=== PATIENT | female | born 1950 | race Caucasian/White ===

== ENCOUNTER 2018-11-24 12:12 | Emergency (ER) | payer OTHER, SELFPAY ==
[2018-11-24] VITALS (7 sets, daily range): BP systolic 161–201; BP diastolic 80–104; PULSE 97–128; RESP 16–29; TEMP 36.8–37.4; O2SAT 97–100
--- NOTE | 2018-11-24 12:25 | DI.RAD.S_ITS ---
PROCEDURE: XR CHEST 1V INDICATIONS: chest pain TECHNIQUE: One view of the chest was acquired. COMPARISON: None. FINDINGS: Surgical changes and devices: None. Lungs and pleura: Lungs are clear. No pleural effusions or pneumothorax. Mediastinum: Mediastinal contours appear normal. Heart size is normal. Bones and chest wall: No suspicious bony lesions. Overlying soft tissues appear unremarkable. IMPRESSION: Normal for age, source of current chest pain symptoms is not seen. Dictated by: Kei Trinh M.D. on 11/24/2018 at 12:55 Approved by: Kei Trinh M.D. on 11/24/2018 at 12:55
--- NOTE | 2018-11-24 12:28 | ED_ITS ---
HPI - General Adult General Chief complaint: Hypertension Stated complaint: high blood sugar, nausea, anxiety, diarrhea Time Seen by Provider: 11/24/18 12:28 Source: patient Mode of arrival: ambulatory Limitations: no limitations History of Present Illness HPI narrative: 68-year-old female comes the emergency department for multiple reasons. She states that she has been anxious for the past several days. She does have a history of anxiety. Does not take any anxiety medications. She also is diabetic. Not on insulin. She states she has been taking her blood sugars at home the past couple days and today it was greater than 300 which he states it has never been that high in the past. She also states that her blood pressure was elevated. She has not tried anything for her symptoms prior to arrival. Related Data Home Medications Medication Instructions Recorded Confirmed Vitamin D3 1 cap PO DAILY #0 12/29/11 11/24/18 multivitamin 1 tab PO DAILY #0 03/15/12 11/24/18 Anxiety Balance 1 dose PO DAILY 11/24/18 11/24/18 Calms 1 dose PO DAILY 11/24/18 11/24/18 Vitamin C 1 tab PO DAILY 11/24/18 11/24/18 glyburide 2.5 mg PO DAILY 11/24/18 11/24/18 levothyroxine 150 mcg PO DAILY 11/24/18 11/24/18 lisinopril 10 mg PO DAILY 11/24/18 11/24/18 metformin 1,000 mg PO QPM 11/24/18 11/24/18 metformin [Glucophage] 500 mg PO QAM 11/24/18 11/24/18 vitamin B complex 1 cap PO DAILY 11/24/18 11/24/18 Previous Rx's Medication Instructions Recorded Glucose: Test Strips 0 str INTRADERMAL SEE INSTRUCTIONS 09/28/18 #100 str lorazepam [Ativan] 0.5 mg PO BID-TID PRN #14 tab 11/24/18 Allergies Allergy/AdvReac Type Severity Reaction Status Date / Time No Known Drug Allergies Allergy Unknown Verified 11/24/18 12:25 Review of Systems Constitutional Denies fatigue, Denies fever(s) and Denies headache(s) ENT Ears, Nose, Mouth, and Throat: Denies dizziness and Denies headache(s) Cardiovascular Denies chest pain, Denies syncope, Denies leg edema, Denies palpitations and Denies dyspnea Comments: Elevated blood pressure Respiratory Denies dyspnea and Denies wheezing Gastrointestinal Gastrointestinal: Denies abdominal pain, Denies nausea and Denies vomiting Genitourinary Denies dysuria Musculoskeletal Denies myalgias and Denies arthralgias Integumentary/Breasts Denies rash Neurologic Denies dizziness, Denies syncope and Denies headache(s) Psychiatric Reports anxiety Endocrine Denies fatigue and Denies palpitations Hematologic/Lymphatic Denies easy bleeding and Denies easy bruising Allergic/Immunologic Denies wheezing PFSH Medical History Diabetes (Acute) Surgical History Status post delivery Status post delivery Family History Brother Cancer Brother Age: 72 Diabetes mellitus Child Age: 47 Ovarian cancer Colon cancer Father Cancer Diabetes mellitus Hypertension Grandmother Cancer Mother Cancer Grandmother Diabetes mellitus Social History Smoking Status: Never smoker Family History Brother Cancer Brother Age: 72 Diabetes mellitus Child Age: 47 Ovarian cancer Colon cancer Father Cancer Diabetes mellitus Hypertension Grandmother Cancer Mother Cancer Grandmother Diabetes mellitus Social History Smoking Status: Never smoker Exam Initial Vital Signs Initial Vital Signs: Vital Signs Temperature 98.3 F 11/24/18 12:15 Pulse Rate 128 H 11/24/18 12:15 Respiratory Rate 24 11/24/18 12:15 Blood Pressure 201/104 H 11/24/18 12:15 Pulse Oximetry 100 11/24/18 12:15 Const General: cooperative, well groomed and anxious Orientation: alert, awake and oriented x3 HENMT Head: normal to inspection and normocephalic Chest Chest: normal inspection of the chest Resp Effort & Inspection: normal respiratory effort Auscultation: clear to auscultation bilaterally Cardio Rate: tachycardic Rhythm: regular rhythm Pulses: radial pulses present GI Inspection: non-distended Palpation: No firm and No tender Skin Lesions: no lesions Rashes: no rashes Neuro General: alert, awake and oriented x3 Extrem General: normal to inspection, capillary refill normal and No edema Psych Appearance: grossly normal and well kempt Speech and Movement: not agitated and restless Mood: anxious mood and No angry Affect: sad Course Orders Ordered: ED Orders 11/24/18 12:25 XR chest 1V Stat EKG-12 Lead Stat 11/24/18 12:27 Complete Blood Count AUTO DIFF Stat Comprehensive Metabolic Panel Stat Lipase Stat Partial Thromboplastin Time Stat Prothrombin Time INR Stat Thyroid Stimulating Hormone Stat Troponin & CK Cardiac Panel Stat 11/24/18 13:10 Ictotest Urine Stat Urine Microscopic Stat Discontinued Medications Lorazepam (Ativan) 1 mg IV NOW ONE Stop: 11/24/18 12:42 Last Admin: 11/24/18 12:47 Dose: 1 mg Vital Signs - 8 hr 11/24/18 12:15 11/24/18 12:49 11/24/18 13:30 Temperature 98.3 F Pulse Rate 128 H 114 H 98 H Respiratory Rate 24 29 H 21 Blood Pressure 201/104 H Blood Pressure [Left Arm] 183/94 H 181/89 H Pulse Oximetry 100 99 97 11/24/18 14:02 11/24/18 14:30 11/24/18 15:00 Temperature Pulse Rate 103 H 97 H 102 H Respiratory Rate 16 18 17 Blood Pressure Blood Pressure [Left Arm] 161/80 H 194/96 H 173/86 H Pulse Oximetry 98 98 99 11/24/18 15:27 Temperature 99.4 F Pulse Rate 102 H Respiratory Rate 19 Blood Pressure 173/86 H Blood Pressure [Left Arm] Pulse Oximetry 99 Medical Decision Making Medical Records Medical records reviewed: Yes I reviewed the patient's medical records. Lab Data Lab results reviewed: Yes I reviewed the patient's lab results. Result diagrams: 11/24/18 12:27 11/24/18 12:27 Lab Results 11/24/18 11/24/18 11/24/18 Range/Units 12:27 12:27 12:27 WBC 11.2 H (4.5-11.0) X10^3/uL RBC 4.80 (4.0-5.2) X10^6/uL Hgb 13.8 (12.0-16.0) g/dL Hct 41.2 (36-46) % MCV 85.7 (80-100) fL MCH 28.8 (26-34) PG MCHC 33.6 (30-36) % RDW 13.1 (11.6-14.8) % Plt Count 230 (150-400) X10^3/uL Neut % (Auto) 80.3 H (50-75) % Lymph % (Auto) 14.4 L (25-40) % George % (Auto) 4.3 (3-14) % Eos % (Auto) 0.6 L (2-4) % Baso % (Auto) 0.4 (0-2) % Neut # (Auto) 9000 H (1408-7888) /uL Lymph # (Auto) 1600 (8244-8001) /uL George # (Auto) 500 (0-900) /uL Eos # (Auto) 100 (0-450) /uL Baso # (Auto) 0 (0-100) /uL PT 12.2 (10.1-12.7) SECONDS INR 1.1 (0.9-1.3) APTT 28 (26.4-36.2) SECONDS Sodium 133 L (137-145) mmol/L Potassium 4.5 (3.4-5.1) mmol/L Chloride 96 L (98-107) mmol/L Carbon Dioxide 23 (22-32) mmol/L BUN 20 H (7-17) mg/dL Creatinine 1.00 (0.52-1.04) mg/dL Estimated GFR 55.0 L (>60) mL/min BUN/Creatinine Ratio 20.0 (6-22) Glucose 312 H (80-110) mg/dL Calcium 9.3 (8.4-10.2) mg/dL Total Bilirubin 0.7 (0.2-1.3) mg/dL AST 20 (14-36) IU/L ALT 28 (9-52) IU/L Alkaline Phosphatase 83 (38-126) U/L Total Creatine Kinase 60 (30-135) U/L CK-MB (CK-2) TNP CK-MB (CK-2) Rel Index TNP Troponin I 0.012 (0.01-0.034) ng/mL Total Protein 7.5 (6.3-8.2) g/dL Albumin 4.6 (3.5-5.0) g/dL Globulin 2.9 (1.7-4.1) g/dL Albumin/Globulin Ratio 1.6 (1.0-2.8) Lipase 48 (23-300) U/L TSH (0.47-4.68) uIU/mL Urine Ictotest (Negative) Urine RBC (0-5/HPF) Urine WBC (0-5/HPF) Ur Squamous Epith Cells Urine Bacteria (None) Hyaline Casts (None) Ur Culture Indicated? 11/24/18 11/24/18 Range/Units 12:27 13:10 WBC (4.5-11.0) X10^3/uL RBC (4.0-5.2) X10^6/uL Hgb (12.0-16.0) g/dL Hct (36-46) % MCV (80-100) fL MCH (26-34) PG MCHC (30-36) % RDW (11.6-14.8) % Plt Count (150-400) X10^3/uL Neut % (Auto) (50-75) % Lymph % (Auto) (25-40) % George % (Auto) (3-14) % Eos % (Auto) (2-4) % Baso % (Auto) (0-2) % Neut # (Auto) (2569-9563) /uL Lymph # (Auto) (6986-0092) /uL George # (Auto) (0-900) /uL Eos # (Auto) (0-450) /uL Baso # (Auto) (0-100) /uL PT (10.1-12.7) SECONDS INR (0.9-1.3) APTT (26.4-36.2) SECONDS Sodium (137-145) mmol/L Potassium (3.4-5.1) mmol/L Chloride (98-107) mmol/L Carbon Dioxide (22-32) mmol/L BUN (7-17) mg/dL Creatinine (0.52-1.04) mg/dL Estimated GFR (>60) mL/min BUN/Creatinine Ratio (6-22) Glucose (80-110) mg/dL Calcium (8.4-10.2) mg/dL Total Bilirubin (0.2-1.3) mg/dL AST (14-36) IU/L ALT (9-52) IU/L Alkaline Phosphatase (38-126) U/L Total Creatine Kinase (30-135) U/L CK-MB (CK-2) CK-MB (CK-2) Rel Index Troponin I (0.01-0.034) ng/mL Total Protein (6.3-8.2) g/dL Albumin (3.5-5.0) g/dL Globulin (1.7-4.1) g/dL Albumin/Globulin Ratio (1.0-2.8) Lipase (23-300) U/L TSH 0.07 L (0.47-4.68) uIU/mL Urine Ictotest Negative (Negative) Urine RBC 1-5/hpf (0-5/HPF) Urine WBC 1-5/hpf (0-5/HPF) Ur Squamous Epith Cells 0-1 /hpf Urine Bacteria Few (2-10) H (None) Hyaline Casts 0-1/lpf (None) Ur Culture Indicated? Cult not indicated Urine Dip Bedside Urine Glucose 1000 mg/dl Bedside Urine Bilirubin + 1 Bedside Urine Ketone ++ 40 Urine Specific [place] 1.025 Bedside Urine Occult Blood ++ Bedside Urine pH 5.5 Bedside Urine Protein ++ 100 Bedside Urine Urobilinogen - Negative Bedside Urine Nitrite - Negative Bedside Urine Leukocytes - Negative Esterase Point of care testing: Urine Dip Bedside Urine Glucose 1000 mg/dl Bedside Urine Bilirubin + 1 Bedside Urine Ketone ++ 40 Urine Specific [place] 1.025 Bedside Urine Occult Blood ++ Bedside Urine pH 5.5 Bedside Urine Protein ++ 100 Bedside Urine Urobilinogen - Negative Bedside Urine Nitrite - Negative Bedside Urine Leukocytes - Negative Esterase Imaging Data Chest x-ray: Radiologist's impression: Patient: Mana Stewart R#: [id number] : 9Acct:[id number] Age/Sex: 68 / FDate of Service: 11/24/18 Loc: ED Accession Number: [id number] Procedure: XR chest 1V Ordering Provider: Gaston Kathleen D.O. PROCEDURE: XR CHEST 1V INDICATIONS: chest pain TECHNIQUE: One view of the chest was acquired. COMPARISON: None. FINDINGS: Surgical changes and devices: None. Lungs and pleura: Lungs are clear. No pleural effusions or pneumothorax. Mediastinum: Mediastinal contours appear normal. Heart size is normal. Bones and chest wall: No suspicious bony lesions. Overlying soft tissues appear unremarkable. IMPRESSION: Normal for age, source of current chest pain symptoms is not seen. Dictated by: Kei Trinh M.D. on 11/24/2018 at 12:55 Approved by: Kei Trinh M.D. on 11/24/2018 at 12:55 ECG Data Attestation: I personally reviewed and interpreted this ECG as follows: Prior ECG tracings: not available for review Interpretation: Sinus tachycardia Ventricular rate of 122 Left axis deviation Normal QRS Normal QTC Nonspecific ST T wave changes MDM Narrative Medical decision making narrative: Patient troponin is negative. After she received the Ativan she reported a great improvement in all of her symptoms. I do suspect that the vast majority of her symptoms today were caused by anxiety. She was hyperglycemic but no signs of DKA. Her TSH is low. She has had thyroid cancer in the past. Is on Synthroid. I do not feel that she is in thyroid storm. She has not had a change in her Synthroid in some time. Will send home with a short course of Ativan. She was instructed to contact her primary care doctor for follow-up. She was given return precautions. She expressed und erstanding and agreement with plan. Discharge Plan Departure Patient Disposition: Home Clinical Impression: Anxiety, Hyperglycemia, Heart palpitations Discharge Date/Time: 11/24/18 15:29 Interventions: ED Discharge Assessment Last Done: 11/24/18 15:27 Instructions: DI for Anxiety -- Adult, DI for Palpitations Activity Restrictions/Additional Instructions: Continue all of your medications as directed. I do recommend you contact your primary care doctor for a follow-up. Take the Ativan as needed for your anxiety. Return to the emergency department for any new or worsening symptoms Prescriptions: New lorazepam [Ativan] 0.5 mg tablet 0.5 mg PO BID-TID PRN (Reason: anxiety) Qty: 14 RF: 0 No Action Vitamin D3 1 cap PO DAILY Qty: 0 RF: 0 multivitamin Tablet 1 tab PO DAILY Qty: 0 RF: 0 Glucose: Test Strips Intradermal SEE INSTRUCTIONS Qty: 100 RF: 9 metformin [Glucophage] 500 mg tablet 500 mg PO QAM RF: 0 lisinopril 10 mg tablet 10 mg PO DAILY RF: 0 levothyroxine 150 mcg tablet 150 mcg PO DAILY RF: 0 Anxiety Balance 1 dose PO DAILY RF: 0 metformin 500 mg tablet 1,000 mg PO QPM RF: 0 vitamin B complex Capsule 1 cap PO DAILY RF: 0 Calms 1 dose PO DAILY RF: 0 Vitamin C 1 tab PO DAILY RF: 0 glyburide 2.5 mg tablet 2.5 mg PO DAILY RF: 0 Referrals: Karely Álvarez ARNP [Primary Care Provider] -
[2018-11-24 12:46] LABS: Add Manual Diff / Slide Review NO; Basophils Absolute Auto 0 /uL (0-100); Basophils Percent Auto 0.4 % (0-2); Eosinophils Absolute Auto 100 /uL (0-450); Eosinophils Percent Auto 0.6 % (2-4); Hematocrit 41.2 % (36-46); Hemoglobin 13.8 g/dL (12.0-16.0); Lymphocytes Absolute Auto 1600 /uL (1100-4500); Lymphocytes Percent Auto 14.4 % (25-40); Mean Corpuscular HGB Conc 33.6 % (30-36); Mean Corpuscular Hemoglobin 28.8 PG (26-34); Mean Corpuscular Volume 85.7 fL (80-100); Monocytes Absolute Auto 500 /uL (0-900); Monocytes Percent Auto 4.3 % (3-14); Neutrophils Absolute Auto 9000 /uL (1500-7000); Neutrophils Percent Auto 80.3 % (50-75); Platelet Count 230 X10^3/uL (150-400); Red Cell Distribution Width 13.1 % (11.6-14.8); White Blood Cell Count 11.2 X10^3/uL (4.5-11.0)
[2018-11-24] MEDS: LORazepam 2 MG/ML SYRINGE 1 MG IV (12:47)
[2018-11-24 12:57] LABS: INR 1.1 (0.9-1.3); Prothrombin Time 12.2 SECONDS (10.1-12.7)
[2018-11-24 13:00] LABS: PTT Partial Thromboplastin Tim 28 SECONDS (26.4-36.2)
[2018-11-24 13:02] LABS: Alanine Aminotransferase 28 IU/L (9-52); Albumin 4.6 g/dL (3.5-5.0); Albumin Globulin Ratio 1.6 (1.0-2.8); Alkaline Phosphatase 83 U/L (38-126); Aspartate Aminotransferase 20 IU/L (14-36); Bilirubin Total 0.7 mg/dL (0.2-1.3); Blood Urea Nitrogen 20 mg/dL (7-17); Calcium 9.3 mg/dL (8.4-10.2); Carbon Dioxide 23 mmol/L (22-32); Chloride 96 mmol/L (98-107); Creatine Kinase 60 U/L (30-135); Globulin 2.9 g/dL (1.7-4.1); Glucose 312 mg/dL (80-110); HEMOLYSIS < 15 (0-50); Lipase 48 U/L (23-300); Potassium 4.5 mmol/L (3.4-5.1); Sodium 133 mmol/L (137-145); Total Protein 7.5 g/dL (6.3-8.2)
[2018-11-24 13:14] LABS: Troponin I 0.012 ng/mL (0.01-0.034)
[2018-11-24 13:33] LABS: Thyroid Stimulating Hormone 0.07 uIU/mL (0.47-4.68)
[2018-11-24 13:48] LABS: Bacteria Urine Few (2-10); Culture Indicated Urine Cult Not Indicated; Hyaline Casts Urine 0-1/LPF; Ictotest Urine Negative (Negative); RBC Urine 1-5/HPF (0-5/HPF); Squamous Epithelial Cell Urine 0-1 /HPF; WBC Urine 1-5/HPF (0-5/HPF)
== END 2018-11-24 15:29 | disposition home or self-care (01) ==
PROVIDERS: Emergency Provider Emergency Medicine; Family Provider Internal Medicine; PCP Internal Medicine
DX: F41.9 Anxiety disorder, unspecified (principal); R73.9 Hyperglycemia, unspecified; R00.2 Palpitations
CPT/HCPCS: 36591; 71045; 80053; 81003; 81015; 82550; 83690; 84443; 84484; 85025; 85610; 85730; 93005; 93010; 96374; 99284; 99285; J2060

== ENCOUNTER → 2019-05-13 12:39 | Outpatient (CLI) | payer OTHER, SELFPAY ==
--- NOTE | 2019-05-13 | DI.MRI.S_ITS ---
PROCEDURE: MR HEAD/BRAIN WO/W CON INDICATIONS: BALANCE PROBLEMS TECHNIQUE: Noncontrast axial T1 spin echo, axial T2 fast spin echo, sagittal and axial FLAIR, coronal T2 fast spin echo, axial gradient echo, axial diffusion and ADC through the brain. After the administration of contrast, axial and coronal T1 spin echo with fat saturation through the brain. COMPARISON: None. FINDINGS: Image quality: Excellent. CSF spaces: Basal cisterns are patent. No extra-axial fluid collections. Ventricles are normal in size and shape. Brain: No midline shift. Left parietal encephalomalacia, chronic. In the left parietal extra-axial region, there is ill-defined nodular enhancement measuring 9 x 7 mm on axial image 129 series 14. There is cerebral volume loss for age. There is periventricular white matter chronic small vessel ischemic change. The brainstem appears normal. Diffusion-weighted images demonstrate no acute ischemic insults. No chronic ischemic insults. Normal intravascular flow voids are present. Skull and face: Left parietal calvarial signal changes presumably postoperative. Orbits appear normal. Sinuses: Sinuses and mastoids appear clear. IMPRESSION: Chronic left parietal encephalomalacia. Largely extra-axial appearing, ill-defined nodular enhancement in the region of left parietal calvarial postsurgical change. This could represent reactive dural enhancement, although technically indeterminate in the absence of relevant comparison studies. As such, a followup MRI brain with and without contrast in 3 months could be three-month could be performed if there is clinical suspicion for de danica or recurrent neoplasm. Alternatively, if prior contrast-enhanced studies can be obtained, these would be most helpful for further assessment of malignant potential. No evidence of acute ischemia. Dictated by: Garrett Fraser M.D. on 05/13/2019 at 14:42 Approved by: Garrett Fraser M.D. on 05/13/2019 at 14:58
== END ==
PROVIDERS: PCP Internal Medicine; Visit Provider Internal Medicine
DX: G93.89 Other specified disorders of brain (principal)
CPT/HCPCS: 70553; A9579

== ENCOUNTER 2020-11-13 19:07 | Inpatient (IN) | payer OTHER, SELFPAY ==
[2020-11-13] VITALS (11 sets, daily range): BP systolic 152–196; BP diastolic 73–96; PULSE 97–115; RESP 17–33; TEMP 36.4–36.7; O2SAT 97–100; BMI 23.6
--- NOTE | 2020-11-13 19:27 | ED.ABDPAIN ---
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 She admits to nausea but no vomiting and gradually increasing pain is seems to be worse with motion and improves with rest. She has had no fever chills and denies any new medications or change in her diet. She states she has had no significant change in her bowel habits other than some loose stools which seems to be rather common for her, and has been passing gas like normal. MD complaint: abdominal pain Onset (ago): hour(s) Pain Consistency: constant Location: RUQ Severity: severe Quality: cramping and aching Radiation: back Relieving factors: rest Exacerbating factors: eating and movement Associated symptoms: nausea Related Data Home Medications Medication Instructions Recorded Confirmed Vitamin D3 1 cap PO DAILY #0 12/29/11 11/13/20 multivitamin 1 tab PO DAILY #0 03/15/12 11/13/20 Vitamin C 1 tab PO DAILY 11/24/18 11/13/20 glyburide 2.5 mg PO DAILY 11/24/18 11/13/20 levothyroxine 150 mcg PO DAILY 11/24/18 11/13/20 lisinopril 10 mg PO DAILY 11/24/18 11/13/20 metformin 500 mg PO QPM 11/24/18 11/13/20 metformin [Glucophage] 500 mg PO QAM 11/24/18 11/13/20 vitamin B complex 1 cap PO DAILY 11/24/18 11/13/20 Previous Rx's Medication Instructions Recorded Glucose: Test Strips 0 str INTRADERMAL SEE INSTRUCTIONS 09/28/18 #100 str Allergies Allergy/AdvReac Type Severity Reaction Status Date / Time No Known Drug Allergies Allergy Unknown Verified 11/24/18 12:25 Review of Systems Constitutional Constitutional: Denies chills, Denies fatigue, Denies fever(s), Denies frequent falls, Denies lethargy and Denies weakness Eyes Eyes: Denies change in vision, Denies eye discharge, Denies irritation and Denies loss of vision ENT Ears, Nose, Mouth, and Throat: Denies change in voice, Denies dizziness, Denies neck pain, Denies sore throat and Denies throat swelling Cardiovascular Cardiovascular: Denies chest pain, Denies irregular heart rhythm, Denies lightheadedness, Denies palpitations, Denies dyspnea, Denies dyspnea on exertion and Denies orthopnea Respiratory Respiratory: Denies cough, Denies dyspnea, Denies dyspnea on exertion and Denies wheezing Gastrointestinal Gastrointestinal: Reports abdominal pain, Denies change in bowel habits, Denies diarrhea, Denies nausea and Denies vomiting Musculoskeletal Musculoskeletal: Denies neck pain and Denies numbness Integumentary/Breasts Skin/Breast: Denies pruritus, Denies erythema, Denies rash and Denies wounds Neurologic Neurologic: Denies behavioral changes, Denies confusion, Denies dizziness, Denies frequent falls, Denies loss of vision, Denies numbness and Denies weakness Psychiatric Psychiatric: Denies anxiety, Denies behavioral changes, Denies confusion, Denies depression, Denies homicidal ideation and Denies suicidal ideation Endocrine Endocrine: Denies fatigue, Denies flushing and Denies palpitations Hematologic/Lymphatic Hematologic/Lymphatic: Denies easy bruising Allergic/Immunologic Allergic/Immunologic: Denies urticaria, Denies throat swelling and Denies wheezing Patient History Medical History Diabetes Surgical History Status post delivery Status post delivery Family History Brother Cancer Brother Age: 74 Diabetes mellitus Child Age: 49 Ovarian cancer Colon cancer Father Cancer Diabetes mellitus Hypertension Grandmother Cancer Mother Cancer Grandmother Diabetes mellitus Social History household members: family Smoking Status: Never smoker Smoking Status: Never smoker alcohol intake frequency: 0-2 drinks per day Substance Use Type: does not use Exam Narrative Exam Narrative: GENERAL: [70] year old patient appears stated age. Well-nourished, well-developed patient, in mild distress. HEAD: Atraumatic. Normocephalic. EYES: Pupils equal round and reactive. Extraocular motions intact. No scleral icterus. No injection or drainage. ENT: Nose without bleeding, purulent drainage. Throat without erythema, tonsillar hypertrophy or exudate. Airway patent. NECK: Trachea midline. Non tender CARDIOVASCULAR: Regular rate and rhythm without murmurs, gallops, or rubs. RESPIRATORY: Clear to auscultation. Breath sounds equal bilaterally. No wheezes, rales, or rhonchi. GASTROINTESTINAL: Abdomen soft, tender in the periumbilical region, nondistended. No rebound EXTREMITIES: No edema or joint tenderness. BACK: Nontender without deformity or crepitance. No flank tenderness. NEURO: AOx3. SKIN: No rash or erythema of visible areas Initial Vital Signs Initial Vital Signs: Vital Signs Temperature 97.6 F 11/13/20 19:13 Pulse Rate 115 H 11/13/20 19:13 Respiratory Rate 20 11/13/20 19:13 Blood Pressure 196/96 H 11/13/20 19:13 Pulse Oximetry 99 11/13/20 19:13 Course Orders Ordered: ED Orders 11/13/20 19:28 EKG-12 Lead Stat 11/13/20 19:43 XR acute abdomen series Stat 11/13/20 19:46 Complete Blood Count AUTO DIFF Stat Comprehensive Metabolic Panel Stat Lactate (Lactic Acid) Stat Lipase Stat Partial Thromboplastin Time Stat Prothrombin Time INR Stat 11/13/20 20:18 CT abdomen pelvis w con Stat 11/13/20 21:30 Urine Culture Stat Urine Microscopic Stat 11/13/20 22:00 COVID19 Stat Hydromorphone HCl (Hydromorphone 0.5 Mg Inj) 0.5 mg IV Q2H PRN PRN Reason: Pain, Moderate (4-6) Sodium Chloride (Normal Saline 0.9%) 1,000 mls @ 125 mls/hr IV CONT NEGRITA Last Admin: 11/13/20 22:58 Dose: 125 mls/hr Documented by: BENJA Ondansetron HCl (Ondansetron 4 Mg/2 Ml Inj) 4 mg IV Q4HR PRN PRN Reason: Nausea And Vomiting Discontinued Medications Hydromorphone HCl (Hydromorphone 0.5 Mg Inj) 0.25 mg IV NOW ONE Stop: 11/13/20 19:48 Last Admin: 11/13/20 19:57 Dose: 0.25 mg Documented by: AMY Hydromorphone HCl (Hydromorphone 0.5 Mg Inj) 0.25 mg IV Q2H PRN PRN Reason: Pain, Severe (7-10) Last Admin: 11/13/20 22:56 Dose: 0.25 mg Documented by: BENJA Sodium Chloride (Normal Saline 0.9%) 1,000 mls @ 1,000 mls/hr IV BOLUS ONE Stop: 11/13/20 21:06 Last Infusion: 11/13/20 22:08 Dose: 0 mls/hr Documented by: Admin: 11/13/20 20:10 Dose: 1,000 mls/hr Documented by: KAREN Pantoprazole Sodium (Pantoprazole 40 Mg Vial) 40 mg IV NOW ONE Stop: 11/13/20 20:19 Last Admin: 11/13/20 20:24 Dose: 40 mg Documented by: KAREN Consultations Consultation #1: 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) happy to admit on his service, NO NG for now (unless vomiting) NPO , pain control , IVF @ 125mL/hr Vital Signs Vital signs: Vital Signs - 8 hr 11/13/20 19:13 11/13/20 19:55 11/13/20 20:00 Temperature 97.6 F Pulse Rate 115 H 108 H 101 H Respiratory Rate 20 19 17 Blood Pressure 196/96 H Pulse Oximetry 99 100 100 11/13/20 20:23 11/13/20 20:42 11/13/20 21:00 Temperature Pulse Rate 97 H 108 H 101 H Respiratory Rate 21 28 H Blood Pressure 152/73 H Pulse Oximetry 98 97 97 11/13/20 21:30 Temperature Pulse Rate 108 H Respiratory Rate 22 Blood Pressure Pulse Oximetry 99 MDM - Abdominal Pain Lab Data Result diagrams: 11/13/20 19:46 11/13/20 19:46 Labs: Lab Results 11/13/20 11/13/20 11/13/20 Range/Units 19:46 19:46 19:46 WBC 14.9 H (4.5-11.0) X10^3/uL RBC 4.66 (4.0-5.2) X10^6/uL Hgb 13.3 (12.0-16.0) g/dL Hct 39.7 (36-46) % MCV 85.3 (80-100) fL MCH 28.5 (26-34) PG MCHC 33.4 (30-36) % RDW 13.5 (11.6-14.8) % Plt Count 229 (150-400) X10^3/uL Neut % (Auto) 75.5 H (50-75) % Lymph % (Auto) 14.6 L (25-40) % [place]alier % (Auto) 7.2 (3-14) % Eos % (Auto) 2.0 (2-4) % Baso % (Auto) 0.7 (0-2) % Neut # (Auto) 98830 H (3899-9612) /uL Lymph # (Auto) 2200 (7712-2041) /uL [place]alier # (Auto) 1100 H (0-900) /uL Eos # (Auto) 300 (0-450) /uL Baso # (Auto) 100 (0-100) /uL PT 12.0 (10.1-12.7) SECONDS INR 1.0 (0.9-1.3) APTT 32 (26.4-36.2) SECONDS Sodium 137 (137-145) mmol/L Potassium 3.7 (3.4-5.1) mmol/L Chloride 103 (98-107) mmol/L Carbon Dioxide 24 (22-32) mmol/L BUN 25 H (7-17) mg/dL Creatinine 1.08 H (0.52-1.04) mg/dL Estimated GFR 50.0 L (>60) mL/min BUN/Creatinine Ratio 23.1 H (6-22) Glucose 200 H (80-110) mg/dL Lactate (0.7-2.1) mmol/L Calcium 9.6 (8.4-10.2) mg/dL Total Bilirubin 0.3 (0.2-1.3) mg/dL AST 18 (14-36) IU/L ALT 18 (<35) IU/L Alkaline Phosphatase 73 (38-126) U/L Total Protein 7.3 (6.3-8.2) g/dL Albumin 4.4 (3.5-5.0) g/dL Globulin 2.9 (1.7-4.1) g/dL Albumin/Globulin Ratio 1.5 (1.0-2.8) Lipase 69 (23-300) U/L Urine RBC (0-5/HPF) Urine WBC (0-5/HPF) Ur Transition Epith Cell (0-5/HPF) Ur Renal Epithelial Cell (0-1/HPF) Urine Bacteria (None) Urine Mucus (Negative) Ur Culture Indicated? 11/13/20 11/13/20 11/13/20 Range/Units 19:46 21:30 21:54 WBC (4.5-11.0) X10^3/uL RBC (4.0-5.2) X10^6/uL Hgb (12.0-16.0) g/dL Hct (36-46) % MCV (80-100) fL MCH (26-34) PG MCHC (30-36) % RDW (11.6-14.8) % Plt Count (150-400) X10^3/uL Neut % (Auto) (50-75) % Lymph % (Auto) (25-40) % Cavalier % (Auto) (3-14) % Eos % (Auto) (2-4) % Baso % (Auto) (0-2) % Neut # (Auto) (2909-1286) /uL Lymph # (Auto) (5661-3589) /uL Cavalier # (Auto) (0-900) /uL Eos # (Auto) (0-450) /uL Baso # (Auto) (0-100) /uL PT (10.1-12.7) SECONDS INR (0.9-1.3) APTT (26.4-36.2) SECONDS Sodium (137-145) mmol/L Potassium (3.4-5.1) mmol/L Chloride (98-107) mmol/L Carbon Dioxide (22-32) mmol/L BUN (7-17) mg/dL Creatinine (0.52-1.04) mg/dL Estimated GFR (>60) mL/min BUN/Creatinine Ratio (6-22) Glucose (80-110) mg/dL Lactate 3.0 H 0.9 (0.7-2.1) mmol/L Calcium (8.4-10.2) mg/dL Total Bilirubin (0.2-1.3) mg/dL AST (14-36) IU/L ALT (<35) IU/L Alkaline Phosphatase (38-126) U/L Total Protein (6.3-8.2) g/dL Albumin (3.5-5.0) g/dL Globulin (1.7-4.1) g/dL Albumin/Globulin Ratio (1.0-2.8) Lipase (23-300) U/L Urine RBC 0-1/hpf (0-5/HPF) Urine WBC 30-100/hpf H (0-5/HPF) Ur Transition Epith Cell 1-5/hpf (0-5/HPF) Ur Renal Epithelial Cell 0-1/hpf (0-1/HPF) Urine Bacteria Few (2-10) H (None) Urine Mucus 1+ H (Negative) Ur Culture Indicated? Specimen cultured Point of care testing: Urine Dip Bedside Urine Glucose Negative Bedside Urine Bilirubin - Negative Bedside Urine Ketone - Negative Urine Specific [place] 1.010 Bedside Urine Occult Blood ++ Bedside Urine pH 6.0 Bedside Urine Protein +/- 15 Bedside Urine Urobilinogen - Negative Bedside Urine Nitrite - Negative Bedside Urine Leukocytes ++ [address] scan - abdomen/pelvis: Radiologist's Impression: Mana Stewart Kiana 70 F [address] Scan ReportSigned Patient: Mana Stewart [facility]#: [id number]: 1950cct:[id number]/Sex: 70 / FDate of Service: 11/13/20Loc: EDAccession Number: [id number] Procedure: CT abdomen pelvis w con Ordering Provider: Tay Ayers D.O. PROCEDURE: CT ABDOMEN PELVIS W CON INDICATIONS: severe abdominal pain TECHNIQUE: After the administration of intravenous contrast, 5 mm thick sections acquired from the diaphragm to the symphysis. 5 mm coronal and sagittal reformats were acquired. For radiation dose reduction, the following was used: automated exposure control, adjustment of mA and/or kV according to patient size. COMPARISON: [facility], CT, ABDOMEN/PELVIS WITH CONTRAST, 11/19/2013, 5:23. FINDINGS: Image quality: Excellent. ABDOMEN: Lung bases: Lung bases are clear. Heart size is normal. There is a small hiatal hernia. Solid organs: Liver is normal in size and enhancement. There is a small amount of ascites around the liver. Gallbladder is surgically absent. Biliary system is mildly dilated. Common bile duct measures up to 8 mm. Pancreas is mildly atrophic and enhances normally. Spleen is normal in size and enhancement. No adrenal nodules. Kidneys demonstrate normal size and enhancement, without hydronephrosis. Peritoneum and bowel: Small bowel loops are filled with fluid and mildly distended measuring up to 3 cm. There is short segmental wall thickening and stranding involving the jejunum. Distal to the area, the small bowel loops are normal in caliber. The CT findings are consistent with small bowel obstruction. There are innumerable colonic diverticula. No CT findings suggests mild diverticulitis. There are postsurgical changes in the area of cecum. No free fluid or air. Nodes and vessels: No retroperitoneal or mesenteric adenopathy by size criteria. Aorta and inferior vena cava are normal in size. Miscellaneous: No ventral hernias. PELVIS: Genitourinary: Bladder is not fully distended. Uterus is unremarkable. No adnexal mass. No pathological free-fluid in pelvis. Miscellaneous: No inguinal hernias or adenopathy. Bones: No suspicious bony lesions. No vertebral body compression fractures. Severe degenerative changes in lumbar spine. IMPRESSION: 1. There is small bowel obstruction. There is short segmental thickening and stranding in the distal jejunum, which is the transitional zone for small bowel caliber change. 2. Extensive colonic diverticulosis. No findings to suggest acute diverticulitis. 3. There is a trace amount of free fluid. Dictated by: Chintan Travis M.D. on 11/13/2020 at 21:18 Approved by: Chintan Travis M.D. on 11/13/2020 at 21:27 Discharge Plan Departure Patient Disposition: Admitted As Inpatient Clinical Impression: Partial small bowel obstruction Admit Date/Time: 11/13/20 21:58 Admit Provider: Kermit Sahu
--- NOTE | 2020-11-13 19:43 | DI.RAD.S_ITS ---
PROCEDURE: XR ACUTE ABDOMEN SERIES INDICATIONS: Abdominal pain TECHNIQUE: One view chest and two views of the abdomen were acquired. COMPARISON: [facility], CT, ABDOMEN/PELVIS WITH CONTRAST, 11/19/2013, 5:23. FINDINGS: Surgical changes and devices: There are surgical clips in the right upper abdomen, presumably related to cholecystectomy.. Chest: Lungs are clear. Heart size is normal. No pleural effusions. No pneumoperitoneum. Abdomen: Bowel gas pattern is nonspecific. There is relative paucity of proximal small bowel gas. There is gas in the distal small bowel and distal colon. No suspicious calcifications. Visualized solid organ contours appear normal. Bones: No suspicious bony lesions. IMPRESSION: Nonspecific nonobstructive bowel gas pattern. Dictated by: Chintan Travis M.D. on 11/13/2020 at 20:18 Approved by: Chintan Travis M.D. on 11/13/2020 at 20:22
[2020-11-13 19:51] LABS: Add Manual Diff / Slide Review NO; Basophils Absolute Auto 100 /uL (0-100); Basophils Percent Auto 0.7 % (0-2); Eosinophils Absolute Auto 300 /uL (0-450); Hematocrit 39.7 % (36-46); Hemoglobin 13.3 g/dL (12.0-16.0); Lymphocytes Absolute Auto 2200 /uL (1100-4500); Lymphocytes Percent Auto 14.6 % (25-40); Mean Corpuscular HGB Conc 33.4 % (30-36); Mean Corpuscular Hemoglobin 28.5 PG (26-34); Mean Corpuscular Volume 85.3 fL (80-100); Monocytes Absolute Auto 1100 /uL (0-900); Monocytes Percent Auto 7.2 % (3-14); Neutrophils Absolute Auto 11300 /uL (1500-7000); Neutrophils Percent Auto 75.5 % (50-75); Platelet Count 229 X10^3/uL (150-400); Red Blood Cell Count 4.66 X10^6/uL (4.0-5.2); Red Cell Distribution Width 13.5 % (11.6-14.8); White Blood Cell Count 14.9 X10^3/uL (4.5-11.0)
[2020-11-13] MEDS: HYDROMORPHONE 0.5 MG INJ 0.25 MG IV ×2 (19:57→22:56)
[2020-11-13 20:01] LABS: PTT Partial Thromboplastin Tim 32 SECONDS (26.4-36.2)
[2020-11-13 20:02] LABS: Alanine Aminotransferase 18 IU/L (<35); Albumin 4.4 g/dL (3.5-5.0); Albumin Globulin Ratio 1.5 (1.0-2.8); Alkaline Phosphatase 73 U/L (38-126); Aspartate Aminotransferase 18 IU/L (14-36); BUN Creatinine Ratio 23.1 (6-22); Bilirubin Total 0.3 mg/dL (0.2-1.3); Blood Urea Nitrogen 25 mg/dL (7-17); Calcium 9.6 mg/dL (8.4-10.2); Carbon Dioxide 24 mmol/L (22-32); Chloride 103 mmol/L (98-107); Globulin 2.9 g/dL (1.7-4.1); Glucose 200 mg/dL (80-110); HEMOLYSIS < 15 (0-50); Lipase 69 U/L (23-300); Potassium 3.7 mmol/L (3.4-5.1); Sodium 137 mmol/L (137-145); Total Protein 7.3 g/dL (6.3-8.2)
[2020-11-13] MEDS: SODIUM CHLORIDE 0.9% 1,000 ML 1000 ML IV (20:10)
--- NOTE | 2020-11-13 20:18 | DI.CT.S_ITS ---
PROCEDURE: CT ABDOMEN PELVIS W CON INDICATIONS: severe abdominal pain TECHNIQUE: After the administration of intravenous contrast, 5 mm thick sections acquired from the diaphragm to the symphysis. 5 mm coronal and sagittal reformats were acquired. For radiation dose reduction, the following was used: automated exposure control, adjustment of mA and/or kV according to patient size. COMPARISON: [facility], CT, ABDOMEN/PELVIS WITH CONTRAST, 11/19/2013, 5:23. FINDINGS: Image quality: Excellent. ABDOMEN: Lung bases: Lung bases are clear. Heart size is normal. There is a small hiatal hernia. Solid organs: Liver is normal in size and enhancement. There is a small amount of ascites around the liver. Gallbladder is surgically absent. Biliary system is mildly dilated. Common bile duct measures up to 8 mm. Pancreas is mildly atrophic and enhances normally. Spleen is normal in size and enhancement. No adrenal nodules. Kidneys demonstrate normal size and enhancement, without hydronephrosis. Peritoneum and bowel: Small bowel loops are filled with fluid and mildly distended measuring up to 3 cm. There is short segmental wall thickening and stranding involving the jejunum. Distal to the area, the small bowel loops are normal in caliber. The CT findings are consistent with small bowel obstruction. There are innumerable colonic diverticula. No CT findings suggests mild diverticulitis. There are postsurgical changes in the area of cecum. No free fluid or air. Nodes and vessels: No retroperitoneal or mesenteric adenopathy by size criteria. Aorta and inferior vena cava are normal in size. Miscellaneous: No ventral hernias. PELVIS: Genitourinary: Bladder is not fully distended. Uterus is unremarkable. No adnexal mass. No pathological free-fluid in pelvis. Miscellaneous: No inguinal hernias or adenopathy. Bones: No suspicious bony lesions. No vertebral body compression fractures. Severe degenerative changes in lumbar spine. IMPRESSION: 1. There is small bowel obstruction. There is short segmental thickening and stranding in the distal jejunum, which is the transitional zone for small bowel caliber change. 2. Extensive colonic diverticulosis. No findings to suggest acute diverticulitis. 3. There is a trace amount of free fluid. Dictated by: Chintan Travis M.D. on 11/13/2020 at 21:18 Approved by: Chintan Travis M.D. on 11/13/2020 at 21:27
[2020-11-13] MEDS: PANTOPRAZOLE 40 MG VIAL IV (20:24)
[2020-11-13 21:48] LABS: Reflexed Lactate in 2 Hours Y
[2020-11-13 21:51] LABS: Bacteria Urine Few (2-10); RBC Urine 0-1/HPF (0-5/HPF); Transitional Epi Cells Urine 1-5/HPF (0-5/HPF); WBC Urine 30-100/HPF (0-5/HPF)
[2020-11-13 21:52] LABS: Culture Indicated Urine Specimen Cultured; Mucus Urine 1+ (Negative); Renal Epithelial Cells Urine 0-1/HPF (0-1/HPF)
[2020-11-13] MEDS: HYDROMORPHONE 0.5 MG INJ (22:03)
[2020-11-13 22:14] LABS: Lactate 2HR (Lactic Acid Rflx) 0.9 mmol/L (0.7-2.1)
[2020-11-13 22:18] LABS: COVID19 -Nasal RAPID Negative (Negative)
--- NOTE | 2020-11-13 22:39 | PC.ADMIT ---
[id number] Admission Note: The patient,Mana Stewart,70 y/o, was given written information regarding hospital policies, unit procedures and contact persons. Patient's smoking status: Never smoker. Vital Signs - 8 hr 11/13/20 19:13 11/13/20 19:55 11/13/20 20:00 Temperature 97.6 F Pulse Rate 115 H 108 H 101 H Respiratory Rate 20 19 17 Blood Pressure 196/96 H Pulse Oximetry 99 100 100 11/13/20 20:23 11/13/20 20:42 11/13/20 21:00 Temperature Pulse Rate 97 H 108 H 101 H Respiratory Rate 21 28 H Blood Pressure 152/73 H Pulse Oximetry 98 97 97 11/13/20 21:30 11/13/20 22:00 11/13/20 22:11 Temperature Pulse Rate 108 H 104 H 111 H Respiratory Rate 22 33 H 27 H Blood Pressure 185/94 H Pulse Oximetry 99 99 100 11/13/20 22:15 11/13/20 22:20 Temperature 98.0 F 97.5 F L Pulse Rate 107 H 108 H Respiratory Rate 26 H 24 Blood Pressure 185/94 H 161/83 H Pulse Oximetry 100 99 Patient up from ED via stretcher. 4 person assist with slider board. Patient c/o 9/10 abd pain even shortly after getting IVP dilaudid in ED. Patient A&O, cooperative.
[2020-11-13] MEDS: SODIUM CHLORIDE 0.9% 1,000 ML 125 ML IV (22:58)
[2020-11-14 00:56] VITALS: BP 176/82; PULSE 102; RESP 18; TEMP 36.2; O2SAT 98
[2020-11-14] MEDS: HYDROMORPHONE 0.5 MG INJ IV ×2 (01:20→09:29)
[2020-11-14 04:00] VITALS: BP 155/83; PULSE 101; RESP 18; TEMP 36.3; O2SAT 98
--- NOTE | 2020-11-14 05:36 | DI.RAD.S_ITS ---
PROCEDURE: FL SMALL BOWEL FOLLOW THROUGH INDICATIONS: small bowel obstruction COMPARISON: None. FINDINGS: KUB: Right upper quadrant surgical clips. Bilateral hip joint degeneration and spondylitic changes. Intraluminal contrast noted within the bladder incidentally. Small bowel: There is normal transit time of barium through the small bowel. Contrast reaches the rectal vault at the 1 hour 45 minutes time point. Small bowel loops are of normal caliber throughout. No specific transition point identified IMPRESSION: No specific transition point identified. Contrast reaches the rectal vault at the 1 hour 45 minutes time point. Dictated by: Garrett Fraser M.D. on 11/14/2020 at 12:13 Approved by: Garrett Fraser M.D. on 11/14/2020 at 12:14
[2020-11-14 07:56] LABS: Add Manual Diff / Slide Review NO; Basophils Absolute Auto 100 /uL (0-100); Basophils Percent Auto 0.4 % (0-2); Eosinophils Absolute Auto 0 /uL (0-450); Eosinophils Percent Auto 0.1 % (2-4); Hematocrit 34.8 % (36-46); Hemoglobin 11.7 g/dL (12.0-16.0); Lymphocytes Absolute Auto 1200 /uL (1100-4500); Lymphocytes Percent Auto 10.2 % (25-40); Mean Corpuscular HGB Conc 33.7 % (30-36); Mean Corpuscular Volume 85.9 fL (80-100); Monocytes Absolute Auto 800 /uL (0-900); Monocytes Percent Auto 6.4 % (3-14); Neutrophils Absolute Auto 9900 /uL (1500-7000); Neutrophils Percent Auto 82.9 % (50-75); Platelet Count 203 X10^3/uL (150-400); Red Blood Cell Count 4.05 X10^6/uL (4.0-5.2); Red Cell Distribution Width 13.1 % (11.6-14.8); White Blood Cell Count 11.9 X10^3/uL (4.5-11.0)
[2020-11-14 08:07] LABS: BUN Creatinine Ratio 23.6 (6-22); Blood Urea Nitrogen 21 mg/dL (7-17); Calcium 8.3 mg/dL (8.4-10.2); Carbon Dioxide 25 mmol/L (22-32); Chloride 108 mmol/L (98-107); Estimated Glomerular Filt Rate > 60.0 mL/min (>60); Glucose 217 mg/dL (80-110); HEMOLYSIS < 15 (0-50); Magnesium 1.5 mg/dL (1.6-2.3); Phosphorous 3.3 mg/dL (2.8-4.1); Potassium 4.1 mmol/L (3.4-5.1); Sodium 136 mmol/L (137-145)
[2020-11-14] MEDS: INSULIN ASPART 100 UNIT/ML INSULN PEN SUBCUT (08:38)
[2020-11-14 08:39] VITALS: BP 158/76; PULSE 109; RESP 17; TEMP 36.7; O2SAT 98
[2020-11-14] MEDS: ENOXAPARIN 30 MG/0.3 ML SYRINGE SUBCUT (08:39)
--- NOTE | 2020-11-14 08:47 | P.HP_ITS ---
History of Present Illness History of Present Illness Date Patient Seen: 11/14/20 Time Patient Seen: 08:49 Chief complaint: bad stomach pain Narrative: 70-year-old female history of abdominal surgery admitted for a partial small-bowel obstruction. Yesterday she developed mid abdominal pain associated with nausea and bloating. She is not passing flatus or bowel m ovement for 2 days. She has a very remote history of colectomy followed by chemotherapy for colon cancer as well as 2 prior sections. She has never had a prior small-bowel obstruction. Admission afebrile vital signs within normal limits WBC [address] abdomen pelvis admission demonstrates dilated loops of small bowel with some mild wall thickening a transition point, no free air. This morning she feels better than yesterday had no emesis overnight was mildly nauseous and continues to have some mild mid abdominal pain. Patient History Medical History Diabetes Essential hypertension (02/13/16) History of malignant neoplasm of colon (02/13/16) History of malignant neoplasm of colon (04/06/17) History of malignant neoplasm of thyroid (12/04/14) History of meningioma of the brain (12/04/14) Type 2 diabetes mellitus without complication, without long-term current use of insulin (02/13/16) Surgical History History of colectomy Status post delivery Status post delivery Family & Social History Family History Brother Cancer Brother Age: 74 Diabetes mellitus Child Age: 49 Ovarian cancer Colon cancer Father Cancer Diabetes mellitus Hypertension Grandmother Cancer Mother Cancer Grandmother Diabetes mellitus Social History: household members family Prior Living Arrangements House Safety & Behavioral: Feels Safe in Current Yes Environment Been Physically Hurt or No Threatened By a Person Suicidal Ideation Description None Suicide Plan Description No Plan Tobacco & Substance use: Smoking Status Never smoker alcohol intake frequency 0-2 drinks per day Substance Use Type does not use Meds Home Medications and Allergies Home Medications Medication Instructions Recorded Confirmed Type Vitamin D3 1 cap PO DAILY #0 12/29/11 11/13/20 History multivitamin 1 tab PO DAILY #0 03/15/12 11/13/20 History Glucose: Test Strips 0 str INTRADERMAL SEE INSTRUCTIONS 09/28/18 11/13/20 Rx #100 str Vitamin C 1 tab PO DAILY 11/24/18 11/13/20 History glyburide 2.5 mg PO DAILY 11/24/18 11/13/20 History levothyroxine 150 mcg PO DAILY 11/24/18 11/13/20 History lisinopril 10 mg PO DAILY 11/24/18 11/13/20 History metformin 500 mg PO QPM 11/24/18 11/13/20 History metformin [Glucophage] 500 mg PO QAM 11/24/18 11/13/20 History vitamin B complex 1 cap PO DAILY 11/24/18 11/13/20 History Allergies Allergy/AdvReac Type Severity Reaction Status Date / Time No Known Drug Allergies Allergy Unknown Verified 11/24/18 12:25 Review of Systems Review of Systems ROS: Yes All systems reviewed with the patient and are negative except as otherwise documented Exam Vital Signs (past 8 hours): - 11/14/20 00:56 11/14/20 04:00 11/14/20 08:39 Temperature 97.2 F L 97.4 F L 98.0 F Pulse Rate 102 H 101 H 109 H Respiratory Rate 18 18 17 Blood Pressure 176/82 H 155/83 H 158/76 H Pulse Oximetry 98 98 98 Oxygen Delivery Method Room Air Oxygen Flow Rate 0 Narrative Exam Narrative: General-no acute distress, well nourished elderly female HEENT-moist mucous membranes, no scleral icterus Neck-supple, no lymphadenopathy Chest- non labored respirations, clear to auscultation bilaterally Cardiac-regular rate no peripheral edema Abdomen-soft, mild distension mild tenderness in the mid abdomen no peritonitis Extremities-warm, well perfused Neurological-alert and oriented, no focal deficits Objective Labs Result Diagrams: 11/14/20 07:43 11/14/20 07:43 Labs: Laboratory Results - last 24 hr 11/13/20 11/13/20 11/13/20 19:46 19:46 19:46 WBC 14.9 H RBC 4.66 Hgb 13.3 Hct 39.7 MCV 85.3 MCH 28.5 MCHC 33.4 RDW 13.5 Plt Count 229 Neut % (Auto) 75.5 H Lymph % (Auto) 14.6 L [place] % (Auto) 7.2 Eos % (Auto) 2.0 Baso % (Auto) 0.7 Neut # (Auto) 62634 H Lymph # (Auto) 2200 [place] # (Auto) 1100 H Eos # (Auto) 300 Baso # (Auto) 100 PT 12.0 INR 1.0 APTT 32 Sodium 137 Potassium 3.7 Chloride 103 Carbon Dioxide 24 BUN 25 H Creatinine 1.08 H Estimated GFR 50.0 L BUN/Creatinine Ratio 23.1 H Glucose 200 H Lactate Calcium 9.6 Phosphorus Magnesium Total Bilirubin 0.3 AST 18 ALT 18 Alkaline Phosphatase 73 Total Protein 7.3 Albumin 4.4 Globulin 2.9 Albumin/Globulin Ratio 1.5 Lipase 69 Urine RBC Urine WBC Ur Transition Epith Cell Ur Renal Epithelial Cell Urine Bacteria Urine Mucus Ur Culture Indicated? SARS-CoV-2 (PCR) 11/13/20 11/13/20 11/13/20 19:46 21:30 21:54 WBC RBC Hgb Hct MCV MCH MCHC RDW Plt Count Neut % (Auto) Lymph % (Auto) [place] % (Auto) Eos % (Auto) Baso % (Auto) Neut # (Auto) Lymph # (Auto) [place] # (Auto) Eos # (Auto) Baso # (Auto) PT INR APTT Sodium Potassium Chloride Carbon Dioxide BUN Creatinine Estimated GFR BUN/Creatinine Ratio Glucose Lactate 3.0 H 0.9 Calcium Phosphorus Magnesium Total Bilirubin AST ALT Alkaline Phosphatase Total Protein Albumin Globulin Albumin/Globulin Ratio Lipase Urine RBC 0-1/hpf Urine WBC 30-100/hpf H Ur Transition Epith Cell 1-5/hpf Ur Renal Epithelial Cell 0-1/hpf Urine Bacteria Few (2-10) H Urine Mucus 1+ H Ur Culture Indicated? Specimen cultured SARS-CoV-2 (PCR) 11/13/20 11/14/20 11/14/20 22:00 07:43 07:43 WBC 11.9 H RBC 4.05 Hgb 11.7 L Hct 34.8 L MCV 85.9 MCH 29.0 MCHC 33.7 RDW 13.1 Plt Count 203 Neut % (Auto) 82.9 H Lymph % (Auto) 10.2 L [place] % (Auto) 6.4 Eos % (Auto) 0.1 L Baso % (Auto) 0.4 Neut # (Auto) 9900 H Lymph # (Auto) 1200 [place] # (Auto) 800 Eos # (Auto) 0 Baso # (Auto) 100 PT INR APTT Sodium 136 L Potassium 4.1 Chloride 108 H Carbon Dioxide 25 BUN 21 H Creatinine 0.89 Estimated GFR > 60.0 BUN/Creatinine Ratio 23.6 H Glucose 217 H Lactate Calcium 8.3 L Phosphorus 3.3 Magnesium 1.5 L Total Bilirubin AST ALT Alkaline Phosphatase Total Protein Albumin Globulin Albumin/Globulin Ratio Lipase Urine RBC Urine WBC Ur Transition Epith Cell Ur Renal Epithelial Cell Urine Bacteria Urine Mucus Ur Culture Indicated? SARS-CoV-2 (PCR) Negative Assessment & Plan Assessment and plan (1) Partial small bowel obstruction: Problem details: 70-year-old female history of colectomy and caesarean section admitted for small-bowel obstruction. Mild distension no peritonitis. Laboratory studies and imaging were reviewed. CT abdomen pelvis demonstrates fluid-filled loops of small bowel transition point no free air. I suspect her obstruction is most likely due to adhesive disease. -NPO IV fluids -NG tube if emesis -small-bowel follow-through today -SCDs and Lovenox for VTE prophylaxis Status: Acute
[2020-11-14] MEDS: MAGNESIUM SULFATE 2 GM/50 ML PIGGYBACK IV (09:29)
[2020-11-14] MEDS: SODIUM CHLORIDE 0.9% 1,000 ML 125 ML IV (09:35)
--- NOTE | 2020-11-14 10:40 | CM.DANOTE ---
Patient is a 70 year old female who was admitted on 11/13/20 for Abd Pain. Pt has [facility] [facility] for insurance and her PCP is Karely Álvarez. EMR was reviewed. Per Surgeon, pt with partial SBO and currently NPO with SBFT today to determine if surgical intervention needed or conservative tx. SW met bedside with pt and explained role and pt confirms that she lives at home in [place] with her adult disabled Dtr Kylie who is mostly independent but functions at around age level 10. Pt's spouse was moved into [facility] due to increased dementia behaviors and prior to that they had managed him at home with Parkinson's for 15 years with private pay caregivers. Pt's Dtr/DPOA Toña lives locally and currently staying at pt's home to be with her sister Kylie and can provide assist at d/c. Pt denies any personal hx with HH or SNF but aware of these services through her . Pt quite emotional and tearful and admits to having a very tough year with not being able to visit at [facility] due to COVID precautions and pt has been having some financial stressors due to the cost of care for her . Pt very thankful for her friends and Dtrs support but still quite anxious and emotional. Pt would be appreciative of dietary consult to answer some of her food questions as would feel relieved having HH RN/PT in place at d/c but uncertain at this time if pt would be considered Homebound and qualify for HH. Pt does confirm that she has been established with a therapist that she meets with once a week and feels this has been very helpful and supportive. SW provided encouragement and information to pt which seemed to ease some of her worries and anxiety. Dtr Toña can provide transport home when stable for d/c. Plan: SW to follow closely after SBFT and dietary consult towards determining d/c planning needs and if pt remains safe for plan of d/c home via Dtr POV and r/o HH RN/PT. CAROLANN Anguiano Discharge Planning/Care Management CM Discharge Assessment Start: 11/14/20 10:38 Freq: Status: Active Protocol: Document 11/14/20 10:38 BF (Rec: 11/14/20 10:40 BF [id number]) Discharge Planning Assessment Assigned Foreign Agent Britney, MEDICAL CHEMIST DPOA/Assigned Designee Name Netpali Ding Contact Information [phone] Advance Directives? No Advance Directives on File No History Provided By Patient,Medical Record Has Patient been admitted in last 30 No days? Prior Living Arrangements House Household Members family Type of transporation used prior to Drives own vehicle admit Comment Lives at home with her disabled adult Dtr Kylie, with Parkinson's and dementia moved into [facility] last year, and Dtr Toña lives locally and assists. Independent with ADL's Yes Is patient alert and oriented? Yes Needs Assistance With Home Chores / Shopping Caregiver for Another Yes: Disabled Dtr lives at home with pt DME Already Rented / Owned Cane Patient/Family Preference Home with Home Health Comment Follow for progress to determine if HH needed, pt is agreeable to HH Barriers to Discharge No Discharge Plan Home with Home Health Transportation Arrangement Neptali Ding available to transport home at d/c Additional Comment Waiting to r/o HH prior to referral Whiteboard Updated in Patient Room with Yes name and ext. # of Foreign Agent Review Status In Process Please Provide Date Initial DC 11/14/20 Assessment Was Performed Next Review Type Continued Stay Review
[2020-11-14 11:20] VITALS: BP 166/83; PULSE 99; RESP 16; TEMP 37.1; O2SAT 97
[2020-11-14] MEDS: LORazepam 0.5 MG TABLET PO (11:38)
--- NOTE | 2020-11-14 14:45 | PC.NURSE ---
IV removed, intact, tolerated well. DC instructions given by Manisha MURCIA. Pt's [id number] left to get pt clothing, will return with clothing and will take pt home.
== END 2020-11-14 15:20 | disposition home or self-care (01) | DRG 390 ==
LOC: ED 21:55 → AC 22:01
PROVIDERS: Admitting Provider Surgery; Emergency Provider Emergency Medicine; PCP Internal Medicine; Referring Provider Emergency Medicine; Visit Provider Surgery
DX: K56.51 Intestinal adhesions [bands], with partial obstruction (principal); I10 Essential (primary) hypertension; E11.9 Type 2 diabetes mellitus without complications; Z79.84 Long term (current) use of oral hypoglycemic drugs; Z20.822 Contact with and (suspected) exposure to COVID-19; Z85.038 Personal history of other malignant neoplasm of large intestine
CPT/HCPCS: 36415; 74022; 74177; 74250; 80048; 80053; 81003; 81015; 82962; 83605; 83690; 83735; 84100; 85025; 85610; 85730; 87077; 87086; 87186; 87635; 93005; 96361; 96374; 96375; 96376; 99222; 99284; C9803; C9113; J1170; J1650; J3475; Q9967

== ENCOUNTER → 2022-12-04 13:23 | Outpatient (CLI) | payer OTHER, SELFPAY ==
[2020-11-13 22:59] VITALS: BMI 23.6
--- NOTE | 2022-12-04 13:24 | DI.US.S_ITS ---
PROCEDURE: US SOFT TISSUE HEAD AND NECK INDICATIONS: SWELLING IN FRONT OF LEFT EAR TECHNIQUE: Real-time scanning was performed of the neck region of interest, with image documentation. COMPARISON: None. FINDINGS: No drainable fluid collection or distinct mass in the region in front of the left ear. IMPRESSION: No acute sonographic abnormality identified. Continued clinical follow-up is recommended and reimaging could be obtained if there is persistent concern with ultrasound or cross-sectional CT or MRI. Dictated by: Aldo Tsang M.D. on 12/04/2022 at 14:19 Approved by: Aldo Tsang M.D. on 12/04/2022 at 14:20
== END ==
PROVIDERS: PCP Internal Medicine; Referring Provider Physician Assistant; Visit Provider Physician Assistant
DX: R22.0 Localized swelling, mass and lump, head (principal)
CPT/HCPCS: 76536

== ENCOUNTER → 2022-12-11 15:07 | Outpatient (CLI) | payer OTHER, SELFPAY ==
[2020-11-13 22:59] VITALS: BMI 23.6
--- NOTE | 2022-12-11 | DI.RAD.S_ITS ---
PROCEDURE: XR TMJ LT INDICATIONS: LT TMJ PAIN TECHNIQUE: 5 view(s) of the temporomandibular joints acquired. COMPARISON: None. FINDINGS: Bones: Suboptimal evaluation of the temporomandibular joints bilaterally. No fractures or dislocations. No suspicious bony lesions. Soft tissues: No suspicious soft tissue calcifications. IMPRESSION: Limited evaluation of the temporomandibular joints. MRI is recommended for further assessment. Dictated by: Eyal Dickerson M.D. on 12/11/2022 at 16:13 Transcribed by: NOHEMI on 12/11/2022 at 16:14 Approved by: Eyal Dickerson M.D. on 12/11/2022 at 16:20
== END ==
PROVIDERS: PCP Internal Medicine; Referring Provider Internal Medicine; Visit Provider Internal Medicine
DX: M26.622 Arthralgia of left temporomandibular joint (principal)
CPT/HCPCS: 70330

== ENCOUNTER → 2023-01-05 13:48 | Outpatient (ROUT) | payer OTHER, SELFPAY ==
[2020-11-13 22:59] VITALS: BMI 23.6
[2023-01-05 16:31] LABS: Alanine Aminotransferase 24 IU/L (<35); Albumin 3.7 g/dL (3.5-5.0); Albumin Globulin Ratio 1.4 (1.0-2.8); Alkaline Phosphatase 68 U/L (38-126); Aspartate Aminotransferase 21 IU/L (14-36); BUN Creatinine Ratio 19.8 (6-22); Bilirubin Total 0.6 mg/dL (0.2-1.3); Blood Urea Nitrogen 20 mg/dL (7-17); Calcium 8.5 mg/dL (8.4-10.2); Carbon Dioxide 29 mmol/L (22-32); Chloride 98 mmol/L (98-107); Estimated Glomerular Filt Rate 59 mL/min (>60); Globulin 2.6 g/dL (1.7-4.1); Glucose 193 mg/dL (80-110); HEMOLYSIS < 15 (0-50); Potassium 4.3 mmol/L (3.4-5.1); Sodium 135 mmol/L (137-145); Total Protein 6.3 g/dL (6.3-8.2)
== END ==
PROVIDERS: PCP Internal Medicine; Visit Provider Registered Nurse
DX: N18.31 Chronic kidney disease, stage 3a (principal)
CPT/HCPCS: 80053

== ENCOUNTER 2023-03-02 14:20 | Observation (INO) | payer OTHER, SELFPAY ==
[2020-11-13 22:59] VITALS: BMI 23.6
[2023-03-02] VITALS (8 sets, daily range): BP systolic 166–194; BP diastolic 70–142; PULSE 98–117; RESP 12–18; TEMP 36.3–36.9; O2SAT 97–98; BMI 22.0
--- NOTE | 2023-03-02 14:32 | DI.CT.S_ITS ---
PROCEDURE: CT ANGIO HEAD AND NECK INDICATIONS: right leg and arm numbess TECHNIQUE: After the administration of intravenous contrast, 1 mm thick sections acquired from the aortic arch through the [place] of Lau. Post-contrast 4.5 mm thick sections then re-acquired from the foramen magnum to the vertex. MIP reformats of the arterial vasculature were utilized. For radiation dose reduction, the following was used: automated exposure control, adjustment of mA and/or kV according to patient size. COMPARISON: None. FINDINGS: Image quality: Excellent. HEAD CT ANGIOGRAPHY: Anterior circulation: Intracranial internal carotid arteries are normal in size and flow. The flow within the paired anterior cerebral arteries is normal and symmetric. The flow within the middle cerebral arteries is normal and symmetric. The anterior communicating artery is seen. No aneurysms are seen. Posterior circulation: Visualized portions of the vertebral arteries demonstrate normal caliber, and join to form a normal appearing basilar artery. Flow within the posterior cerebral arteries is normal and symmetric. No aneurysms are seen. Other: Small left parietal meningioma measures 1.1 cm associated with craniotomy and underlying old left parietal gliosis with encephalomalacia. NECK CT ANGIOGRAPHY: Carotid system: The great vessels demonstrate a conventional anatomy as they arise from the aortic arch. The origins of the common carotid arteries appear patent. The common carotid arteries demonstrate normal caliber and courses. The bifurcation regions are both widely patent. The internal carotid arteries demonstrate normal calibers and courses. Posterior circulation: The origins of the vertebral arteries both appear widely patent. The more superior extracranial portions of both vertebral arteries also demonstrate normal courses and calibers. They join to form a normal appearing basilar artery. Soft tissues: Visualized neck soft tissues demonstrate no suspicious abnormalities. Bones: Degenerative disc disease and arthropathy in the cervical spine results in reversal normal cervical lordosis as well as at least moderate central stenosis C4-5, C5-6 and C6-7 IMPRESSION: Unremarkable CT angio of the brain without large vessel occlusion, aneurysm or vascular malformation. Small left parietal meningioma 1.1 cm associated with craniotomy and underlying encephalomalacia/gliosis. Unremarkable CT angiogram neck without vascular stenosis. 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 Approved by: Ramon Brown M.D. on 03/02/2023 at 15:02
[2023-03-02 14:39] LABS: Add Manual Diff / Slide Review NO; Basophils Absolute Auto 0 /uL (0-100); Basophils Percent Auto 0.4 % (0-2); Eosinophils Absolute Auto 200 /uL (0-450); Eosinophils Percent Auto 1.6 % (2-4); Hematocrit 39.7 % (36-46); Hemoglobin 13.4 g/dL (12.0-16.0); Lymphocytes Absolute Auto 2100 /uL (1100-4500); Lymphocytes Percent Auto 20.2 % (25-40); Mean Corpuscular HGB Conc 33.9 % (30-36); Mean Corpuscular Hemoglobin 29.2 PG (26-34); Mean Corpuscular Volume 86.2 fL (80-100); Monocytes Absolute Auto 700 /uL (0-900); Monocytes Percent Auto 7.1 % (3-14); Neutrophils Absolute Auto 7300 /uL (1500-7000); Neutrophils Percent Auto 70.7 % (50-75); Platelet Count 223 X10^3/uL (150-400); Red Blood Cell Count 4.61 X10^6/uL (4.0-5.2); Red Cell Distribution Width 13.6 % (11.6-14.8); White Blood Cell Count 10.4 X10^3/uL (4.5-11.0)
[2023-03-02 14:41] LABS: Prothrombin Time 11.7 SECONDS (10.1-12.7)
--- NOTE | 2023-03-02 14:41 | DI.CT.S_ITS ---
PROCEDURE: CT STROKE INDICATIONS: word trouble finding TECHNIQUE: Noncontrast 4.5 mm thick angled axial sections acquired from the foramen magnum to the vertex, with coronal reformats. For radiation dose reduction, the following was used: automated exposure control, adjustment of mA and/or kV according to patient size. COMPARISON: [facility], MR, MR HEAD/BRAIN WO/W CON, 05/13/2019, 13:03. FINDINGS: Image quality: Excellent. CSF spaces: Basal cisterns are patent. No extra-axial fluid collections. Ventricles are normal in size and shape. Brain: No midline shift. No intracranial masses or hemorrhage. Encephalomalacia in the left parietal lobe. Periventricular hypodensity consistent with chronic microvascular ischemic change. Age-related parenchymal loss. Skull and face: Left lateral and vertex nithya holes. Calvarium and visualized facial bones are intact, without suspicious lesions. Sinuses: Visualized sinuses and mastoids are clear. IMPRESSION: No acute intracranial abnormality. Similar encephalomalacia in the left parietal lobe. Comment: Findings were discussed with Cindy Isidro at time of dictation. This study fulfills neurological imaging criteria for inclusion or exclusion of acute stroke therapies based on available published neurological imaging guidelines. Dictated by: Tejinder Delgado M.D. on 03/02/2023 at 15:02 Approved by: Tejinder Delgado M.D. on 03/02/2023 at 15:08
--- NOTE | 2023-03-02 14:42 | ED_ITS ---
HPI - Neuro Symptoms/Deficit General Chief Complaint: Neuro Symptoms/Deficit Stated Complaint: intermittent R arm numbness Time Seen by Provider: 03/02/23 14:28 Source: patient and EMS Mode of arrival: EMS History of Present Illness HPI Narrative: Patient is 72-year-old female history of diabetes essential hypertension, colon cancer presenting today with intermittent right arm and leg numbness which started around noon. She does have a history of stuttering she is stuttering now which is normal for her however she is having some word-finding difficulty which is new according to granddaughter at bedside. No chest pain or shortness of breath. It sounds like the arm numbness and tingling is off and on difficult to tell how long it is going for seconds to minutes or hours. On Anticoagulants: No Related Data Home Medications Medication Instructions Recorded Confirmed multivitamin 1 tab PO DAILY ##0 03/15/12 03/02/23 glyburide 2.5 mg tablet 2.5 mg PO DAILY 11/24/18 03/02/23 metformin 500 mg tablet 1,000 mg PO BID 11/24/18 03/02/23 ketoconazole 2 % topical cream 1 applic topical BID PRN Rash 03/02/23 03/02/23 levothyroxine 125 mcg tablet 125 mcg PO DAILY 03/02/23 03/02/23 lisinopril 20 mg tablet 20 mg PO DAILY 03/02/23 03/02/23 Allergies Allergy/AdvReac Type Severity Reaction Status Date / Time No Known Drug Allergies Allergy Unknown Verified 03/02/23 14:31 Review of Systems Review of Systems ROS Unobtainable: All systems reviewed & are unremarkable except as noted in HPI and below Hematologic/Lymphatic On Anticoagulants: No Patient History Medical History Diabetes Essential hypertension (02/13/16) History of malignant neoplasm of colon (02/13/16) History of malignant neoplasm of colon (04/06/17) History of malignant neoplasm of thyroid (12/04/14) History of meningioma of the brain (12/04/14) Type 2 diabetes mellitus without complication, without long-term current use of insulin (02/13/16) Surgical History History of colectomy Status post delivery Status post delivery Family History Brother Cancer Brother Age: 77 Diabetes mellitus Child Age: 52 Ovarian cancer Colon cancer Father Cancer Diabetes mellitus Hypertension Grandmother Cancer Mother Cancer Grandmother Diabetes mellitus Social History household members: family Smoking Status: Never smoker alcohol intake: never Smoking Status: Never smoker alcohol intake frequency: 0-2 drinks per day Substance Use Type: does not use Exam Initial Vital Signs Initial Vital Signs: Vital Signs Pulse Rate 117 H 03/02/23 14:31 Respiratory Rate 18 03/02/23 14:31 Blood Pressure 186/109 H 03/02/23 14:31 Pulse Oximetry 98 03/02/23 14:31 Oxygen Delivery Method Room Air 03/02/23 14:31 GENERAL: Alert 72-year-old female stuttering speech and in no acute distress. HEENT: Head atraumatic,EOMI, pupils reactive, face symmetric, moist mucous membranes CARDIOVASCULAR: Regular rate and rhythm without murmurs, rubs or gallops. RESPIRATORY: Breath sounds equal bilaterally, no wheezes rales or rhonchi. ABDOMEN: Soft, nontender. Normoactive bowel sounds all 4 quadrants. No guarding or rebound. EXTREMITIES: Normal range of motion, no clubbing or edema. Neurovascularly intact NEUROLOGICAL: Alert and oriented x1.Normal gait and speech. Cranial nerves II through XII grossly intact. [id number] is difficult, strength equal bilaterally, no dysarthria or aphasia, sensation in tact to soft touch bilaterally, no visual changes, no facial droop SKIN: Warm, dry, no laceration, no petechiae, no rashes or lesions. Scores NIH Stroke Scale Level of Conciousness: Alert, keenly responsive Ask month/age: Answers neither question correctly, aphasic, stuporous, coma Open/close eyes, close hand: Performs both tasks correctly Best gaze horizontal: Normal Visual khan: No visual loss Facial palsy: Normal symetrical movement Left arm drift: No drift for full 10 sec Right arm drift: No drift for full 10 sec Left leg drift: No drift for full 5 sec Right leg drift: No drift for full 5 sec Limb ataxia: Present in one limb Sensory on face/arms/legs: Normal, no sensory loss Best language: Mild to moderate, slurs some words Dysarthria: Mild to mod,some slurring Extinction or inattention: No abnormality Total NIH Stroke scale score: 5 Course Orders Ordered: ED Orders 03/02/23 14:22 Complete Blood Count AUTO DIFF Stat Comprehensive Metabolic Panel Stat Ethanol (ETOH) Stat PTT Partial Thromboplastin Kermit Stat Prothrombin Time INR Stat TSH [Thyroid Stimulating Hormone] Stat Troponin & CK Cardiac Panel Stat 03/02/23 14:29 EKG-12 Lead Stat 03/02/23 14:32 CT angio head and neck Stat 03/02/23 14:41 CT Stroke Stat 03/02/23 15:29 Urine Culture Stat Urine Drug Screen, Rapid Stat Urine Microscopic Stat Acetaminophen (Acetaminophen 325 Mg Tablet) 650 mg PO Q6H PRN PRN Reason: Fever/Mild Pain (1-3) Hydrocodone Bitart/Acetaminophen (Hydrocodone/Acet 5/325 Tablet) 1 tab PO Q4H PRN PRN Reason: Pain, Moderate (4-6) Calcium Carbonate (Calcium Carbonate 500 Mg Tab) 1,000 mg PO Q4HR PRN PRN Reason: Dyspepsia Hydromorphone HCl (Hydromorphone 0.5 Mg Inj) 0.5 mg IV Q2H PRN PRN Reason: Pain, Severe (7-10) Ketoconazole (Ketoconazole 2% Cream 15 Gm) 1 applic TOP BID PRN PRN Reason: Rash Levothyroxine Sodium (Levothyroxine 125 Mcg Tablet) 125 mcg PO DAILY@0600 [facility] Lisinopril (Lisinopril 20 Mg Tablet) 20 mg PO DAILY [facility] Lorazepam (Lorazepam 2 Mg/Ml Inj) 0.5 mg IV Q4HR PRN PRN Reason: Anxiety Lorazepam (Lorazepam 0.5 Mg Tablet) 0.5 mg PO Q4HR PRN PRN Reason: Anxiety Magnesium Hydroxide (Magnesium Hydroxide 30 Ml Udc) 30 ml PO DAILY PRN PRN Reason: Constipation Metformin HCl (Metformin Hcl 500 Mg Tablet) 1,000 mg PO BID [facility] Multivitamins (Multivitamin 1 Tablet) 1 tab PO DAILY [facility] Naloxone HCl (Naloxone 0.4 Mg/Ml Vial) 0.2 mg IV Q2MIN PRN PRN Reason: Opiate Reversal Ondansetron HCl (Ondansetron 4 Mg/2 Ml Inj) 4 mg IV Q6HR PRN PRN Reason: Nausea And Vomiting Pantoprazole Sodium (Pantoprazole Dr 20 Mg Tablet) 20 mg PO 0600 [facility] Discontinued Medications Acetaminophen (Acetaminophen 325 Mg Tablet) 975 mg PO NOW ONE Stop: 03/02/23 16:05 Last Admin: 03/02/23 17:06 Dose: 325 mg Documented By: JAVON Aspirin (Aspirin 81 Mg Chew Tab) 324 mg PO NOW ONE Stop: 03/02/23 16:30 Last Admin: 03/02/23 18:00 Dose: 324 mg Documented By: RITO Lisinopril (Lisinopril 20 Mg Tablet) 20 mg PO NOW ONE Stop: 03/02/23 16:31 Last Admin: 03/02/23 17:37 Dose: 20 mg Documented By: RITO Metoprolol Succinate (Metoprolol Er 25 Mg Tablet) 25 mg PO NOW ONE Stop: 03/02/23 19:18 Vital Signs Vital signs: Vital Signs - 8 hr 03/02/23 14:31 03/02/23 15:48 Pulse Rate 117 H 109 H Respiratory Rate 18 12 Blood Pressure 186/109 H 192/86 H Pulse Oximetry 98 98 Oxygen Delivery Method Room Air Room Air MDM - Neuro Symptoms/Deficit Lab Data 03/02/23 14:22 03/02/23 14:22 Labs: Lab Results 03/02/23 03/02/23 03/02/23 Range/Units 14:22 14:22 14:22 WBC 10.4 (4.5-11.0) X10^3/uL RBC 4.61 (4.0-5.2) X10^6/uL Hgb 13.4 (12.0-16.0) g/dL Hct 39.7 (36-46) % MCV 86.2 (80-100) fL MCH 29.2 (26-34) PG MCHC 33.9 (30-36) % RDW 13.6 (11.6-14.8) % Plt Count 223 (150-400) X10^3/uL Neut % (Auto) 70.7 (50-75) % Lymph % (Auto) 20.2 L (25-40) % Hayes % (Auto) 7.1 (3-14) % Eos % (Auto) 1.6 L (2-4) % Baso % (Auto) 0.4 (0-2) % Neut # (Auto) 7300 H (8203-9782) /uL Lymph # (Auto) 2100 (4566-6421) /uL Hayes # (Auto) 700 (0-900) /uL Eos # (Auto) 200 (0-450) /uL Baso # (Auto) 0 (0-100) /uL PT 11.7 (10.1-12.7) SECONDS INR 1.0 (0.9-1.3) APTT 32 (26-36) SECONDS Sodium 137 (137-145) mmol/L Potassium 5.1 (3.4-5.1) mmol/L Chloride 103 (98-107) mmol/L Carbon Dioxide 23 (22-32) mmol/L BUN 27 H (7-17) mg/dL Creatinine 1.13 H (0.52-1.04) mg/dL Estimated GFR 51 L (>60) mL/min BUN/Creatinine Ratio 23.9 H (6-22) Glucose 224 H (80-110) mg/dL Calcium 9.2 (8.4-10.2) mg/dL Total Bilirubin 0.4 (0.2-1.3) mg/dL AST 25 (14-36) IU/L ALT 30 (<35) IU/L Alkaline Phosphatase 63 (38-126) U/L Total Creatine Kinase 47 (30-135) U/L CK-MB (CK-2) TNP CK-MB (CK-2) Rel Index TNP Troponin I < 0.012 (0.01-0.034) ng/mL Total Protein 7.6 (6.3-8.2) g/dL Albumin 4.6 (3.5-5.0) g/dL Globulin 3.0 (1.7-4.1) g/dL Albumin/Globulin Ratio 1.5 (1.0-2.8) TSH (0.47-4.68) uIU/mL Urine RBC (0-5/HPF) Urine WBC (0-5/HPF) Ur Squamous Epith Cells (0-5/HPF) Urine Bacteria (None) Ur Culture Indicated? U Opiates 300ng/mL cut (Negative) Ur Oxycodone Screen (Negative) Urine Methadone Screen (Negative) Ur Barbiturates Screen (Negative) U Tricyclic Antidepress (Negative) Ur Phencyclidine Scrn (Negative) Ur Amphetamines Screen (Negative) U Methamphetamines Scrn (Negative) Ur MDMA Scrn (Ecstasy) (Negative) U Benzodiazepines Scrn (Negative) Urine Cocaine Screen (Negative) U Marijuana (THC) Screen (Negative) Ethyl Alcohol < 10 ( - 10) mg/dL 03/02/23 03/02/23 03/02/23 Range/Units 14:22 15:29 15:29 WBC (4.5-11.0) X10^3/uL RBC (4.0-5.2) X10^6/uL Hgb (12.0-16.0) g/dL Hct (36-46) % MCV (80-100) fL MCH (26-34) PG MCHC (30-36) % RDW (11.6-14.8) % Plt Count (150-400) X10^3/uL Neut % (Auto) (50-75) % Lymph % (Auto) (25-40) % Hayes % (Auto) (3-14) % Eos % (Auto) (2-4) % Baso % (Auto) (0-2) % Neut # (Auto) (1940-7285) /uL Lymph # (Auto) (0402-9089) /uL Hayes # (Auto) (0-900) /uL Eos # (Auto) (0-450) /uL Baso # (Auto) (0-100) /uL PT (10.1-12.7) SECONDS INR (0.9-1.3) APTT (26-36) SECONDS Sodium (137-145) mmol/L Potassium (3.4-5.1) mmol/L Chloride (98-107) mmol/L Carbon Dioxide (22-32) mmol/L BUN (7-17) mg/dL Creatinine (0.52-1.04) mg/dL Estimated GFR (>60) mL/min BUN/Creatinine Ratio (6-22) Glucose (80-110) mg/dL Calcium (8.4-10.2) mg/dL Total Bilirubin (0.2-1.3) mg/dL AST (14-36) IU/L ALT (<35) IU/L Alkaline Phosphatase (38-126) U/L Total Creatine Kinase (30-135) U/L CK-MB (CK-2) CK-MB (CK-2) Rel Index Troponin I (0.01-0.034) ng/mL Total Protein (6.3-8.2) g/dL Albumin (3.5-5.0) g/dL Globulin (1.7-4.1) g/dL Albumin/Globulin Ratio (1.0-2.8) TSH 0.052 L (0.47-4.68) uIU/mL Urine RBC None seen (0-5/HPF) Urine WBC 5-10/hpf H (0-5/HPF) Ur Squamous Epith Cells None seen (0-5/HPF) Urine Bacteria Occasional (0-1) (None) Ur Culture Indicated? Specimen cultured U Opiates 300ng/mL cut Negative (Negative) Ur Oxycodone Screen Negative (Negative) Urine Methadone Screen Negative (Negative) Ur Barbiturates Screen Negative (Negative) U Tricyclic Antidepress Negative (Negative) Ur Phencyclidine Scrn Negative (Negative) Ur Amphetamines Screen Negative (Negative) U Methamphetamines Scrn Negative (Negative) Ur MDMA Scrn (Ecstasy) Negative (Negative) U Benzodiazepines Scrn Negative (Negative) Urine Cocaine Screen Negative (Negative) U Marijuana (THC) Screen Negative (Negative) Ethyl Alcohol ( - 10) mg/dL Point of Care Testing Glucose POC 204 Urine Dip Bedside Urine Glucose Negative Bedside Urine Bilirubin - Negative Bedside Urine Ketone - Negative Urine Specific Juliaetta 1.010 Bedside Urine Occult Blood + Bedside Urine pH 6.0 Bedside Urine Protein - Negative Bedside Urine Urobilinogen - Negative Bedside Urine Nitrite - Negative Bedside Urine Leukocytes - Negative Esterase Imaging Data CT scan - head: Radiologist's Impression: PROCEDURE:? CT STROKE ? INDICATIONS:? word trouble finding ? TECHNIQUE:? Noncontrast 4.5 mm thick angled axial sections acquired from the foramen magnum to the vertex, with coronal reformats.? For radiation dose reduction, the following was used:? automated exposure control, adjustment of mA and/or kV according to patient size.? ? COMPARISON:? [facility], MR, MR HEAD/BRAIN WO/W CON, 05/13/2019, 13:03. ? FINDINGS:? Image quality:? Excellent.? ? CSF spaces:? Basal cisterns are patent.? No extra-axial fluid collections.? Ventricles are normal in size and shape.? ? Brain:? No midline shift.? No intracranial masses or hemorrhage.? Encephalomalacia in the left parietal lobe.? Periventricular hypodensity consistent with chronic m icrovascular ischemic change. Age-related parenchymal loss. ? Skull and face:? Left lateral and vertex nithya holes.? Calvarium and visualized facial bones are intact, without suspicious lesions.? ? Sinuses:? Visualized sinuses and mastoids are clear.? ? IMPRESSION:? No acute intracranial abnormality. ? Similar encephalomalacia in the left parietal lobe. ? Comment: Findings were discussed with Cindy Isidro at time of dictation. ? This study fulfills neurological imaging criteria for inclusion or exclusion of acute stroke therapies based on available published neurological imaging guidelines.? ? ? Dictated by: Tejinder Delgado M.D. on 03/02/2023 at 15:02 ? ? ECG Data Interpretation: EKG 1. Sinus rhythm rate 107 ME interval [address] changes no T-wave inversions similar to previous EKGs MDM Narrative Medical decision making narrative: Patient 72-year-old female presents today with history of stroke and intermittent right arm and leg numbness and stuttering. The stuttering is not old however she starts to have aphasia difficulty naming objects in the ED. difficult to really get a true NIH stroke scale secondary to inability to understand ataxia and directions. She is within the window of tPA but difficult to really tell what is old and new. Not a clear tPA candidate but within the window. Dr. Hughes stroke doctor at [facility] updated patient's symptoms test results video in undecided not a tPA candidate. But does recommend observation CV rule out with overnight observation and MRI. Patient actually improved her symptoms completely without stuttering able to follow commands for the exam however quickly reverted back to some aphasia and staggering. On CT patient has old area in the left side, difficult to tell if right-sided deficits are old new or exacerbated from this lesion. Head CT CT angio are negative. Blood work shows mild elevation in creatinine of 1.13- troponin no leukocytosis. Dr. Darden updated on patient's symptoms test results neuro recommendation Discharge Plan Departure Patient Disposition: Admitted as Observation Clinical Impression: Brain TIA Admit Date/Time: 03/02/23 16:57 Admit Provider: Shanita Darden
[2023-03-02 14:44] LABS: PTT Partial Thromboplastin Tim 32 SECONDS (26-36)
[2023-03-02 14:48] LABS: Alanine Aminotransferase 30 IU/L (<35); Albumin 4.6 g/dL (3.5-5.0); Albumin Globulin Ratio 1.5 (1.0-2.8); Alkaline Phosphatase 63 U/L (38-126); Aspartate Aminotransferase 25 IU/L (14-36); BUN Creatinine Ratio 23.9 (6-22); Bilirubin Total 0.4 mg/dL (0.2-1.3); Blood Urea Nitrogen 27 mg/dL (7-17); Calcium 9.2 mg/dL (8.4-10.2); Carbon Dioxide 23 mmol/L (22-32); Chloride 103 mmol/L (98-107); Creatine Kinase 47 U/L (30-135); Estimated Glomerular Filt Rate 51 mL/min (>60); Ethanol (ETOH) < 10 mg/dL; Glucose 224 mg/dL (80-110); HEMOLYSIS 24 (0-50); Potassium 5.1 mmol/L (3.4-5.1); Sodium 137 mmol/L (137-145); Total Protein 7.6 g/dL (6.3-8.2)
[2023-03-02 15:01] LABS: Troponin I < 0.012 ng/mL (0.01-0.034)
[2023-03-02 15:59] LABS: UR Morphine/Opiate cutoff 300 Negative (Negative); Ur Creatinine Normal (Normal); Ur Specific Gravity Normal (Normal); Urine Amphetamines Negative (Negative); Urine Barbiturates Negative (Negative); Urine Benzodiazepines Negative (Negative); Urine Cocaine Negative (Negative); Urine MDMA Negative (Negative); Urine Methadone Negative (Negative); Urine Methamphetamines Negative (Negative); Urine Oxycodone Negative (Negative); Urine Phencyclidine Negative (Negative); Urine Tetrahydrocannabinol Negative (Negative); Urine Tricyclic Antidepressant Negative (Negative); Urine pH Normal (Normal)
--- NOTE | 2023-03-02 16:12 | PC.NURSE ---
patient's interview with telestroke showed improvement of symptoms. weakness in arms and legs greatly improved. sensation improved from nurses NIH. After telestroke was over the patient complains of numbness in arm worsening and getting cold.
[2023-03-02 16:22] LABS: Bacteria Urine Occasional (0-1); Culture Indicated Urine Specimen Cultured; RBC Urine None Seen (0-5/HPF); Squamous Epithelial Cell Urine None Seen (0-5/HPF); WBC Urine 5-10/HPF (0-5/HPF)
[2023-03-02] MEDS: ACETAMINOPHEN 325 MG TABLET 975 MG PO (17:06)
--- NOTE | 2023-03-02 17:06 | PC.NURSE ---
patient was nauseated and could not take po meds
[2023-03-02 17:24] LABS: Thyroid Stimulating Hormone 0.052 uIU/mL (0.47-4.68)
[2023-03-02] MEDS: lisinopriL 20 MG TABLET PO (17:37)
[2023-03-02] MEDS: ASPIRIN 81 MG CHEW TAB 324 MG PO (18:00)
--- NOTE | 2023-03-02 18:49 | PC.NURSE ---
Pt arrived from ED at approximately 1700, A&Ox 2, difficult to assess as she has some word finding difficulty and expressive aphasia. SBP 180's, she c/o headache and n/v. MD notified. PERRLA, she denies facial numbness or R arm tingling. Noted speech is clear. Patient reports baseline R sided weaker than L. She is able to pass bedside swallow eval and have sips of water with meds. BG is 155. MD arrived to bedside this evening at 1820 and evaluates patient. Tele monitoring, Sinus tachycardia. Daughter at bedside supportive. Bed alarm, call light in reach and frequent rounding.
--- NOTE | 2023-03-02 19:01 | PM.HP.1 ---
History of Present Illness History of Present Illness Date Patient Seen: 03/02/23 Time Patient Seen: 19:01 Date of Onset of Symptoms: 03/02/23 Chief complaint: intermittent R arm numbness Narrative: This is a very pleasant 72-year-old female who under the care of JONATHAN Casillas. She is followed for type 2 diabetes, non insulin-dependent; hypertension, hypothyroidism, anxiety for which she is not treated, chronic kidney disease stage IIIA, diabetic neuropathy, history of colon cancer and ovarian cancer, and benign brain tumor, meningioma approximately 30 years ago had surgery for this. The patient presented to the ER today with her granddaughter who lives with her for complaints of sudden onset at approximately 12:30 p.m. of difficulty finding words and some numbness in her right arm. This seemed to improve by the time she had a tele conference with Neurology and they did not feel that she met criteria for thrombolytics. A CT angio was unremarkable other than evidence of very small meningioma where patient previously had had surgery for meningioma. She was admitted to the hospital upon the recommendation of [facility] neurology stroke team and admitted for further treatment and monitoring. The patient since she is been in the hospital has complained of a headache and nausea. She was recently given Zofran. The remainder of her workup was negative in the ER. Past medical history: 1. Hypothyroidism 2. Hypertension 3. Type 2 diabetes with mild peripheral neuropathy 4. History of ovarian cancer unclear type 5. History of colon cancer 6. Stage 3 chronic kidney disease 7. Anxiety, refuses treatment 8. Insomnia See med list Allergies no known drug allergies Past surgical history: Intracranial surgery for removal of a benign meningioma approximately 30 years ago. 2. Tonsillectomy 3. Cholecystectomy age 31 4. Colon resection in her 40s 5. Thyroid removal mid 80s 6. Brain tumor removal age 41 Family history: Her dad at age 84 from bone cancer and lung cancer and diabetes Mother at 39 from uterine cancer Brother at age 23 from brain cancer Another brother at 68 from complications diabetes Social history patient lives in and [place] with her disabled daughter and her 2 grandchildren Health related behavior: Patient has never been a smoker and does not use alcohol 12 point review of systems is remarkable for having COVID-19 illness about 2 months ago with mild symptoms and no residual No weight loss or weight gain Recently no bright red blood per rectum or black tarry stools. No neurologic symptoms. No headaches or fevers or nausea or vomiting no recent weight loss or weight gain. Patient was last seen in the office in September of this year [facility] Medical History Diabetes Essential hypertension (02/13/16) History of malignant neoplasm of colon (02/13/16) History of malignant neoplasm of colon (04/06/17) History of malignant neoplasm of thyroid (12/04/14) History of meningioma of the brain (12/04/14) Type 2 diabetes mellitus without complication, without long-term current use of insulin (02/13/16) Surgical History History of colectomy Status post delivery Status post delivery Family History Brother Cancer Brother Age: 77 Diabetes mellitus Child Age: 52 Ovarian cancer Colon cancer Father Cancer Diabetes mellitus Hypertension Grandmother Cancer Mother Cancer Grandmother Diabetes mellitus Social History household members: family Smoking Status: Never smoker alcohol intake: never Meds Home Medications and Allergies Home Medications Medication Instructions Recorded Confirmed Type multivitamin 1 tab PO DAILY ##0 03/15/12 03/02/23 History glyburide 2.5 mg tablet 2.5 mg PO DAILY 11/24/18 03/02/23 History metformin 500 mg tablet 1,000 mg PO BID 11/24/18 03/02/23 History ketoconazole 2 % topical cream 1 applic topical BID PRN Rash 03/02/23 03/02/23 History levothyroxine 125 mcg tablet 125 mcg PO DAILY 03/02/23 03/02/23 History lisinopril 20 mg tablet 20 mg PO DAILY 03/02/23 03/02/23 History Allergies Allergy/AdvReac Type Severity Reaction Status Date / Time No Known Drug Allergies Allergy Unknown Verified 03/02/23 14:31 Review of Systems Review of Systems Narrative: Twelve point review of systems is negative other than above Exam Vital Signs (past 8 hours): - 03/02/23 14:31 03/02/23 15:48 03/02/23 17:37 Temperature Pulse Rate 117 H 109 H 108 H Respiratory Rate 18 12 Blood Pressure 186/109 H 192/86 H 181/142 H Pulse Oximetry 98 98 Oxygen Delivery Method Room Air Room Air 03/02/23 17:00 Temperature 97.3 F L Pulse Rate 113 H Respiratory Rate 18 Blood Pressure 184/137 H Pulse Oximetry 97 Oxygen Delivery Method Oxygen Delivery Method Room Air Narrative Exam Narrative: Afebrile vital signs are stable Patient appears older than her stated age. Patient alert and oriented x3. Patient is a good historian. Patient did not have any difficulty finding words while I am talking to her Head is normocephalic atraumatic Eyes pupils equal round reactive to light. Extraocular movements intact Nares patent Oropharynx without erythema or exudate, halitosis, mucous membranes moist and pink and poor dentition Neck: Supple without adenopathy or thyromegaly Chest: Clear to auscultation without wheezes rhonchi or crackles Cor regular rate and rhythm without a murmur Abdomen: Positive bowel sounds, soft, nontender, nondistended, no hepatosplenomegaly Extremities no edema, dry skin diffusely with excoriation scabs and thickened nails that are dystrophic Neurologic exam is nonfocal. Cranial nerves 2-12 are grossly intact. Romberg is negative. Strength is 5/5 in all large muscle groups of upper and lower extremities. Patient is easily able to follow commands. Objective Labs 03/02/23 14:22 03/02/23 14:22 Labs: Laboratory Results - last 24 hr 03/02/23 03/02/23 03/02/23 14:22 14:22 14:22 WBC 10.4 RBC 4.61 Hgb 13.4 Hct 39.7 MCV 86.2 MCH 29.2 MCHC 33.9 RDW 13.6 Plt Count 223 Neut % (Auto) 70.7 Lymph % (Auto) 20.2 L Hardin % (Auto) 7.1 Eos % (Auto) 1.6 L Baso % (Auto) 0.4 Neut # (Auto) 7300 H Lymph # (Auto) 2100 Hardin # (Auto) 700 Eos # (Auto) 200 Baso # (Auto) 0 PT 11.7 INR 1.0 APTT 32 Sodium 137 Potassium 5.1 Chloride 103 Carbon Dioxide 23 BUN 27 H Creatinine 1.13 H Estimated GFR 51 L BUN/Creatinine Ratio 23.9 H Glucose 224 H Calcium 9.2 Total Bilirubin 0.4 AST 25 ALT 30 Alkaline Phosphatase 63 Total Creatine Kinase 47 CK-MB (CK-2) TNP CK-MB (CK-2) Rel Index TNP Troponin I < 0.012 Total Protein 7.6 Albumin 4.6 Globulin 3.0 Albumin/Globulin Ratio 1.5 TSH Urine RBC Urine WBC Ur Squamous Epith Cells Urine Bacteria Ur Culture Indicated? U Opiates 300ng/mL cut Ur Oxycodone Screen Urine Methadone Screen Ur Barbiturates Screen U Tricyclic Antidepress Ur Phencyclidine Scrn Ur Amphetamines Screen U Methamphetamines Scrn Ur MDMA Scrn (Ecstasy) U Benzodiazepines Scrn Urine Cocaine Screen U Marijuana (THC) Screen Ethyl Alcohol < 10 03/02/23 03/02/23 03/02/23 14:22 15:29 15:29 WBC RBC Hgb Hct MCV MCH MCHC RDW Plt Count Neut % (Auto) Lymph % (Auto) Hardin % (Auto) Eos % (Auto) Baso % (Auto) Neut # (Auto) Lymph # (Auto) Hardin # (Auto) Eos # (Auto) Baso # (Auto) PT INR APTT Sodium Potassium Chloride Carbon Dioxide BUN Creatinine Estimated GFR BUN/Creatinine Ratio Glucose Calcium Total Bilirubin AST ALT Alkaline Phosphatase Total Creatine Kinase CK-MB (CK-2) CK-MB (CK-2) Rel Index Troponin I Total Protein Albumin Globulin Albumin/Globulin Ratio TSH 0.052 L Urine RBC None seen Urine WBC 5-10/hpf H Ur Squamous Epith Cells None seen Urine Bacteria Occasional (0-1) Ur Culture Indicated? Specimen cultured U Opiates 300ng/mL cut Negative Ur Oxycodone Screen Negative Urine Methadone Screen Negative Ur Barbiturates Screen Negative U Tricyclic Antidepress Negative Ur Phencyclidine Scrn Negative Ur Amphetamines Screen Negative U Methamphetamines Scrn Negative Ur MDMA Scrn (Ecstasy) Negative U Benzodiazepines Scrn Negative Urine Cocaine Screen Negative U Marijuana (THC) Screen Negative Ethyl Alcohol Assessment & Plan Assessment & Plan narrative: 72-year-old female with history of hypertension, hypothyroidism and type 2 diabetes presents with neurologic symptoms concerning for possible TIA or CVA. CT of the head and CT a of head and neck are unrevealing other than previous meningioma that is small and residual from previous resection. Plan: Will admit to the hospital for further monitoring and treatment. Concern for possible cerebellar incident. We will keep her blood pressure at permissive high level. Will do echo in the morning. Will continue telemetry. Will do a MRI of her head in the morning. Will consult speech therapy, physical therapy, occupational therapy. Will treat with aspirin therapy. Assessment 2. Hypertension not well-controlled but patient with severe anxiety and white coat hypertension Plan: Will treat with lisinopril 20 mg daily. This are outpatient regimen. Will give a 1 time dose of metoprolol and consider adjusting this pending what her echo shows an how her blood pressures to while she is in the hospital. Assessment 3. Type 2 diabetes on oral medications. Will hold the sulfonylurea and continue the metformin and will do CBGS q.a.c. and q.h.s. and will give sliding scale insulin Assessment 4. Hypothyroidism Plan continue outpatient regimen Assessment 5. Nausea unclear etiology will continue treat with Zofran. Will do MRI of her head in the morning. Assessment 6. Currently with headache unclear etiology wonder if this is musculoskeletal are intracranial related to ongoing neurologic symptoms. We will do MRI in a.m.. CT was reassuring. Will treat with Tylenol and hydrocodone if needed. Will also treat with lorazepam. Assessment 7. 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 Plan: Will provide lorazepam. Patient has no history of problems with this Code status is full code for now. Time spent with patient was 75 minutes. This was in discussing with ER physician, nursing, reviewing her clinic chart and hospital chart and meeting with patient, formulating a plan and documentation Quality VTE Deep Vein Thrombosis/Pulmonary Embolism Present on Admission: No
[2023-03-02] MEDS: LORazepam 2 MG/ML INJ 0.5 MG IV (20:15)
[2023-03-02] MEDS: HYDROMORPHONE 0.5 MG INJ IV (20:15)
[2023-03-02] MEDS: METFORMIN HCL 500 MG TABLET 1000 MG PO (20:19)
[2023-03-02] MEDS: METOPROLOL ER 25 MG TABLET PO (20:19)
[2023-03-03] VITALS (8 sets, daily range): BP systolic 98–174; BP diastolic 45–89; PULSE 75–108; RESP 16–18; TEMP 36.2–37; O2SAT 96–99
[2023-03-03] MEDS: HYDROMORPHONE 0.5 MG INJ IV (02:17)
[2023-03-03] MEDS: LORazepam 2 MG/ML INJ 0.5 MG IV ×2 (02:18→09:04)
[2023-03-03] MEDS: LEVOTHYROXINE 125 MCG TABLET PO (06:11)
[2023-03-03] MEDS: PANTOPRAZOLE DR 20 MG TABLET PO (06:11)
--- NOTE | 2023-03-03 06:24 | DI.ECHO.S_ITS ---
[facility]---------+ [facility] +---------+ : : [address] : : : : [id number] : : : : Phone: [phone]+ Echocardiogram Report + + :Name: GILMA TRISTAN V Study Date: 03/03/2023 Height: 68 in : :[facility] ReadingLocation: Weight: 145 lb : : Gender: Female BSA: 1.8 m2 : :: 1950 Age: 72 yrs BP: 106/49 mmHg: :Reason For Study: TIA : :Ordering Physician: ILEANA, : :MORENO Performed By: Melinda Jacques : :Referring: MORENO TEJEDA : + + Interpretation Summary The ejection fraction is estimated to be 60-65%. Diastolic parameters suggest probable normal left ventricular diastolic function and normal filling pressures. The right ventricular systolic function is normal. The right ventricular systolic pressure is estimated to be at least 28 mmHg based on an estimated right atrial pressure of 3 mm Hg. There is no Doppler evidence for an interatrial shunt. The aortic valve is mildly calcified. There is no aortic valve stenosis. No significant valvular abnormality. Procedure: A two-dimensional transthoracic echocardiogram with color flow and Doppler was performed. The study quality was technically adequate. There is no prior echocardiogram noted for this patient. The patient was in sinus rhythm with heart rates between 72-85 bpm during the exam. Left Ventricle: The left ventricle is normal in size and wall thickness. The ejection fraction is estimated to be 60-65%. Diastolic parameters suggest probable normal left ventricular diastolic function and normal filling pressures. Right Ventricle: The right ventricle is not well visualized. The right ventricle is grossly normal size. The right ventricular systolic function is normal. Atria: The left atrial size is normal. Right atrial size is normal. There is no Doppler evidence for an interatrial shunt. Mitral Valve: There is mild mitral annular calcification. The mitral valve leaflets appear mildly thickened, but open well. There is trace mitral regurgitation. Aortic Valve: The aortic valve is not well visualized. The aortic valve is mildly calcified. There is no aortic valve stenosis. No aortic regurgitation is present. Tricuspid Valve: The tricuspid valve is normal in structure and function. There is mild tricuspid regurgitation. The right ventricular systolic pressure is estimated to be at least 28 mmHg based on an estimated right atrial pressure of 3 mm Hg. Pulmonic Valve: The pulmonic valve is not well visualized. Great Vessels: The aortic root is normal size. The dimensions of the ascending aorta are normal. The IVC is of normal diameter and collapses greater than 50% with a sniff. This suggests a low right atrial pressure of 3 mm Hg. Pericardium/ Pleura There is no pericardial effusion. There is no pleural effusion. MMode/2D Measurements & Calculations LVIDd: 3.5 cm LVOT diam: 2.1 cm LVIDs: 2.2 cm Ao root diam: 3.1 cm FS: 37.0 % asc Aorta Diam: 3.2 cm EPSS: 0.63 cm Ao Arch Diam (Prox Trans): 1.9 cm IVSd: 1.00 cm LVPWd: 0.85 cm LV hall. diameter/BSA (cm/m^2): 1.9 LV sys. diameter/BSA (cm/m^2): 1.2 LA A2 area: 21.5 cm2 RA long axis: 4.8 cm LA A4 area: 15.5 cm2 RA area: 15.0 cm2 LA length (vol): 4.9 cm RA vol: 40.1 ml LA vol: 57.2 ml RA : 22.5 ml/m2 LA vol index: 32.1 ml/m2 IVC diam: 1.7 cm Doppler Measurements & Calculations Ao V2 max: 115.4 cm/sec LVOT Max Jacky: 72.7 cm/sec Ao V2 mean: 85.7 cm/sec LV V1 max P.1 mmHg Ao max P.3 mmHg LV V1 VTI: 18.3 cm Ao mean P.3 mmHg MELODIE(I,D): 2.5 cm2 Ao V2 VTI: 27.1 cm MELODIE(V,D): 2.3 cm2 sev ratio: 0.68 MELODIE indexed to BSA (cm^2/m^2): 1.4 MV E max jacky: 82.4 cm/sec TR max jacky: 250.5 cm/sec MV A max jacky: 65.2 cm/sec TR max P.1 mmHg MV E/A: 1.3 PA V2 max: 59.1 cm/sec Med Peak E' Jacky: 5.7 cm/sec PA V2 mean: 40.3 cm/sec E/E' med: 14.6 PA mean P.75 mmHg Lat Peak E' Jacky: 7.9 cm/sec PA pr(Accel): 24.2 mmHg E/E' lat: 10.4 E/e' average: 12.5 MV dec time: 0.17 sec SV(LVOT): 66.5 ml Reading Physician:ZAIRE
[2023-03-03 06:39] LABS: Add Manual Diff / Slide Review NO; Basophils Absolute Auto 100 /uL (0-100); Basophils Percent Auto 0.8 % (0-2); Eosinophils Absolute Auto 0 /uL (0-450); Eosinophils Percent Auto 0.1 % (2-4); Hematocrit 36.8 % (36-46); Hemoglobin 12.7 g/dL (12.0-16.0); Lymphocytes Absolute Auto 1400 /uL (1100-4500); Lymphocytes Percent Auto 9.8 % (25-40); Mean Corpuscular HGB Conc 34.6 % (30-36); Mean Corpuscular Hemoglobin 29.3 PG (26-34); Mean Corpuscular Volume 84.7 fL (80-100); Monocytes Absolute Auto 900 /uL (0-900); Monocytes Percent Auto 6.4 % (3-14); Neutrophils Absolute Auto 12200 /uL (1500-7000); Neutrophils Percent Auto 82.9 % (50-75); Platelet Count 238 X10^3/uL (150-400); Red Blood Cell Count 4.35 X10^6/uL (4.0-5.2); Red Cell Distribution Width 13.5 % (11.6-14.8); White Blood Cell Count 14.7 X10^3/uL (4.5-11.0)
[2023-03-03 07:00] LABS: Alanine Aminotransferase 34 IU/L (<35); Albumin Globulin Ratio 1.5 (1.0-2.8); Alkaline Phosphatase 57 U/L (38-126); Aspartate Aminotransferase 25 IU/L (14-36); BUN Creatinine Ratio 23.7 (6-22); Bilirubin Total 0.6 mg/dL (0.2-1.3); Blood Urea Nitrogen 28 mg/dL (7-17); Calcium 8.6 mg/dL (8.4-10.2); Carbon Dioxide 25 mmol/L (22-32); Chloride 100 mmol/L (98-107); Estimated Glomerular Filt Rate 49 mL/min (>60); Globulin 2.7 g/dL (1.7-4.1); Glucose 217 mg/dL (80-110); HEMOLYSIS < 15 (0-50); Potassium 4.5 mmol/L (3.4-5.1); Sodium 133 mmol/L (137-145); Total Protein 6.7 g/dL (6.3-8.2)
[2023-03-03] MEDS: MULTIVITAMIN 1 TABLET 1 TAB PO (09:04)
[2023-03-03] MEDS: METFORMIN HCL 500 MG TABLET 1000 MG PO ×2 (09:04→20:53)
--- NOTE | 2023-03-03 09:55 | DI.MRI.S_ITS ---
PROCEDURE: MR HEAD/BRAIN WO/W CON INDICATIONS: weakness TECHNIQUE: Noncontrast axial T1 spin echo, axial T2 fast spin echo, sagittal and axial FLAIR, coronal T2 fast spin echo, axial gradient echo, axial diffusion and ADC through the brain. After the administration of contrast, axial and coronal and sagittal 3D VIBE or T1 spin echo with fat saturation through the brain. COMPARISON: [facility], , MR HEAD/BRAIN WO/W CON, 05/13/2019, 13:03. FINDINGS: Image quality: Excellent. CSF Spaces: Basal cisterns are patent. No extra-axial fluid collections. Ventricles are normal in size and shape. Brain: Encephalomalacia and gliosis noted in the left superior parietal lobule near the midline, unchanged from the prior. Associated focal dural thickening and nodular enhancement all remains entirely unchanged from prior exam 2019. Otherwise, diffusion sequence is unremarkable. There is a generalized atrophy and confluent white matter chronic ischemic change. No midline shift. Skull and face: Prior left parietal craniotomy Sinuses: Sinuses and mastoids appear clear. IMPRESSION: No change from the prior exam 2019. No evidence of recurrent or residual disease. Left parietal encephalomalacia and gliosis associated overlying nodular dural thickening and enhancement may reflect stable reactive dural thickening or small reactive meningioma, without change. Atrophy and confluent white matter chronic ischemic change without acute infarct or hemorrhage. Approved by: Ramon Brown M.D. on 03/03/2023 at 10:55
--- NOTE | 2023-03-03 10:42 | PT.IIE ---
Surgical History (Last Reviewed 03/02/23 @ 14:54 by Cindy Isidro DO) History of colectomy Status post delivery Status post delivery Medical History (Last Reviewed 03/02/23 @ 14:54 by Cindy Isidro DO) Diabetes Essential hypertension (02/13/16) History of malignant neoplasm of colon (02/13/16) History of malignant neoplasm of colon (04/06/17) History of malignant neoplasm of thyroid (12/04/14) History of meningioma of the brain (12/04/14) Type 2 diabetes mellitus without complication, without long-term current use of insulin (02/13/16) Physical Therapy Inpatient Evaluation/Re-Eval M1 PT/OT-IP Prior Functional Status Start: 03/03/23 12:42 Freq: NEEDED Status: Active Protocol: Document 03/03/23 10:42 AB (Rec: 03/03/23 13:01 AB [email or web address]) Medical Review Prior Functional Status Medical History Reviewed Yes Communication able to make needs known Mobility and Gait pt stated that she is modified independent with all mobilities and ambulation using SPC Social History Household Members family Living Arrangements House Number of Floors (Floors) Two Floors Number of Stairs To Enter/Railing? 6 steps B rails to enter the house has a stair/chair lift to get to 2nd level bedroom Home Environment Standard Height Toilet,High Toilet,Tub/Shower Home Equipment Straight Cane,Tub Transfer Bench,Grab Bars In Shower Additional Social History Comment pt has a toilet safety frame pt lives with her daughter, grand daughter and grandson who are all disabled per pt. pt stated that she assists her daughter with shower needs. pt stated that she is the one that provides her family's needs M2 PT-IP Current Condition Start: 03/03/23 12:42 Freq: NEEDED Status: Active Protocol: Document 03/03/23 10:42 AB (Rec: 03/03/23 13:01 AB [email or web address]) Physical Therapy Current Condition Current Condition Evaluation Date 03/03/23 Treatment Diagnosis r/o CVA; difficulty in walking Onset Date 03/02/23 M3 PT-IP Subjective Start: 03/03/23 12:42 Freq: NEEDED Status: Active Protocol: Document 03/03/23 10:42 AB (Rec: 03/03/23 13:01 AB [email or web address]) Subjective Physical Therapy Visit Type Type Initial Evaluation Visit Start Time 10:42 Visit Stop Time 11:16 Total Visit Minutes 34 Number of ENGINEERING WRITER Visits 0 Physical Therapy Visit Comments Patient Comments agreeable to do PT M4 PT-IP Mobility and Gait Start: 03/03/23 12:42 Freq: NEEDED Status: Active Protocol: Document 03/03/23 10:42 AB (Rec: 03/03/23 13:01 [email or web address]) PT-Bed Mobility Assessment Supine to Sit Supine to Sit Standby Assistance PT-Transfer Assessment Sit to and From Stand Sit to and from Stand Moderate Assistance,1 Person Assistance,Use of Upper Extremities Equipment Transfer Assistive Device Gait Belt,Front Wheeled Walker Orthotic/Prosthetic Devices or Brace: No Transfers Transfer Destination Chair Transfer Technique Stand Step Pivot Transfer Ability Level of Assist Moderate Assistance,Maximum Assistance,1 Person Assistance ,Use of Upper Extremities Comments Mobility Comments BP in supine: 132/54. completed supine to sit SBA. able to sit on EOB SBA. no c/ o dizziness. BP: 128/63 completed sit to stand mod A but requires max A for standing balance using FWW. pt presents with increase posterior lean. educated on COG and to correct position but pt continues to have retro lean requiring max A for stability. attempted to ambulate but pt only able to take 2 steps using FWW max A. pt demonstrates dragging of RLE but when asked to lift LE, able to march in place. pt requested to sit down. chair positioned behind pt. pt stated that it is difficulty to move RLE. call light and table placed within reach. BP after trransfers: 140/61 informed pt regarding acute rehab vs SNF recommendation at this time. Gait Assessment Comments Gait Comments attempted but pt only able to take 2 steps max A using FWW PT-Balance Assessment Sitting Balance and Reactions Static Sitting Balance Ability Good Dynamic Sitting Balance Ability Good Standing Balance and Reactions Static Standing Balance Ability Poor Dynamic Standing Balance Ability Poor Device Used FWW M5 PT-IP Objective Assessments Start: 03/03/23 12:42 Freq: NEEDED Status: Active Protocol: Document 03/03/23 10:42 AB (Rec: 03/03/23 13:01 AB [id number]) Orientation Orientation/Cognition Level of Alertness Alert Orientation Name,Place,Situation Language Function Ability No Deficits Noted Safety Awareness Decreased Safety Awareness Memory Description No Deficits Noted Gross Range of Motion Lower Extremity ROM Assessment Within Functional Limits Strength Comments Strength Comments LLE: 4/5 RLE: 4-/5 Muscle Tone Muscle Tone WNL Yes M6 PT-IP Treatment Start: 03/03/23 12:42 Freq: NEEDED Status: Active Protocol: Document 03/03/23 10:42 AB (Rec: 03/03/23 13:01 AB [email or web address]) Physical Therapy Treatment Education Education Provided Safety M7 PT-IP Assessment and Plan Start: 03/03/23 12:42 Freq: NEEDED Status: Active Protocol: Document 03/03/23 10:42 AB (Rec: 03/03/23 13:01 AB [email or web address]) PT Summary Assessment and Plan Potential Rehabilitation Potential Fair Status of Condition at Evaluation Evolving Summary Impairments Pain,ROM,Strength,Balance, Coordination,Sensation,Tone, Cognition,Bed Mobility, Transfers,Gait,Activity Tolerance Assessment Summary pt admitted to r/o CVA. pt currently requiring max A for transfers using FWW and unable to ambulate and was only able to take 2 steps using FWW max A. pt with difficulty moving RLE and has increase posterior LOB during standing. pt will require acute rehab vs SNF. will continue to assess progress. Goals Bed Mobility Goal Independent Transfer Goal Minimal Assistance,Front Wheeled Walker Gait Goal Minimal Assistance,Front Wheel Walker Gait Distance 50 Other Goals improve transfers and ambulation using FWW 200 ft SBA up/down 6 steps B rails SBA Days to Meet Goals 10 Frequency of Treatment Frequency Of Treatment Once a Day Treatment Plan Physical Therapy Treatment Plan Bed Mobility Training,Transfer Training,Gait Training, Therapeutic Exercise,Balance Retraining,Discharge Planning, Hot or Cold Pack,Neuromuscular Re-ed,Coordination Retraining ,Manual Therapy Precautions Other Precautions falls Recommendations To Nursing Amount of Assist Needed 1 Person Assist Discharge Recommendations PT Discharge Recommendations SNF vs Acute Rehab Transportation Needs at Discharge Wheelchair/Cabulance
[2023-03-03] MEDS: cefTRIAXone 1,000 MG in SODIUM CHLORIDE 0.9% 100 ML 200 MG IV (10:53)
--- NOTE | 2023-03-03 11:13 | SLP.IPNOTE ---
Addendum entered and electronically signed by Beck Glasgow 03/03/23 17:35: Spoke with Dr Santos re: clarification of order. Will f/u with pt in the morning to see if she is willing to try eating. MD in agreement. Original Note: Attempted to see pt. She was in bed napping, but agreed to see me. Pt speech was observed to be intelligible. Cognition was oriented to person pace and situation. When asked, pt reported that she has had no difficulty with swallowing iquids. She further stated that she has had no appetite nor desire to eat solids over he past 2 days. Pt declined full swallow evaluation. P/c to MD to discuss status. Awaiting return call.
--- NOTE | 2023-03-03 14:34 | CM.DANOTE ---
DCP: Patient is a 72yo F here following intermittent right arm numbness. PCP: Karely Álvarez Payer: [employer] Medicare Advantage and self pay BEAUTY CULTURIST reviewed EMR. BEAUTY CULTURIST team (MARY ELLEN and TOMY) entered room and introduced self and role. Patient was resting in her bed, appeared A/Ox4, and occasionally was forgetful with her words. Patient lives in [place] with her 52yo disabled daughter and her two grandchildren, 16 and 20 something. Patient reports her two grandchildren have a variety of MH struggles that impact their independence. Patient is the primary caregiver for her daughter, who patient reports functions at a level of a 10 or 11 year old. Patient reports there is no other intensive care unit nurse available for all of the members of the household at this time. Patient's spouse, Ryan, has dementia and Parkinson's and lives at [facility]. Patient reports using a cane at baseline for security but she doesn't use it consistently. Patient does not drive and the household receives meals on wheels/gets groceries delivered via [employer]. Patient utilizes cab services for other transportation needs. Due to patient's concerns with caring for family at home, patient is denying wanting to go to acute rehab or a SNF at this time. Patient would prefer services for nursing/PT/OT. Pt. has no preference in agencies. BEAUTY CULTURIST provided patient with senior resources booklet for information on hiring private caregivers. QUINTIN Villanueva reported the earliest available HH date was with [facility] for nursing on the . QUINTIN Villanueva will sent initial HH referral information. [facility] F2F completed and RN updated. Dr. Darden has not been here today. Anticipate d/c within the next 24hrs if patient remains stable. RN reports patient currently 1 person assist. Transportation home pending family availability. CAROLANN Garza Discharge Planning/Care Management CM Discharge Assessment Start: 03/03/23 13:54 Freq: Status: Active Protocol: Document 03/03/23 13:54 MARY ELLEN (Rec: 03/03/23 14:34 MARY ELLEN [id number]) Discharge Planning Assessment Assigned Scientific Informatics Analyst CAROLANN Garza DPOA/Assigned Designee Name Miley Reynaga (family) Contact Information unknown at this time. Advance Directives? No Advance Directives on File No History Provided By Patient,Medical Record Prior Living Arrangements House Household Members family Comment lives with disabled daughter and two grandchildren. 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 Type of transporation used prior to Relies on Others admit Comment Patient reports uses meals on wheels or cabs for transportation Independent with ADL's Yes Is patient alert and oriented? Yes Caregiver for Another Yes: daughter and two grandchildren Community Services used prior to Transportation admission: Comment Meals on wheels and cabs DME Already Rented / Owned Cane Patient/Family Preference Home with Home Health Discharge Plan Home with Home Health Transportation Arrangement Patient reports no one able to drive her home. potential cab voucher Referrals Initiated Home Health Additional Comment Waiting to r/o prior to referral If patient plan is home with home health Yes : Has signed face to face form been completed? Whiteboard Updated in Patient Room with Yes name and ext. # of Scientific Informatics Analyst Review Status In Process Next Review Type Continued Stay Review
--- NOTE | 2023-03-03 15:13 | CM.DPNOTE ---
Spoke to Thalia at [facility] and she will have team review information for services on Thursday, 03/06 or sooner. I relayed this information to Ibeth. Kay Fabian, QUINTIN Assist.
--- NOTE | 2023-03-03 15:45 | P.PN_ITS ---
Subjective Subjective Date Patient Seen: 03/03/23 Time Patient Seen: 15:45 Interval history: Patient had unremarkable night. She is feeling much better today. She is not having any further nausea or vomiting. She is not having a headache. She is not have any speech problems. All the symptoms she had yesterday of having dysmetria and proprioceptive issues and difficulty speaking have all resolved. Granddaughter gives me history that she had waxing and waning of these symptoms where it was more prominent with numbness and tingling down her right arm and d ifficulty finding words as well as saying the appropriate words and then it would get better and then it would recur over several hours. By the time I saw her this dissipated. Granddaughter wonders if it is related to mold that is in the house. Review of systems: No rhinorrhea. No headaches. No cough. No recent fevers or rashes No chest pain. No lightheadedness or dizziness No further vomiting Patient does not have much appetite. Patient feels she is lost her sense of taste for about 5 years so she does not eat much Exam Vital Signs (past 8 hours): - 03/03/23 08:00 03/03/23 09:05 03/03/23 12:00 Temperature 98 F 98.6 F Pulse Rate 80 80 76 Respiratory Rate 17 17 Blood Pressure 112/52 L 112/52 L 98/45 L Pulse Oximetry 96 96 Oxygen Flow Rate 0 Oxygen Delivery Method Room Air Oxygen Flow Rate 0 Narrative Exam Narrative: Afebrile vital signs are stable. Blood pressure was medicine was held this morning due to low blood pressure 112 over 70s. Patient received metoprolol 25 mg last night I suspect that this is the reason. Patient is bright and smiling and alert and oriented x3. She is much able to converse better than she was yesterday. HEENT is unremarkable Neck: Supple without adenopathy or bruit or thyromegaly Chest: Clear to auscultation Cor: Regular rate and rhythm without murmur Abdomen positive bowel sounds, soft, nontender, nondistended Extremities: No edema, pulses intact Neurologic exam is nonfocal although patient per physical therapy report had some gait ataxia. But no focal neurologic deficit by my exam Objective Labs 03/03/23 06:17 03/03/23 06:17 Labs: Laboratory Results - last 24 hr 03/02/23 03/02/23 03/02/23 14:22 15:29 15:29 WBC RBC Hgb Hct MCV MCH MCHC RDW Plt Count Neut % (Auto) Lymph % (Auto) [place] % (Auto) Eos % (Auto) Baso % (Auto) Neut # (Auto) Lymph # (Auto) [place] # (Auto) Eos # (Auto) Baso # (Auto) Sodium Potassium Chloride Carbon Dioxide BUN Creatinine Estimated GFR BUN/Creatinine Ratio Glucose Calcium Total Bilirubin AST ALT Alkaline Phosphatase Total Protein Albumin Globulin Albumin/Globulin Ratio TSH 0.052 L Urine RBC None seen Urine WBC 5-10/hpf H Ur Squamous Epith Cells None seen Urine Bacteria Occasional (0-1) Ur Culture Indicated? Specimen cultured U Opiates 300ng/mL cut Negative Ur Oxycodone Screen Negative Urine Methadone Screen Negative Ur Barbiturates Screen Negative U Tricyclic Antidepress Negative Ur Phencyclidine Scrn Negative Ur Amphetamines Screen Negative U Methamphetamines Scrn Negative Ur MDMA Scrn (Ecstasy) Negative U Benzodiazepines Scrn Negative Urine Cocaine Screen Negative U Marijuana (THC) Screen Negative 03/03/23 03/03/23 06:17 06:17 WBC 14.7 H RBC 4.35 Hgb 12.7 Hct 36.8 MCV 84.7 MCH 29.3 MCHC 34.6 RDW 13.5 Plt Count 238 Neut % (Auto) 82.9 H Lymph % (Auto) 9.8 L [place] % (Auto) 6.4 Eos % (Auto) 0.1 L Baso % (Auto) 0.8 Neut # (Auto) 50554 H Lymph # (Auto) 1400 [place] # (Auto) 900 Eos # (Auto) 0 Baso # (Auto) 100 Sodium 133 L Potassium 4.5 Chloride 100 Carbon Dioxide 25 BUN 28 H Creatinine 1.18 H Estimated GFR 49 L BUN/Creatinine Ratio 23.7 H Glucose 217 H Calcium 8.6 Total Bilirubin 0.6 AST 25 ALT 34 Alkaline Phosphatase 57 Total Protein 6.7 Albumin 4.0 Globulin 2.7 Albumin/Globulin Ratio 1.5 TSH Urine RBC Urine WBC Ur Squamous Epith Cells Urine Bacteria Ur Culture Indicated? U Opiates 300ng/mL cut Ur Oxycodone Screen Urine Methadone Screen Ur Barbiturates Screen U Tricyclic Antidepress Ur Phencyclidine Scrn Ur Amphetamines Screen U Methamphetamines Scrn Ur MDMA Scrn (Ecstasy) U Benzodiazepines Scrn Urine Cocaine Screen U Marijuana (THC) Screen [facility] Medical History Diabetes Essential hypertension (02/13/16) History of malignant neoplasm of colon (02/13/16) History of malignant neoplasm of colon (04/06/17) History of malignant neoplasm of thyroid (12/04/14) History of meningioma of the brain (12/04/14) Type 2 diabetes mellitus without complication, without long-term current use of insulin (02/13/16) Surgical History History of colectomy Status post delivery Status post delivery Family History Brother Cancer Brother Age: 77 Diabetes mellitus Child Age: 52 Ovarian cancer Colon cancer Father Cancer Diabetes mellitus Hypertension Grandmother Cancer Mother Cancer Grandmother Diabetes mellitus Social History household members: family Smoking Status: Never smoker alcohol intake: never Assessment & Plan Assessment & Plan narrative: 72-year-old female admitted for suspected TIA Assessment 1. Possible TIA with some what difficult to discern symptoms though markedly improved today. She was treated with aspirin and blood pressure was treated. She was given a dose of metoprolol last night in her blood pressures been low and in fact we held her lisinopril today. We will continue with a spirin. Her CT angio of head and neck were unremarkable. Her MRI today showed no changes from 2019. She has dural scar and residual meningioma from previous surgery but no acute infarct or subacute infarct or tumor or change. Her echo showed no clot or significant abnormality. She is doing much better. She will continue with physical therapy and occupational therapy. We will continue with aspirin daily. We will continue to monitor her blood pressure. Will possibly go home tomorrow with home health. Plan will be to get her home. Assessment 2. Urine culture positive with 30,000 colony Gram-negative bacilli and patient also with leukocytosis Plan: Will go ahead and treat with ceftriaxone 1 g Q 24 hours. Patient's symptoms are improving fairly quickly so I am not sure that this is the cause of all her symptoms but certainly may be contributing. Patient is taking better p.o. intake will so we will stop her IV fluids Assessment 3. Severe anxiety improved with lorazepam Plan: Continue as needed lorazepam Assessment 4. Type 2 diabetes stable on metformin. We held her glyburide. Will continue with sliding scale insulin. If this is going well then we will restart tomorrow Assessment 5. Hypothyroidism Plan: Continue outpatient thyroid medication Assessment 6. Blood pressure fluctuation I think this is probably medicine related. Her echo if pump function is normal. We will continue to follow 60 minutes spent with patient meeting with her and her family and reviewing with nursing and reviewing her chart and formulating plan and documentation Quality VTE Deep Vein Thrombosis/Pulmonary Embolism Present on Admission: No
--- NOTE | 2023-03-03 16:10 | OT.IP.EVAL ---
Past Medical History (Last Reviewed 03/02/23 @ 14:54 by Cindy Isidro DO) Diabetes Essential hypertension (02/13/16) History of malignant neoplasm of colon (02/13/16) History of malignant neoplasm of colon (04/06/17) History of malignant neoplasm of thyroid (12/04/14) History of meningioma of the brain (12/04/14) Type 2 diabetes mellitus without complication, without long-term current use of insulin (02/13/16) Surgical History (Last Reviewed 03/02/23 @ 14:54 by Cindy Isidro DO) History of colectomy Status post delivery Status post delivery Occupational Therapy Inpatient Evaluation/Re-Eval M1 PT/OT-IP Prior Functional Status Start: 03/03/23 12:42 Freq: NEEDED Status: Active Protocol: Document 03/03/23 10:42 AB (Rec: 03/03/23 13:01 AB [id number]) Medical Review Prior Functional Status Medical History Reviewed Yes Communication able to make needs known Mobility and Gait pt stated that she is modified independent with all mobilities and ambulation using SPC Social History Household Members family Living Arrangements House Number of Floors (Floors) Two Floors Number of Stairs To Enter/Railing? 6 steps B rails to enter the house has a stair/chair lift to get to 2nd level bedroom Home Environment Standard Height Toilet,High Toilet,Tub/Shower Home Equipment Straight Cane,Tub Transfer Bench,Grab Bars In Shower Additional Social History Comment pt has a toilet safety frame pt lives with her daughter, grand daughter and grandson who are all disabled per pt. pt stated that she assists her daughter with shower needs. pt stated that she is the one that provides her family's needs M1 PT/OT-IP Prior Functional Status Start: 03/03/23 17:10 Freq: NEEDED Status: Active Protocol: Document 03/03/23 15:08 [facility] (Rec: 03/03/23 17:38 [facility] [id number]) Medical Review Prior Functional Status Medical History Reviewed Yes Communication able to make needs known Mobility and Gait pt stated that she is modified independent with all mobilities and ambulation using SPC Per pt's grand daughter pt tends to furniture cruise a lot in the house. Activities of Daily Living and IADL's independent for all ADL and IADL needs. Pt does not drive but takes care of her adult daughter who per CM note functions at 10-11 year old. Social History Household Members family Living Arrangements House Number of Floors (Floors) Two Floors Number of Stairs To Enter/Railing? 6 steps B rails to enter the house has a stair/chair lift to get to 2nd level bedroom Home Environment Standard Height Toilet,High Toilet,Tub/Shower Home Equipment Straight Cane,Tub Transfer Bench,Grab Bars In Shower Additional Social History Comment pt has a toilet safety frame pt lives with her daughter, grand daughter and grandson who are all disabled per pt. pt stated that she assists her daughter with shower needs. pt stated that she is the one that provides her family's needs Pt has Meals on Wheels, does simple cooking, cleaning, bills, and medications on her own. Pt admits to not eating much and told the doctor that has no sense of smell for the past 5 years. Pt's grand daughter also mentioned that their in mold in the pt's house. M2 OT-IP Current Condition Start: 03/03/23 17:10 Freq: Status: Active Protocol: Document 03/03/23 15:08 [facility] (Rec: 03/03/23 17:38 [facility] [id number]) Occupational Therapy Current Condition Current Condition Evaluation Date 03/03/23 Treatment Diagnosis UTI, possible TIA Diagnosis Onset Date 03/02/23 M3 OT- IP Subjective and Pain Start: 03/03/23 17:10 Freq: Status: Active Protocol: Document 03/03/23 15:08 [facility] (Rec: 03/03/23 17:38 [facility] [id number]) OT- Subjective Occupational Therapy Visit Type Type Initial Evaluation Visit Start Time 15:08 Visit Stop Time 16:10 Total Visit Minutes 62 Occupational Therapy Visit Comments Patient Comments Pt agreed to get up, pt's daughter and grand daughter present in the room. Patient/Caregiver Goals Pt wanting to go home as worried about who will be taking care of her adult daughter who she currently takes care of. Pt however open to going to rehab if authorized and that her family able to care for her daughter . OT Pain Assessment Pain When Pain Assessed At Rest Pain Present Pain Present Denied Pain M4 OT- IP ADL's Start: 03/03/23 17:10 Freq: Status: Active Protocol: Document 03/03/23 15:08 [facility] (Rec: 03/03/23 17:38 [facility] [id number]) OT [id number] Comments OT Self-Feeding Comments Not at meal time. OT ADL-Grooming General Evaluation Grooming Ability Independent Comments OT Grooming Comments Increased time for set-up but able to do on her own. OT ADL-Oral Care General Eval Oral Care Ability Independent OT ADL-Dressing General Eval Lower Body Dressing Ability Standby Assistance Comments OT Dressing Comments Pt able to beverly her socks while seated in the bed but having more difficulty with the right side and leans. OT ADL-Toileting Comments OT Toileting Comments Pt not having to use the toilet at this time. OT ADL-Bathing Comments OT Bathing Comments pt will benefit from assist due to her poor balance at this time. M5 OT- IP IADL's Start: 03/03/23 17:10 Freq: Status: Active Protocol: Document 03/03/23 15:08 [facility] (Rec: 03/03/23 17:38 [facility] [id number]) OT-Instrumental Activities of Daily Living Deficits IADL Deficits Identified Deficits Home Safety Awareness Awareness of Need for Assistance at Home Decreased Awareness Ability to Problem Solve Emergency Able to Problem Solve Situations Home Safety Comments Increased time to solve safety problems. Pt having difficulty with problem solving and memory at this time. However this may be affected by her UTI and from her possible TIA. At this time pt would benefit from assist with ADL,IADL, and mobility needs. M6 OT- IP Functional Cognition Start: 03/03/23 17:10 Freq: Status: Active Protocol: Document 03/03/23 15:08 [facility] (Rec: 03/03/23 17:38 [facility] [id number]) Cognitive Factors Limiting Selfcare Function Cognitive Ability Level of Alertness Alert Patient Orientation Name,Age,Birthday,Month,Date, Year,Day of Week,Place, Situation Attention Span Ability Capable of Focused Attention, Capable of Sustained Attention Ability to Follow Commands Able to Follow One Step Commands Memory Description Short Term Impaired,Working Impaired Safety Awareness Underestimates Need for Assistance Problem Solving Ability Unable to Identify Errors, Needs Assist to Identify Solutions Cognitive Tests SLUMS Pt scored 20/30 which implies possible dementia, however pt currently has a UTI which maybe affecting her score. Pt while doing math questions insists that there is a 3 dollar bill. Pt able to recall 1/5 objects after time passed , not able to draw the hands on the clock correctly when time given , and able to answer 2/4 questions right after paragraph read. It would be beneficial to reassess her cognition when her UTI clears. Pt's grand daughter admits that she is not at her baseline cognitively. Cognitive Comments Cognitive Assessment Comments Pt is insistent that she is well and wanting to go home. Able to point out to pt that currently she is needing use of a FWW and too unsteady with her cane which she used prior . Afterwards , pt is open to consider possibly option of going to rehab prior to going home. OT- Vision and Hearing OT- Hearing Assessment OT- Hearing Assessment WFL OT- Vision Assessment Visual Acuity Glasses All The Time Visual Attentiveness WFL Occular Pursuits WFL Visual Convergence WFL Visual Joseph WFL M7 OT- IP Mobility and Balance Start: 03/03/23 17:10 Freq: Status: Active Protocol: Document 03/03/23 15:08 [facility] (Rec: 03/03/23 17:38 [facility] [id number]) OT- Bed Mobility Assessment Supine to Sit Supine to Sit Assist Standby Assistance Sit to Supine Sit to Supine Assist Standby Assistance OT-Transfer Assessment Sit to and From Stand Sit to and from Stand Minimal Assistance,Moderate Assistance Transfers Transfer Ability Minimal Assistance,Moderate Assistance Technique Transfer Destination Bed Transfer Technique Stand Step Pivot Devices Transfer Assistive Devices Gait Belt,Front Wheeled Walker Comments Mobility Comments Pt initially trying to stand with SPC, and leaning on the back of her heels and using the back of her legs to push on the bed to stand. Use of FWW and pt needing assist to guide the FWW , cues to keep her feet apart , and assist for balance. OT- Balance Assessment Sitting Balance and Reactions Static Sitting Balance Ability Good Dynamic Sitting Balance Ability Fair Standing Balance and Reactions Static Standing Balance Ability Poor Dynamic Standing Balance Ability Poor M8 OT- IP Objective Assessments Start: 03/03/23 17:10 Freq: Status: Active Protocol: Document 03/03/23 15:08 [facility] (Rec: 03/03/23 17:38 [facility] [id number]) OT Gross Range of Motion Upper Extremity Range of Motion Assessment Within Functional Limits OT Strength Upper Extremity Strength Assessment Right Impaired Shoulder 4/5 Elbow 4+/5 OT- Coordination Assessment Upper Extremity Finger to Nose Test Left UE Impaired Comments Coordination Comments Intact for finger thumb coordination. Pt needing increase time for diadochokinesis initially. OT Sensation Assessment Comments Summary Comments Intact for light touch. M9 OT- IP Assessment and Plan Start: 03/03/23 17:10 Freq: Status: Active Protocol: Document 03/03/23 15:08 [facility] (Rec: 03/03/23 17:38 [facility] [id number]) OT Summary Assessment and Plan Potential Rehabilitation Potential Good Analytic Complexity at Evaluation Moderate Summary OT Impairments Strength,Balance,Coordination, Functional Cognition, Functional Mobility,Self- Feeding,Grooming,Dressing, Toileting,Bathing,Toilet Transfers,Shower Transfers, Activity Tolerance Progress Towards Goals Slow Progress due to Medical Issues,Slow Progress due to Activity Tolerance,Slow Progress due to Cognition Assessment Summary Pt MOD complexity and main barriers are decreased balance , activity tolerance, difficulty with functional cognition- however may be due to her UTI- pt scored 20/30 which implies possible dementia. To reassess as pt clears from UTI. Pt's grand daughter feels that she is not at her baseline cognitively but 90% for her mobility needs as pt tends to furniture cruise at home. Pt would greatly benefit from skilled rehab prior to going home or pending caregiver training home with 13/04 assist and home health. Prior pt is the primary caregiver for her adult daughter. Goals Self-Feeding Goal Independent Grooming Goal Independent Dressing Goal Independent Toileting Goal Independent Bathing Goal Independent Toilet Transfer Goal Independent Shower Transfer Goal Independent Days to Meet Goals 15 Frequency of Treatment Frequency Of Treatment Once a Day Treatment Plan OT Treatment Plan ADL Training,Functional Cognition Training,Functional Mobility,Patient/Family Education,Discharge Planning Discharge Recommendations OT Discharge Recommendations SNF Rehab,Home vs SNF Other Discharge Recommendations pending caregiver training- assist and home health Home Equipment Needs FWW Transportation Needs at Discharge Private Vehicle,Wheelchair/ Cabulance
[2023-03-03] MEDS: SODIUM CHLORIDE 0.9% FLUSH 10 ML IV (20:53)
--- NOTE | 2023-03-03 23:38 | PC.NURSE ---
Patient is alert and oriented except thought month was January and did not know day of month; NIH = 1. Breath sounds CTA with RA sat of 98%. HRR w/telemetry reading of SR. BT present and is passing flatus. Denied dysuria, frequency or urgency with urination. Is able to turn self and needs to have 1 assist + walker when out of bed as is unsteady on feet. Refused SCD's so reminded to ankle wave. Denies pain. Fall risk score is high and bed alarm is activated.
[2023-03-04 04:00] VITALS: BP 121/61; PULSE 79; RESP 18; TEMP 36.6; O2SAT 96
[2023-03-04] MEDS: LEVOTHYROXINE 125 MCG TABLET PO (05:29)
[2023-03-04] MEDS: PANTOPRAZOLE DR 20 MG TABLET PO (05:29)
[2023-03-04] MEDS: SODIUM CHLORIDE 0.9% FLUSH 10 ML IV ×2 (05:30→09:12)
[2023-03-04] MEDS: cefTRIAXone 1,000 MG in SODIUM CHLORIDE 0.9% 100 ML 200 MG IV (05:30)
[2023-03-04 06:42] LABS: Add Manual Diff / Slide Review NO; Basophils Absolute Auto 100 /uL (0-100); Basophils Percent Auto 0.8 % (0-2); Eosinophils Absolute Auto 200 /uL (0-450); Eosinophils Percent Auto 1.8 % (2-4); Hematocrit 33.5 % (36-46); Hemoglobin 11.8 g/dL (12.0-16.0); Lymphocytes Absolute Auto 2600 /uL (1100-4500); Lymphocytes Percent Auto 25.8 % (25-40); Mean Corpuscular HGB Conc 35.2 % (30-36); Mean Corpuscular Hemoglobin 29.8 PG (26-34); Mean Corpuscular Volume 84.7 fL (80-100); Monocytes Absolute Auto 900 /uL (0-900); Monocytes Percent Auto 9.1 % (3-14); Neutrophils Absolute Auto 6300 /uL (1500-7000); Neutrophils Percent Auto 62.5 % (50-75); Platelet Count 205 X10^3/uL (150-400); Red Blood Cell Count 3.95 X10^6/uL (4.0-5.2); Red Cell Distribution Width 13.7 % (11.6-14.8); White Blood Cell Count 10.1 X10^3/uL (4.5-11.0)
[2023-03-04 06:49] LABS: BUN Creatinine Ratio 28.3 (6-22); Blood Urea Nitrogen 41 mg/dL (7-17); Calcium 8.4 mg/dL (8.4-10.2); Carbon Dioxide 26 mmol/L (22-32); Chloride 103 mmol/L (98-107); Estimated Glomerular Filt Rate 38 mL/min (>60); Glucose 126 mg/dL (80-110); HEMOLYSIS < 15 (0-50); Sodium 135 mmol/L (137-145)
[2023-03-04 08:00] VITALS: BP 123/67; PULSE 82; RESP 18; TEMP 36.7; O2SAT 97
--- NOTE | 2023-03-04 09:08 | P.DS_ITS ---
History of Present Illness History of Present Illness Date Patient Seen: 03/04/23 Time Patient Seen: 09:08 Date of Onset of Symptoms: 03/04/23 Chief complaint: intermittent R arm numbness Narrative: This is a very pleasant 72-year-old female who under the care of OJNATHAN Casillas.? She is followed for type 2 diabetes, non insulin-dependent; hypertension, hypothyroidism, anxiety for which she is not treated, chronic kidney disease stage IIIA, diabetic neuropathy, history of colon cancer and ovarian cancer, and benign brain tumor, meningioma approximately 30 years ago had surgery for this.? The patient presented to the ER today with her granddaughter who lives with her for complaints of sudden onset at approximately 12:30 p.m. of difficulty finding words and some numbness in her right arm.? This seemed to improve by the time she had a tele conference with Neurology and they did not feel that she met criteria for thrombolytics.? A CT angio was unremarkable other than evidence of very small meningioma where patient previously had had surgery for meningioma.? She was admitted to the hospital upon the recommendation of [facility] neurology stroke team and admitted for further treatment and monitoring.? The patient since she is been in the hospital has complained of a headache and nausea.? She was recently given Zofran.? The remainder of her workup was negative in the ER. Discharge Providers Provider Date of admission: 03/02/23 16:57 Discharge Date: 03/04/23 Primary care physician: JONATHAN Casillas Consults: 03/02/23 18:15 Consult to Physical Therapy Evaluate & Treat Comment: Physician Instructions: Evaluate and Treat 03/02/23 18:16 Consult to Occupational Therapy Evaluate & Treat Comment: Physician Instructions: Evaluate and treat 03/02/23 18:20 Consult to Speech Therapy Evaluate & Treat Comment: Physician Instructions: Evaluate and treat 03/04/23 09:03 Consult to Home Health Routine Comment: Reason For Exam: weakness tia Discharge provider: Praveen Álvarez MD Summary Hospital Course Discharge Diagnosis: TIA. Urinary tract infection Anxiety Weakness Type 2 diabetes Hypothyroidism Hospital Course: TIA. Patient presented and essentially resolved all symptoms. She was treated with aspirin her blood pressure was treated she was given a dose of metoprolol but overall she is been doing well. And her blood pressure was lower today. In her lisinopril had to be held held. Otherwise was followed for CT angio was normal her MRI was normal with no changes except for previous scarring residual meningioma. Echo showed normal tele showed no arrhythmia and overall she was doing well. 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 Does not want to do anything different. She feels like she is no different than she usually isn't wants to go home. Patient will be discharged home with follow-up continue aspirin. Urine culture. Patient was positive with slight leukocytosis was placed on antibiotics and did well. Will be sent home on Ceftin. Mild renal failure. Slightly worse. Will be followed as an outpatient. Flu push fluids and will proceed from there. Severe anxiety. Stable will continue usual lorazepam and follow Type 2 diabetes on metformin. Will follow. Any worsening in her renal failure she will need to go off of this. No other changes. Hypothyroidism stable. Blood pressure fluctuation. Will restart usual meds on way home. Exam Vital Signs (past 8 hours): - 03/04/23 04:00 Temperature 97.8 F Pulse Rate 79 Respiratory Rate 18 Blood Pressure 121/61 Pulse Oximetry 96 Oxygen Flow Rate 0 Oxygen Delivery Method Room Air Oxygen Flow Rate 0 Narrative Exam Narrative: Alert smiling female in no acute distress Lungs are clear heart regular rate and rhythm neurologic exam is nonfocal Objective Labs 03/04/23 06:15 03/04/23 06:15 Labs: Laboratory Results - last 24 hr 03/04/23 03/04/23 06:15 06:15 WBC 10.1 RBC 3.95 L Hgb 11.8 L Hct 33.5 L MCV 84.7 MCH 29.8 MCHC 35.2 RDW 13.7 Plt Count 205 Neut % (Auto) 62.5 D Lymph % (Auto) 25.8 Rapides % (Auto) 9.1 Eos % (Auto) 1.8 L Baso % (Auto) 0.8 Neut # (Auto) 6300 Lymph # (Auto) 2600 Rapides # (Auto) 900 Eos # (Auto) 200 Baso # (Auto) 100 Sodium 135 L Potassium 4.0 Chloride 103 Carbon Dioxide 26 BUN 41 H Creatinine 1.45 H Estimated GFR 38 L BUN/Creatinine Ratio 28.3 H Glucose 126 H Calcium 8.4 PFSH Medical History Diabetes Essential hypertension (02/13/16) History of malignant neoplasm of colon (02/13/16) History of malignant neoplasm of colon (04/06/17) History of malignant neoplasm of thyroid (12/04/14) History of meningioma of the brain (12/04/14) Type 2 diabetes mellitus without complication, without long-term current use of insulin (02/13/16) Surgical History History of colectomy Status post delivery Status post delivery Family History Brother Cancer Brother Age: 77 Diabetes mellitus Child Age: 52 Ovarian cancer Colon cancer Father Cancer Diabetes mellitus Hypertension Grandmother Cancer Mother Cancer Grandmother Diabetes mellitus Social History household members: family Smoking Status: Never smoker alcohol intake: never Discharge Assessment & Plan Assessment and Plan Assessment: Improved Plan of Treatment: Discharge home Discharge Plan Discharge Plan Patient Disposition: Home Discharge orders & Medications Prescriptions: New cefuroxime axetil 500 mg tablet 500 mg PO BID Qty: 14 0RF Continued multivitamin Tablet 1 tab PO DAILY Qty: 0 metformin 500 mg tablet 1,000 mg PO BID glyburide 2.5 mg tablet 2.5 mg PO DAILY Patient Comments: patient states supposed to take but ran out about a month ago lisinopril 20 mg tablet 20 mg PO DAILY Patient Comments: TAKE 1 TABLET BY MOUTH EVERY DAY levothyroxine 125 mcg tablet 125 mcg PO DAILY Patient Comments: TAKE 1 TABLET BY MOUTH EVERY DAY ketoconazole 2 % cream 1 applic TOPICAL BID PRN (Reason: Rash) Patient Comments: Apply 1 liberally to affected area twice a day for rash on groin and feet Follow up/Referrals: Karely Álvarez ARNP [Primary Care Provider] - 1 Week Discharge Health Status Multidrug resistant organism: No MDRO Diet/Activity/Treatments Diet: Diet as Tolerated Visit Report/Discharge Packet Stand Alone Forms: Patient Portal/API, Stroke Signs & Symptoms Discharge Data Primary Care Provider: Karely Álvarez Attending Provider: Shanita Darden Admit Date/Time: 03/02/23 16:57 Quality VTE Deep Vein Thrombosis/Pulmonary Embolism Present on Admission: No
[2023-03-04] MEDS: lisinopriL 20 MG TABLET PO (09:12)
[2023-03-04] MEDS: METFORMIN HCL 500 MG TABLET 1000 MG PO (09:12)
[2023-03-04] MEDS: MULTIVITAMIN 1 TABLET 1 TAB PO (09:12)
--- NOTE | 2023-03-04 09:39 | CM.DPC ---
DCP Continued: MICROFILM MACHINE OPERATOR reviewed EMR. MICROFILM MACHINE OPERATOR spoke with OT, that said they recommend SNF from their assessment yesterday and said patient was open to SNF. MICROFILM MACHINE OPERATOR entered room and reintroduced self. Patient began to cry when SNF was brought up, stating she wants to go home to be there for her disabled daughter and grandchildren. MICROFILM MACHINE OPERATOR spoke with Dr. Álvarez, who is recommending home health for patient at this time. MICROFILM MACHINE OPERATOR [facility]. [facility] said [facility] could [facility] her and start date is the . [facility] orders and d/c summary which were both obtained and faxed (see below). CM Neon Tube Bender Kay faxed over the orders and signed [facility] to [facility]. CM Neon Tube Bender Kay reports [facility] accepted patient and everything is in order to start services the . MICROFILM MACHINE OPERATOR team MARY ELLEN and [place] spoke with patient, patient daughter, and pt teacher assistant Joni as patient was ambulating with a walker down the hallway. Patient reported being ecstatic to go home. Therapy recommending walker for home use, patient currently uses cane. Family reports that they will obtain one this week from either friend or [employer]. Plan: Patient will d[facility]c home with [facility] today. Transport with daughter. CM team will continue to follow closely. CAROLANN Garza
--- NOTE | 2023-03-04 10:15 | OT.IP.TRT ---
Occupational Therapy Treatment Note M2 OT-IP Current Condition Start: 03/03/23 17:10 Freq: Status: Active Protocol: Document 03/03/23 15:08 [facility] (Rec: 03/03/23 17:38 [facility] [id number]) Occupational Therapy Current Condition Current Condition Evaluation Date 03/03/23 Treatment Diagnosis UTI, possible TIA Diagnosis Onset Date 03/02/23 M3 OT- IP Subjective and Pain Start: 03/03/23 17:10 Freq: Status: Active Protocol: Document 03/04/23 10:15 [facility] (Rec: 03/04/23 10:43 [facility] [id number]) OT- Subjective Occupational Therapy Visit Type Type Treatment Note Visit Start Time 10:15 Visit Stop Time 10:31 Total Visit Minutes 16 Occupational Therapy Visit Comments Patient Comments Pt agreed to get dressed and daughter in the room for caregiver training. Patient/Caregiver Goals To go home. OT Pain Assessment Pain When Pain Assessed At Rest Pain Present Pain Present Denied Pain M4 OT- IP ADL's Start: 03/03/23 17:10 Freq: Status: Active Protocol: Document 03/04/23 10:15 [facility] (Rec: 03/04/23 10:43 [facility] [id number]) OT ADL-Dressing General Eval Upper Body Dressing Ability Independent Lower Body Dressing Ability Standby Assistance Comments OT Dressing Comments SBA while pulling up standing to pull up her pants. OT ADL-Toileting Comments OT Toileting Comments Pt not having to go. OT ADL-Bathing Comments OT Bathing Comments Not performed. M6 OT- IP Functional Cognition Start: 03/03/23 17:10 Freq: Status: Active Protocol: Document 03/04/23 10:15 [facility] (Rec: 03/04/23 10:43 [facility] [id number]) Cognitive Factors Limiting Selfcare Function Cognitive Ability Level of Alertness Alert Patient Orientation Name,Age,Birthday,Month,Date, Year,Day of Week,Place, Situation Attention Span Ability Capable of Focused Attention, Capable of Sustained Attention Ability to Follow Commands Able to Follow One Step Commands Memory Description Short Term Impaired Cognitive Comments Cognitive Assessment Comments Pt not recalling what the doctor had talked to her yesterday of her possible diagnosis. Able to let pt's daughter to be aware to provide assist for bills/meds and at at least supervision at all times due to decreased balance. Pt needing vc to keep the FWW in front of her at all times. M7 OT- IP Mobility and Balance Start: 03/03/23 17:10 Freq: Status: Active Protocol: Document 03/04/23 10:15 [facility] (Rec: 03/04/23 10:43 [facility] [id number]) OT- Bed Mobility Assessment Supine to Sit Supine to Sit Assist Standby Assistance Sit to Supine Sit to Supine Assist Standby Assistance OT-Transfer Assessment Sit to and From Stand Sit to and from Stand Standby Assistance Technique Transfer Destination Bed,Chair Transfer Technique Stand Step Pivot Devices Transfer Assistive Devices Gait Belt,Straight Cane,Front Wheeled Walker Comments Mobility Comments Pt better balance but still tends to have weight on her heels when coming to stand. ABle to walk with SPC and close SBA to CGA. Pt much safer with FWW and SBA. Able to talk to SHEET ROCKER to try 4ww with pt. OT- Balance Assessment Sitting Balance and Reactions Static Sitting Balance Ability Normal Dynamic Sitting Balance Ability Good Standing Balance and Reactions Static Standing Balance Ability Fair Dynamic Standing Balance Ability Fair Comments Other Balance Tests/Deviations/Treatment Pt a bit better with her : balance but much safer with use of FWW at this time. Pt's family looking to garbage pick up worker a FWW for use at home. M9 OT- IP Assessment and Plan Start: 03/03/23 17:10 Freq: Status: Active Protocol: Document 03/04/23 10:15 [facility] (Rec: 03/04/23 10:43 [facility] [id number]) OT Summary Assessment and Plan Potential Rehabilitation Potential Good Analytic Complexity at Evaluation Moderate Summary OT Impairments Strength,Balance,Functional Cognition,Functional Mobility, Bathing,Shower Transfers Progress Towards Goals Progressing Toward Goals Assessment Summary Pt much improved today for mobility needs but still having some short term memory loss as not able to recall diagnosis of UTI that the doctor had told her about. However her thinking may also be affected by her current UTI . Pt to have family stay with her to assist for all needs as needed. Goals Bathing Goal Independent Shower Transfer Goal Independent Frequency of Treatment Frequency Of Treatment Once a Day Discharge Recommendations OT Discharge Recommendations Home with Assistance,Home Health Home Equipment Needs FWW Transportation Needs at Discharge Private Vehicle
--- NOTE | 2023-03-04 10:30 | PT.IPTN ---
Physical Therapy Treatment Note M2 PT-IP Current Condition Start: 03/03/23 12:42 Freq: NEEDED Status: Active Protocol: Document 03/03/23 10:42 AB (Rec: 03/03/23 13:01 AB [id number]) Physical Therapy Current Condition Current Condition Evaluation Date 03/03/23 Treatment Diagnosis r/o CVA; difficulty in walking Onset Date 03/02/23 M3 PT-IP Subjective Start: 03/03/23 12:42 Freq: NEEDED Status: Active Protocol: Document 03/04/23 10:43 TS (Rec: 03/04/23 10:56 TS [id number]) Subjective Physical Therapy Visit Type Type Treatment Note Visit Start Time 10:30 Visit Stop Time 10:41 Total Visit Minutes 9 Number of WORKFORCE STAFFING ADVISOR Visits 1 Physical Therapy Visit Comments Patient Comments Pt agreeable to PT. M4 PT-IP Mobility and Gait Start: 03/03/23 12:42 Freq: NEEDED Status: Active Protocol: Document 03/04/23 10:43 TS (Rec: 03/04/23 10:56 TS [id number]) PT-Transfer Assessment Sit to and From Stand Sit to and from Stand Standby Assistance,Use of Upper Extremities Equipment Transfer Assistive Device Gait Belt,Straight Cane,Front Wheeled Walker Orthotic/Prosthetic Devices or Brace: No Comments Mobility Comments Sit to stand from chair SBA with 4WW with flexed posture, no retroleaning. She ambulated in hallway ~200' SBA with 4WW ith normal pacing gait. She performed stairs x6 with BUE handrail assist step over step . She ambulated back to room and was left in bedside chair with family, preparing to d/c home. Gait Assessment Gait Gait Assistance Required: Standby Assistance Distance (Feet) 200 Assistive Devices Assistive Device 4 Wheeled Walker Orthotic/Prosthetic Devices or Brace: No Gait Deviations General Gait Pattern Within Normal Limits Comments Gait Comments See mobility comments. Stair Climbing Assessment Evaluation Level of Assist On Stairs Standby Assistance Devices Stair Climbing Assistive Devices Left Railing,Right Railing Technique/Endurance Stair Climbing Direction Ascend and Descend Stair Climbing Technique Step Over Step Number of Steps Climbed 6 Comments Stair Climbing Comments See mobility comments. PT-Balance Assessment Sitting Balance and Reactions Static Sitting Balance Ability Normal Dynamic Sitting Balance Ability Good Standing Balance and Reactions Static Standing Balance Ability Good Dynamic Standing Balance Ability Fair Device Used FWW M5 PT-IP Objective Assessments Start: 03/03/23 12:42 Freq: NEEDED Status: Active Protocol: Document 03/03/23 10:42 AB (Rec: 03/03/23 13:01 AB [id number]) Orientation Orientation/Cognition Level of Alertness Alert Orientation Name,Place,Situation Language Function Ability No Deficits Noted Safety Awareness Decreased Safety Awareness Memory Description No Deficits Noted Gross Range of Motion Lower Extremity ROM Assessment Within Functional Limits Strength Comments Strength Comments LLE: 4/5 RLE: 4-/5 Muscle Tone Muscle Tone WNL Yes M6 PT-IP Treatment Start: 03/03/23 12:42 Freq: NEEDED Status: Active Protocol: Document 03/04/23 10:43 TS (Rec: 03/04/23 10:56 TS [id number]) Physical Therapy Treatment Education Education Provided Safety M7 PT-IP Assessment and Plan Start: 03/03/23 12:42 Freq: NEEDED Status: Active Protocol: Document 03/04/23 10:43 TS (Rec: 03/04/23 10:56 TS [id number]) PT Summary Assessment and Plan Potential Rehabilitation Potential Good Summary Impairments Pain,ROM,Strength,Balance, Coordination,Sensation,Tone, Cognition,Bed Mobility, Transfers,Gait,Activity Tolerance Assessment Summary Pt is progressing well with her mobility this session. She is SBA for sit to stands and with gait in 4WW. She progressed her gait to ~200' in hallway with normal gait and pacing. She performed stairs x6 with BUE handrail assist, no buckling or LOB. PT is recommending return home with assist from family and HHPT. Goals Bed Mobility Goal Independent Transfer Goal Minimal Assistance,Front Wheeled Walker Gait Goal Minimal Assistance,Front Wheel Walker Gait Distance 50 Other Goals improve transfers and ambulation using FWW 200 ft SBA up/down 6 steps B rails SBA Days to Meet Goals 10 Frequency of Treatment Frequency Of Treatment Once a Day Treatment Plan Physical Therapy Treatment Plan Bed Mobility Training,Transfer Training,Gait Training, Therapeutic Exercise,Balance Retraining,Discharge Planning, Hot or Cold Pack,Neuromuscular Re-ed,Coordination Retraining ,Manual Therapy Precautions Other Precautions falls Recommendations To Nursing Amount of Assist Needed Standby Assistance Discharge Recommendations PT Discharge Recommendations Home with Assistance Transportation Needs at Discharge Private Vehicle
--- NOTE | 2023-03-04 11:13 | PC.NURSE ---
Day shift: Paperwork signed and all questions answered. Pt remains symptom free. Family member in room for teachings. Left unit at approx 1115 via WC. Family member is driving her home. script sent electronic to Pt's pharmacy. Pt has all personal belongings.
--- NOTE | 2023-03-04 11:25 | CM.DPNOTE ---
Called and spoke to Hillary at [facility] and she received everything they need to start services on pt. Kay Fabian, QUINTIN Driver License Examiner.
== END 2023-03-04 11:19 | disposition home or self-care (01) ==
LOC: ED 16:46 → AC 16:58
PROVIDERS: Admitting Provider Family Medicine; Emergency Provider Emergency Medicine; PCP Internal Medicine; Referring Provider Emergency Medicine; Visit Provider Family Medicine
DX: G45.9 Transient cerebral ischemic attack, unspecified (principal); R29.705 NIHSS score 5; N39.0 Urinary tract infection, site not specified; E11.42 Type 2 diabetes mellitus with diabetic polyneuropathy; I12.9 Hypertensive chronic kidney disease with stage 1 through stage 4 chronic kidney disease, or unspecified chronic kidney disease; N18.31 Chronic kidney disease, stage 3a; F41.9 Anxiety disorder, unspecified; E03.9 Hypothyroidism, unspecified; Z79.84 Long term (current) use of oral hypoglycemic drugs
CPT/HCPCS: 36415; 70450; 70496; 70498; 70553; 80048; 80053; 80305; 80320; 81003; 81015; 82550; 82962; 84443; 84484; 85025; 85610; 85730; 87077; 87086; 87186; 93005; 93306; 96365; 96366; 96375; 97116; 97162; 97166; 97530; 97535; 99284; G0378; A9579; J0696; J1170; J2060; Q9967

== ENCOUNTER 2024-04-25 03:22 | Emergency (ER) | payer OTHER, SELFPAY ==
[2024-04-25] VITALS (17 sets, daily range): BP systolic 155–213; BP diastolic 66–103; PULSE 91–139; RESP 14–31; TEMP 36.8; O2SAT 97–100; BMI 22.0; BMI 21.2
--- NOTE | 2024-04-25 03:31 | ED_ITS ---
HPI - Arrhythmia/Palpitations General Chief Complaint: Arrhythmia/Palpitations Stated Complaint: pounding heartbeat Time Seen by Provider: 04/25/24 03:24 History of Present Illness HPI narrative: 74-year-old female with history of TIA, diabetes, hypertension, CKD stage 3, history of colon and ovarian cancer, hx meningioma (30+ years ago) presents by private vehicle from home for the sensation that her heart is pounding. Patient states that she went to go to the bathroom and during this time her heart began to pound. She states that she has had heart pounding sensation in the past, but it usually resolves. This morning it did not resolve and she decided to present for evaluation. Patient noted to be tachycardic on arrival Related Data Home Medications Medication Instructions Recorded Confirmed multivitamin 1 tab PO DAILY ##0 03/15/12 03/02/23 glyburide 2.5 mg tablet 2.5 mg PO DAILY 11/24/18 03/02/23 metformin 500 mg tablet 1,000 mg PO BID 11/24/18 03/02/23 ketoconazole 2 % topical cream 1 applic topical BID PRN Rash 03/02/23 03/02/23 levothyroxine 125 mcg tablet 125 mcg PO DAILY 03/02/23 03/02/23 lisinopril 20 mg tablet 20 mg PO DAILY 03/02/23 03/02/23 Previous Rx's Medication Instructions Recorded cefuroxime axetil 500 mg tablet 500 mg PO BID #14 tabs 03/04/23 Allergies Allergy/AdvReac Type Severity Reaction Status Date / Time No Known Drug Allergies Allergy Unknown Verified 03/02/23 14:31 Patient History Medical History Diabetes History of malignant neoplasm of colon (04/06/17) Essential hypertension (02/13/16) History of malignant neoplasm of colon (02/13/16) Type 2 diabetes mellitus without complication, without long-term current use of insulin (02/13/16) History of meningioma of the brain (12/04/14) History of malignant neoplasm of thyroid (12/04/14) Surgical History History of colectomy Status post delivery Status post delivery Family History Brother Cancer Brother Age: 78 Diabetes mellitus Child Age: 53 Ovarian cancer Colon cancer Father Cancer Diabetes mellitus Hypertension Grandmother Cancer Mother Cancer Grandmother Diabetes mellitus Social History household members: family Smoking Status: Never smoker alcohol intake: never Smoking Status: Never smoker alcohol intake frequency: 0-2 drinks per day Substance Use Type: does not use Exam Initial Vital Signs Initial Vital Signs: Vital Signs Pulse Rate 124 H 04/25/24 03:33 Respiratory Rate 21 04/25/24 03:33 Pulse Oximetry 100 04/25/24 03:33 Const: Awake, alert, debilitated, frail Cardiac: Tachycardia, irregularly irregular RESP: unlabored, clear bilaterally, no wheezing GI: Soft, nontender, nondistended, no rebound, no guarding Skin: Warm, Dry, intact, no rashes Neuro: AO x3, CN II-XII grossly intact, moves all extremities Course Orders Ordered: ED Orders 04/25/24 03:32 Chest [XR chest 1V] Stat EKG-12 Lead Stat 04/25/24 03:35 BNP [NT-proBNP (BNP-Adult 18+)] Stat CBC Auto Diff [Complete Blood Count AUTO DIFF] Stat CMP [Comprehensive Metabolic Panel] Stat D Dimer Stat MAG [Magnesium] Stat PT [Prothrombin Time INR] Stat TSH [Thyroid Stimulating Hormone] Stat Trop I [Troponin I] Stat Discontinued Medications Diltiazem HCl (Diltiazem 25 Mg/5 Ml Sdv) 10 mg IV NOW ONE Stop: 04/25/24 03:49 Last Admin: 04/25/24 03:52 Dose: 10 mg Metoprolol Tartrate (Metoprolol Tartrate 5 Mg/5 Ml Inj) 5 mg IV Q5M NEGRITA Stop: 04/25/24 03:56 Last Admin: 04/25/24 03:48 Dose: Not Given Vital Signs Vital signs: Vital Signs - 8 hr 04/25/24 03:33 04/25/24 03:38 04/25/24 03:44 Temperature 98.3 F Pulse Rate 124 H 139 H Respiratory Rate 21 18 Blood Pressure 213/103 H 204/90 H Pulse Oximetry 100 98 Oxygen Delivery Method Room Air 04/25/24 03:44 04/25/24 03:45 04/25/24 03:45 Temperature Pulse Rate 118 H 117 H Respiratory Rate 28 H 19 Blood Pressure 195/86 H Pulse Oximetry 100 99 Oxygen Delivery Method Room Air 04/25/24 03:50 04/25/24 03:50 04/25/24 03:52 Temperature Pulse Rate 114 H 113 H Respiratory Rate 19 Blood Pressure 191/84 H 191/98 H Pulse Oximetry 100 Oxygen Delivery Method 04/25/24 03:55 04/25/24 03:55 04/25/24 04:00 Temperature Pulse Rate 106 H 104 H Respiratory Rate 17 31 H Blood Pressure 155/66 H Pulse Oximetry 100 100 Oxygen Delivery Method 04/25/24 04:00 04/25/24 04:05 04/25/24 04:05 Temperature Pulse Rate 99 H Respiratory Rate 17 Blood Pressure 163/73 H 163/76 H Pulse Oximetry 100 Oxygen Delivery Method 04/25/24 04:10 04/25/24 04:10 04/25/24 04:15 Temperature Pulse Rate 99 H 96 H Respiratory Rate 29 H 24 Blood Pressure 172/78 H Pulse Oximetry 100 99 Oxygen Delivery Method 04/25/24 04:15 04/25/24 04:20 04/25/24 04:20 Temperature Pulse Rate 95 H Respiratory Rate 17 Blood Pressure 165/75 H 177/77 H Pulse Oximetry 98 Oxygen Delivery Method 04/25/24 04:25 04/25/24 04:25 04/25/24 04:30 Temperature Pulse Rate 97 H 93 H Respiratory Rate 15 15 Blood Pressure 167/74 H Pulse Oximetry 97 98 Oxygen Delivery Method Room Air 04/25/24 04:30 04/25/24 04:35 04/25/24 04:35 Temperature Pulse Rate 94 H Respiratory Rate 14 Blood Pressure 161/74 H 160/74 H Pulse Oximetry 98 Oxygen Delivery Method 04/25/24 04:40 04/25/24 04:40 04/25/24 05:00 Temperature Pulse Rate 91 H 100 H Respiratory Rate 16 21 Blood Pressure 157/73 H Pulse Oximetry 99 98 Oxygen Delivery Method MDM - Arrhythmia/Palpitations Lab Data 04/25/24 03:35 04/25/24 03:35 Labs: Lab Results 04/25/24 Range/Units 03:35 WBC 9.7 (4.5-11.0) X10^3/uL RBC 4.24 (4.0-5.2) X10^6/uL Hgb 12.7 (12.0-16.0) g/dL Hct 37.5 (36-46) % MCV 88.4 (80-100) fL MCH 29.9 (26-34) PG MCHC 33.9 (30-36) % RDW 13.2 (11.6-14.8) % Plt Count 253 (150-400) X10^3/uL Neut % (Auto) 57.1 (50-75) % Lymph % (Auto) 29.0 (25-40) % Coffee % (Auto) 9.3 (3-14) % Eos % (Auto) 4.1 H (2-4) % Baso % (Auto) 0.5 (0-2) % Neut # (Auto) 5500 (7790-4337) /uL Lymph # (Auto) 2800 (4951-2611) /uL Coffee # (Auto) 900 (0-900) /uL Eos # (Auto) 400 (0-450) /uL Baso # (Auto) 0 (0-100) /uL PT 12.4 (9.4-12.5) SECONDS INR 1.1 (0.9-1.3) D-Dimer 868 H (<500) ng/ml Sodium 138 (137-145) mmol/L Potassium 3.3 L (3.4-5.1) mmol/L Chloride 106 (98-107) mmol/L Carbon Dioxide 22 (22-32) mmol/L BUN 23 H (7-17) mg/dL Creatinine 1.05 H (0.52-1.04) mg/dL Estimated GFR 55 L (>60) mL/min BUN/Creatinine Ratio 21.9 (6-22) Glucose 138 H (80-110) mg/dL Calcium 9.0 (8.4-10.2) mg/dL Magnesium 1.8 (1.6-2.3) mg/dL Total Bilirubin 0.7 (0.2-1.3) mg/dL AST 27 (14-36) IU/L ALT 36 H (<35) IU/L Alkaline Phosphatase 78 (38-126) U/L Troponin I < 0.012 (0.01-0.034) ng/mL NT-Pro-B Natriuret Pep 573 H (<450) pg/mL Total Protein 7.0 (6.3-8.2) g/dL Albumin 4.0 (3.5-5.0) g/dL Globulin 3.0 (1.7-4.1) g/dL Albumin/Globulin Ratio 1.3 (1.0-2.8) TSH < 0.015 L (0.47-4.68) uIU/mL ECG Data Interpretation: Sinus tachycardia 128bpm, no ST-T wave changes, no STEMI MDM Narrative Medical decision making narrative: Patient with heart pounding sensation patient arrives appearing extremely anxious, significant stutter to speech that patient states is only present when she's nervous. Sinus tachycardia noted on the monitor, however this does appear to decrease as patient rest in ED bed. Laboratory work and imaging ordered. Heart rate has stabilized at 90 beats per minute without need for any further interventions. Patient walked to to the bathroom and back without any difficulties. Heart rate after coming back to the bathroom was 130, however with rest quickly returned to 90 bpm, sinus rhythm. Patient states that she has been under a lot of stress recently because her last month and they have an elderly disabled daughter at home that they need to arrange long-term care for. Laboratory work reviewed, patient has stable chronic kidney disease. D-dimer mildly elevated, however within acceptable limits for age. TSH low. Chest x- ray negative for acute findings. Troponin undetectable. Patient has been asymptomatic since arrival to the emergency department. Patient counseled on lab and imaging findings. Recommended close PCP follow up for her TSH levels. Patient eager to go home. Discharged to the care of her family in stable condition Discharge Plan Departure Patient Disposition: Home Clinical Impression: Pounding heartbeat Instructions: DI for Palpitations Activity Restrictions/Additional Instructions: Your laboratory work, EKG, and chest x-ray today were all normal. Continue all of your medications as prescribed. Your thyroid levels today were on the low side. I recommend that you follow up with Karely Álvarez for further monitoring of this finding Prescriptions: No Action multivitamin Tablet 1 tab PO DAILY Qty: 0 metformin 500 mg tablet 1,000 mg PO BID glyburide 2.5 mg tablet 2.5 mg PO DAILY Patient Comments: patient states supposed to take but ran out about a month ago lisinopril 20 mg tablet 20 mg PO DAILY Patient Comments: TAKE 1 TABLET BY MOUTH EVERY DAY levothyroxine 125 mcg tablet 125 mcg PO DAILY Patient Comments: TAKE 1 TABLET BY MOUTH EVERY DAY ketoconazole 2 % cream 1 applic TOPICAL BID PRN (Reason: Rash) Patient Comments: Apply 1 liberally to affected area twice a day for rash on groin and feet cefuroxime axetil 500 mg tablet 500 mg PO BID Qty: 14 0RF Referrals: Karely Álvarez ARNP [Primary Care Provider] - Stand Alone Forms: Patient Portal/API
--- NOTE | 2024-04-25 03:32 | EKG_ITS ---
[address] [address] Test Date: 2024-04-25 Pat Name: Mana Stewart Department: Room: Gender: Female Manager Science: : 1950 Requested By: Order Number: [id number] Reading MD: Иван Peña Measurements Intervals [place] Rate: 128 P: 67 TX: 158 QRS: -31 QRSD: 86 T: 58 QT: 310 QTc: 452 Interpretive Statements Sinus tachycardia with premature atrial complexes Left axis deviation Electronically Signed On 04-25-2024 7:28:45 PDT by Иван Peña
--- NOTE | 2024-04-25 03:32 | DI.RAD.S_ITS ---
PROCEDURE: XR CHEST 1V INDICATIONS: PALPITATIONS TECHNIQUE: One view of the chest was acquired. COMPARISON: None. FINDINGS: Surgical changes and devices: None. Lungs and pleura: Lungs are clear. No pleural effusions or pneumothorax. Mediastinum: Mediastinal contours appear normal. Heart size is normal. Bones and chest wall: No suspicious bony lesions. Overlying soft tissues appear unremarkable. IMPRESSION: No acute cardiopulmonary pathology. No discrepancies. Dictated by: Mohinder Mehta M.D. on 04/25/2024 at 8:38 Approved by: Mohinder Mehta M.D. on 04/25/2024 at 8:39
--- NOTE | 2024-04-25 03:46 | PC.NURSE ---
see triage note for c/o details
[2024-04-25 03:49] LABS: Add Manual Diff / Slide Review NO; Basophils Absolute Auto 0 /uL (0-100); Basophils Percent Auto 0.5 % (0-2); Eosinophils Absolute Auto 400 /uL (0-450); Eosinophils Percent Auto 4.1 % (2-4); Hematocrit 37.5 % (36-46); Hemoglobin 12.7 g/dL (12.0-16.0); Lymphocytes Absolute Auto 2800 /uL (1100-4500); Mean Corpuscular HGB Conc 33.9 % (30-36); Mean Corpuscular Hemoglobin 29.9 PG (26-34); Mean Corpuscular Volume 88.4 fL (80-100); Monocytes Absolute Auto 900 /uL (0-900); Monocytes Percent Auto 9.3 % (3-14); Neutrophils Absolute Auto 5500 /uL (1500-7000); Neutrophils Percent Auto 57.1 % (50-75); Platelet Count 253 X10^3/uL (150-400); Red Blood Cell Count 4.24 X10^6/uL (4.0-5.2); Red Cell Distribution Width 13.2 % (11.6-14.8); White Blood Cell Count 9.7 X10^3/uL (4.5-11.0)
[2024-04-25 03:52] LABS: INR 1.1 (0.9-1.3); Prothrombin Time 12.4 SECONDS (9.4-12.5)
[2024-04-25] MEDS: dilTIAZem 25 MG/5 ML SDV 10 MG IV (03:52)
[2024-04-25 03:55] LABS: Alanine Aminotransferase 36 IU/L (<35); Albumin Globulin Ratio 1.3 (1.0-2.8); Alkaline Phosphatase 78 U/L (38-126); Aspartate Aminotransferase 27 IU/L (14-36); BUN Creatinine Ratio 21.9 (6-22); Bilirubin Total 0.7 mg/dL (0.2-1.3); Blood Urea Nitrogen 23 mg/dL (7-17); Carbon Dioxide 22 mmol/L (22-32); Chloride 106 mmol/L (98-107); Estimated Glomerular Filt Rate 55 mL/min (>60); Glucose 138 mg/dL (80-110); HEMOLYSIS < 15 (0-50); Magnesium 1.8 mg/dL (1.6-2.3); Potassium 3.3 mmol/L (3.4-5.1); Sodium 138 mmol/L (137-145)
[2024-04-25 04:01] LABS: D Dimer 868 ng/ml (<500)
[2024-04-25 04:03] LABS: NT-proBNP (BNP-Adult 18+) 573 pg/mL (<450)
[2024-04-25 04:35] LABS: Thyroid Stimulating Hormone < 0.015 uIU/mL (0.47-4.68)
[2024-04-25 04:36] LABS: Troponin I < 0.012 ng/mL (0.01-0.034)
== END 2024-04-25 05:32 | disposition home or self-care (01) ==
PROVIDERS: Emergency Provider Emergency Medicine; PCP Internal Medicine
DX: R00.2 Palpitations (principal); Z79.899 Other long term (current) drug therapy
CPT/HCPCS: 36415; 71045; 80053; 83735; 83880; 84443; 84484; 85025; 85379; 85610; 93005; 96374; 99284

== ENCOUNTER 2024-07-07 08:02 | Emergency (ER) | payer OTHER, SELFPAY ==
[2024-04-25 03:22] VITALS: BMI 22.0
[2024-07-07] VITALS (9 sets, daily range): BP systolic 169–218; BP diastolic 79–131; PULSE 105–120; RESP 17–31; TEMP 36.9; O2SAT 97–99; BMI 21.2
--- NOTE | 2024-07-07 08:13 | DI.CT.S_ITS ---
PROCEDURE: CT KIDNEY URETER BLADDER (KUB) INDICATIONS: acute Right flank pain TECHNIQUE: Axial sections were acquired from the lung bases to the pubic symphysis. Coronal and sagittal reformats were performed. For radiation dose reduction, the following was used: automated exposure control, adjustment of mA and/or kV according to patient size. COMPARISON: , CT, CT ABDOMEN PELVIS W CON, 11/13/2020, 20:30. FINDINGS: Image quality: Diagnostic. Lower Chest: No significant findings. URINARY: Right Kidney: No stones but there is moderate hydronephrosis. Right Ureter: Definite right-sided hydroureter, moderate. Within the far distal right ureter there is a 3 x 4 mm stone seen on series 2, image 126 and this same area was free of calcification on the comparison study from 11/13/20. Left Kidney: No stones or hydronephrosis. Left Ureter: No hydroureter. Bladder: Normal wall thickness. No stones. ABDOMEN: Liver: No contour-deforming solid mass. Gallbladder: Prior cholecystectomy Biliary ducts: No biliary dilation. Pancreas: No ductal dilation. Spleen: Size is within normal limits. Adrenal Glands: No adrenal nodules. Stomach and Bowel: Normal colonic caliber, without significant wall thickening. Postsurgical changes related to reported prior colon carcinoma surgery within the right abdomen. Peritoneum: No abnormal intraperitoneal fluid. No free air. Ventral Wall: No hernia. Abdominal Nodes: No enlarged retroperitoneal or mesenteric lymph nodes. Vessels: Aorta and inferior vena cava are normal in size. PELVIS: Pelvic Organs: Unremarkable. Pelvic Nodes: Unremarkable. Miscellaneous: No inguinal hernias are seen. Bones: Unremarkable. IMPRESSION: Far distal right ureteral stone which measures approximately 3 x 4 mm, and resides in an area previously well visualized by CT scanning in 2020 where no calcification had been present. Moderate right-sided hydronephrosis and hydroureter. Prior cholecystectomy and right colon surgery. Note: Findings called to and discussed with the emergency room physician caring for the patient. Dictated by: Kei Trinh M.D. on 07/07/2024 at 9:26 Approved by: Kei Trinh M.D. on 07/07/2024 at 9:32
--- NOTE | 2024-07-07 08:14 | ED.GENADULT ---
HPI - General Adult General Chief complaint: Back Pain/Injury Stated complaint: Back pain Time Seen by Provider: 07/07/24 08:08 History of Present Illness HPI narrative: 74-year-old woman with a history of TIA, history of colon and ovarian cancer, chronic kidney disease, hypothyroidism, type 2 diabetes, hypertension and hypothyroidism who presents with acute onset right flank pain at 6:00 a.m. this morning. She states she got up to void did not have any back pain at that time. She notes she was bit more active yesterday than typical. She reports no fevers or chills no dysuria, diarrhea, constipation. Describes the pain is in her right flank, sharp stabbing and severe. She has never had similar findings. She has no history of kidney stones, is post cholecystectomy Related Data Home Medications Medication Instructions Recorded Confirmed multivitamin 1 tab PO DAILY ##0 03/15/12 03/02/23 glyburide 2.5 mg tablet 2.5 mg PO DAILY 11/24/18 03/02/23 metformin 500 mg tablet 1,000 mg PO BID 11/24/18 03/02/23 ketoconazole 2 % topical cream 1 applic topical BID PRN Rash 03/02/23 03/02/23 levothyroxine 125 mcg tablet 125 mcg PO DAILY 03/02/23 03/02/23 lisinopril 20 mg tablet 20 mg PO DAILY 03/02/23 03/02/23 Previous Rx's Medication Instructions Recorded cefuroxime axetil 500 mg tablet 500 mg PO BID #14 tabs 03/04/23 hydrocodone 5 mg-acetaminophen 325 1 tab PO Q6-8H PRN pain #14 tabs 07/07/24 mg tablet tamsulosin 0.4 mg capsule 0.4 mg PO DAILY #14 caps 07/07/24 Allergies Allergy/AdvReac Type Severity Reaction Status Date / Time chocolate Allergy Rash Verified 07/07/24 08:30 peanut Allergy Rash Verified 07/07/24 08:30 Review of Systems Review of Systems Narrative: Pertinent positive and negative findings as per HPI Patient History Medical History Diabetes History of malignant neoplasm of colon (04/06/17) Essential hypertension (02/13/16) History of malignant neoplasm of colon (05/25/16) Type 2 diabetes mellitus without complication, without long-term current use of insulin (02/13/16) History of meningioma of the brain (12/04/14) History of malignant neoplasm of thyroid (12/04/14) Surgical History History of colectomy Status post delivery Status post delivery Family History Brother Cancer Brother Age: 78 Diabetes mellitus Child Age: 53 Ovarian cancer Colon cancer Father Cancer Diabetes mellitus Hypertension Grandmother Cancer Mother Cancer Grandmother Diabetes mellitus Social History household members: family Smoking Status: Never smoker alcohol intake: never Smoking Status: Never smoker alcohol intake frequency: 0-2 drinks per day Substance Use Type: does not use Exam Initial Vital Signs Initial Vital Signs: Vital Signs Pulse Rate 120 H 07/07/24 08:10 Pulse Oximetry 98 07/07/24 08:10 General: Frail appearing, in obvious pain pointing to her right flank but Able to give a complete and coherent history. HEENT: Moist mucous membranes, normal sclera with reactive pupils, Respiratory: Lungs are clear to auscultation, no wheezing no rales no rhonchi. Full and symmetrical air movement Cardiac: Tachycardic with no murmurs no bruits Abdomen: Soft, nontender, good bowel tones, no rebound or guarding, right flank pain with palpation. No skin changes appreciated Skin: Warm and dry, no rashes Neurologic: Grossly neurologically intact with no obvious asymmetries or abnormalities Extremities: No trauma, well perfused Psych: Cooperative, appropriate insight and affect Course Orders Ordered: ED Orders 07/07/24 08:13 CT kidney ureter bladder (KUB) Stat 07/07/24 08:18 EKG-12 Lead Stat 07/07/24 08:25 Complete Blood Count AUTO DIFF Stat Comprehensive Metabolic Panel Stat Lipase Stat Magnesium Stat 07/07/24 09:32 Urinalysis and Microscopic Stat Hydromorphone HCl (Hydromorphone 0.5 Mg Inj) 0.5 mg IV Q15MIN PRN PRN Reason: Pain, Last Admin: 07/07/24 08:26 Dose: 0.5 mg Documented By: RB Discontinued Medications Sodium Chloride (Normal Saline 0.9%) 1,000 mls @ 1,000 mls/hr IV BOLUS ONE Stop: 07/07/24 10:31 Last Admin: 07/07/24 09:42 Dose: 1,000 mls/hr Documented By: JACKIE Ketorolac Tromethamine (Ketorolac 30 Mg/Ml Vial) 15 mg IV NOW ONE Stop: 07/07/24 09:33 Last Admin: 07/07/24 09:42 Dose: 15 mg Documented By: JACKIE Ondansetron HCl (Ondansetron 4 Mg/2 Ml Inj) 4 mg IV NOW ONE Stop: 07/07/24 08:14 Last Admin: 07/07/24 08:26 Dose: 4 mg Documented By: DONNA Tamsulosin HCl (Tamsulosin 0.4 Mg Capsule) 0.4 mg PO NOW ONE Stop: 07/07/24 09:33 Last Admin: 07/07/24 09:42 Dose: 0.4 mg Documented By: JACKIE Vital Signs Vital signs: Vital Signs - 8 hr 07/07/24 08:10 07/07/24 08:13 07/07/24 08:38 Temperature 98.4 F Pulse Rate 120 H 120 H 109 H Respiratory Rate 20 31 H Blood Pressure 218/104 H Pulse Oximetry 98 99 99 Oxygen Delivery Method Room Air 07/07/24 08:39 07/07/24 08:39 07/07/24 09:00 Temperature Pulse Rate 109 H Respiratory Rate 31 H Blood Pressure 196/94 H 217/93 H Pulse Oximetry 99 Oxygen Delivery Method 07/07/24 09:00 07/07/24 09:53 07/07/24 09:54 Temperature Pulse Rate 105 H 112 H Respiratory Rate 17 Blood Pressure 181/131 H Pulse Oximetry 99 99 Oxygen Delivery Method 07/07/24 09:54 07/07/24 10:00 07/07/24 10:00 Temperature Pulse Rate 111 H 111 H Respiratory Rate 19 19 Blood Pressure 174/80 H Pulse Oximetry 99 98 Oxygen Delivery Method Medical Decision Making Lab Data 07/07/24 08:25 07/07/24 08:25 Labs: Lab Results 07/07/24 07/07/24 Range/Units 08:25 09:32 WBC 8.7 (4.5-11.0) X10^3/uL RBC 4.52 (4.0-5.2) X10^6/uL Hgb 12.7 (12.0-16.0) g/dL Hct 37.3 (36-46) % MCV 82.5 (80-100) fL MCH 28.1 (26-34) PG MCHC 34.0 (30-36) % RDW 13.4 (11.6-14.8) % Plt Count 191 (150-400) X10^3/uL Neut % (Auto) 83.4 H (50-75) % Lymph % (Auto) 12.7 L (25-40) % [place] % (Auto) 2.0 L (3-14) % Eos % (Auto) 1.4 L (2-4) % Baso % (Auto) 0.5 (0-2) % Neut # (Auto) 7300 H (0609-2615) /uL Lymph # (Auto) 1100 (4825-6973) /uL [place] # (Auto) 200 (0-900) /uL Eos # (Auto) 100 (0-450) /uL Baso # (Auto) 0 (0-100) /uL Sodium 137 (137-145) mmol/L Potassium 4.1 (3.4-5.1) mmol/L Chloride 107 (98-107) mmol/L Carbon Dioxide 23 (22-32) mmol/L BUN 27 H (7-17) mg/dL Creatinine 1.20 H (0.52-1.04) mg/dL Estimated GFR 47 L (>60) mL/min BUN/Creatinine Ratio 22.5 H (6-22) Glucose 195 H (80-110) mg/dL Calcium 9.1 (8.4-10.2) mg/dL Magnesium 1.6 (1.6-2.3) mg/dL Total Bilirubin 0.6 (0.2-1.3) mg/dL AST 20 (14-36) IU/L ALT 15 (<35) IU/L Alkaline Phosphatase 68 (38-126) U/L Total Protein 6.7 (6.3-8.2) g/dL Albumin 4.0 (3.5-5.0) g/dL Globulin 2.7 (1.7-4.1) g/dL Albumin/Globulin Ratio 1.5 (1.0-2.8) Lipase 62 (23-300) U/L Urine Color Yellow Urine Appearance Clear Urine pH 7.0 (4.5-8.0) Ur Specific [place] 1.015 (1.000-1.035) Urine Protein Negative (Negative) Urine Glucose (UA) 1+ H (Negative) g/dL Urine Ketones 1+ H (NEGATIVE) Urine Occult Blood 1+ H (Negative) Urine Nitrate Negative (Negative) Urine Bilirubin Negative (NEGATIVE) Urine Urobilinogen 0.2 (0.2) E.U./dL Ur Leukocyte Esterase Trace H (NEGATIVE) Urine RBC 1-5/hpf (0-5/HPF) Urine WBC 1-5/hpf (0-5/HPF) Ur Squamous Epith Cells 0-1 /hpf (0-5/HPF) Urine Bacteria None seen (None) Ur Culture Indicated? Cult not indicated Vol Urine Centrifuged 10ml (spun) MDM Narrative Medical decision making narrative: CC: Acute onset right flank pain Complicating co-morbidities: Prior colon cancer, thyroid cancer, cholecystectomy Data collected from: patient Medical records reviewed: Hospital discharge from February of 2023 after a TIA is reviewed Differential considered: Kidney stone, bowel obstruction, volvulus, pyelonephritis, appendicitis Exam documented above, pertinent findings include: Patient is in obvious pain, tachycardic hypertensive and only significant abnormality on exam is tenderness in the right flank. She does not have an acute abdomen on exam today Lab Test results independently reviewed as above. Pertinent findings: CBC is unremarkable, no leukocytosis Chemistries notable for creatinine of 1.2 which is within her baseline, electrolytes are unremarkable, slightly elevated glucose at 195, liver studies are unremarkable Independently reviewed EKG: EKG shows sinus tachycardia at 114, no acute Imaging studies independently reviewed: CT scan shows right hydronephrosis with 3-4 mm kidney stone in the distal right ureter consistent with her clinical presentation Treatments: Fluid, Toradol, Dilaudid, tamsulosin Re-evaluations: Prior to discharge patient is pain-free she still is slightly tachycardic and slightly hypertensive she has not taking her morning medication, will ask her to do so when she gets home Discussion: 74-year-old woman presents with 10/10 right-sided flank pain acute onset at 6:[address] scan shows kidney stone consistent with her presentation. No evidence of infection, appendicitis, obstruction or alternate explanation for her symptoms. She responded well to fluids and pain medications. We talked about continued pain medications until the stone is passed, stool softeners we will have her avoid nonsteroidals due to her baseline tenuous kidney function we also clearly reviewed the importance of stool softener in the setting of increasing pain and narcotics to avoid constipation. Currently no indication for hospitalization or further imaging, Questions are answered and she is safe for discharge Discharge Plan Departure Patient Disposition: Home Clinical Impression: Kidney stone Instructions: DI for Kidney Stones Activity Restrictions/Additional Instructions: Thank you for coming in today You have a kidney stone, the pain that you were experiencing is very much 10/10 severe pain, I am glad we been able to get that under control In the emergency room you were given fluids, a single dose of Toradol, Dilaudid which is a narcotic pain medication as well as a dose of tamsulosin. The tamsulosin can help the ureter (the tube connecting the kidney to the bladder) relax just a bit so the stone will pass by itself. I have given you a prescription for tamsulosin, please take 1 daily until the stone has passed. At that point you no longer need this medication For pain control, you can use Tylenol for medium pain and for severe pain please add hydrocodone/Tylenol to that. This is a narcotic and needs to be taken with at least 1 cap full of MiraLax daily. If you still have not had a bowel movement by the evening and would suggest taking a 2nd cap full of MiraLax. If you find that the pain returns to levels that you experienced this morning you do need to return to the ER. Most people were going to be able to pass the size stone at home. If you are still having pain and believe the stone has not passed with the next couple of days, please call our urologist, Dr Foster at [phone] to schedule a follow up appointment If you find that you are getting worse or develop any new symptoms, please feel free to return to the emergency department for further evaluation. Prescriptions: New hydrocodone-acetaminophen 5-325 mg tablet 1 tab PO Q6-8H PRN (Reason: pain) Qty: 14 0RF Rx Instructions: take with stool softner tamsulosin 0.4 mg capsule 0.4 mg PO DAILY Qty: 14 0RF Rx Instructions: discontinue after kidney stone has passed No Action multivitamin Tablet 1 tab PO DAILY Qty: 0 metformin 500 mg tablet 1,000 mg PO BID glyburide 2.5 mg tablet 2.5 mg PO DAILY Patient Comments: patient states supposed to take but ran out about a month ago lisinopril 20 mg tablet 20 mg PO DAILY Patient Comments: TAKE 1 TABLET BY MOUTH EVERY DAY levothyroxine 125 mcg tablet 125 mcg PO DAILY Patient Comments: TAKE 1 TABLET BY MOUTH EVERY DAY ketoconazole 2 % cream 1 applic TOPICAL BID PRN (Reason: Rash) Patient Comments: Apply 1 liberally to affected area twice a day for rash on groin and feet cefuroxime axetil 500 mg tablet 500 mg PO BID Qty: 14 0RF Referrals: Karely Álvarez ARNP [Primary Care Provider] - Stand Alone Forms: Patient Portal/API
--- NOTE | 2024-07-07 08:21 | EKG_ITS ---
[address] [address] Test Date: 2024-07-07 Pat Name: Mana Stewart Department: Room: Gender: Female [employer] Coordinator: DONTE : 1950 Requested By: Order Number: [id number] Reading MD: Иван Peña Measurements Intervals [place] Rate: 114 P: 101 ID: [id number] QRS: -34 QRSD: 88 T: 64 QT: 330 QTc: 454 Interpretive Statements Sinus tachycardia with occasional premature ventricular complexes Left axis deviation Septal infarct , age undetermined Electronically Signed On 07-11-2024 15:20:54 PDT by Иван Peña
[2024-07-07] MEDS: HYDROMORPHONE 0.5 MG INJ IV (08:26)
[2024-07-07] MEDS: ONDANSETRON 4 MG/2 ML INJ IV (08:26)
[2024-07-07 08:34] LABS: Add Manual Diff / Slide Review NO; Basophils Absolute Auto 0 /uL (0-100); Basophils Percent Auto 0.5 % (0-2); Eosinophils Absolute Auto 100 /uL (0-450); Eosinophils Percent Auto 1.4 % (2-4); Hematocrit 37.3 % (36-46); Hemoglobin 12.7 g/dL (12.0-16.0); Lymphocytes Absolute Auto 1100 /uL (1100-4500); Lymphocytes Percent Auto 12.7 % (25-40); Mean Corpuscular Hemoglobin 28.1 PG (26-34); Mean Corpuscular Volume 82.5 fL (80-100); Monocytes Absolute Auto 200 /uL (0-900); Neutrophils Absolute Auto 7300 /uL (1500-7000); Neutrophils Percent Auto 83.4 % (50-75); Platelet Count 191 X10^3/uL (150-400); Red Blood Cell Count 4.52 X10^6/uL (4.0-5.2); Red Cell Distribution Width 13.4 % (11.6-14.8); White Blood Cell Count 8.7 X10^3/uL (4.5-11.0)
[2024-07-07 08:55] LABS: Alanine Aminotransferase 15 IU/L (<35); Albumin Globulin Ratio 1.5 (1.0-2.8); Alkaline Phosphatase 68 U/L (38-126); Aspartate Aminotransferase 20 IU/L (14-36); BUN Creatinine Ratio 22.5 (6-22); Bilirubin Total 0.6 mg/dL (0.2-1.3); Blood Urea Nitrogen 27 mg/dL (7-17); Calcium 9.1 mg/dL (8.4-10.2); Carbon Dioxide 23 mmol/L (22-32); Chloride 107 mmol/L (98-107); Estimated Glomerular Filt Rate 47 mL/min (>60); Globulin 2.7 g/dL (1.7-4.1); Glucose 195 mg/dL (80-110); HEMOLYSIS < 15 (0-50); Lipase 62 U/L (23-300); Magnesium 1.6 mg/dL (1.6-2.3); Potassium 4.1 mmol/L (3.4-5.1); Sodium 137 mmol/L (137-145); Total Protein 6.7 g/dL (6.3-8.2)
[2024-07-07 09:40] LABS: Appearance Urine UA CLEAR; Bilirubin Urine UA NEGATIVE (NEGATIVE); Color Urine UA YELLOW; Glucose Urine UA 1+ g/dL (Negative); Ketones Urine UA 1+ (NEGATIVE); Leukocyte Esterase Urine UA TRACE (NEGATIVE); Nitrite Urine UA NEGATIVE (Negative); Occult Blood Urine UA 1+ (Negative); Protein Urine UA NEGATIVE (Negative); Specific Gravity Urine UA 1.015 (1.000-1.035); Urobilinogen Urine UA 0.2 E.U./dL (0.2)
[2024-07-07] MEDS: KETOROLAC 30 MG/ML VIAL 15 MG IV (09:42)
[2024-07-07] MEDS: SODIUM CHLORIDE 0.9% 1,000 ML 1000 ML IV (09:42)
[2024-07-07] MEDS: TAMSULOSIN 0.4 MG CAPSULE PO (09:42)
[2024-07-07 09:54] LABS: Urine Volume 10mL (spun)
[2024-07-07 09:55] LABS: Bacteria Urine None Seen; Culture Indicated Urine Cult Not Indicated; RBC Urine 1-5/HPF (0-5/HPF); Squamous Epithelial Cell Urine 0-1 /HPF (0-5/HPF); WBC Urine 1-5/HPF (0-5/HPF)
== END 2024-07-07 11:13 | disposition home or self-care (01) ==
PROVIDERS: Emergency Provider Emergency Medicine; PCP Internal Medicine
DX: N20.0 Calculus of kidney (principal); R00.0 Tachycardia, unspecified; I10 Essential (primary) hypertension; Z86.73 Personal history of transient ischemic attack (TIA), and cerebral infarction without residual deficits; N18.9 Chronic kidney disease, unspecified; E11.9 Type 2 diabetes mellitus without complications; Z79.899 Other long term (current) drug therapy
CPT/HCPCS: 36415; 74176; 80053; 81001; 83690; 83735; 85025; 93005; 96361; 96374; 96375; 99284; J1171; J1885; J2405

== ENCOUNTER 2024-07-08 06:53 | Emergency (ER) | payer OTHER, SELFPAY ==
[2024-04-25 03:22] VITALS: BMI 22.0
[2024-07-08] VITALS (116 sets, daily range): BP systolic 61–152; BP diastolic 40–86; PULSE 97–131; RESP 2–39; TEMP 33.3–37.7; O2SAT 86–100; BMI 21.2
[2024-07-08] MEDS: SODIUM CHLORIDE 0.9% 1,000 ML 1000 ML IV (07:10)
--- NOTE | 2024-07-08 07:26 | ED.ABDPAIN ---
HPI - Abdominal Pain General Chief Complaint: Abdominal Pain Stated Complaint: left side pain Time Seen by Provider: 07/08/24 06:56 History of Present Illness HPI narrative: Patient is a 74-year-old female history of TIA colon and ovarian cancer chronic kidney disease hypothyroid type 2 diabetes hypertension presents today with left-sided flank pain. She was seen and evaluated here yesterday with right-sided flank pain. She was found to have 3-4 mm kidney stone in the distal right side which explained her symptoms. At that time she was tachycardic and hypertensive. This morning she is tachycardic and hypotensive with a blood pressure in the 70s Related Data Home Medications Medication Instructions Recorded Confirmed multivitamin 1 tab PO DAILY ##0 03/15/12 03/02/23 glyburide 2.5 mg tablet 2.5 mg PO DAILY 11/24/18 03/02/23 metformin 500 mg tablet 1,000 mg PO BID 11/24/18 03/02/23 ketoconazole 2 % topical cream 1 applic topical BID PRN Rash 03/02/23 03/02/23 levothyroxine 125 mcg tablet 125 mcg PO DAILY 03/02/23 03/02/23 lisinopril 20 mg tablet 20 mg PO DAILY 03/02/23 03/02/23 Previous Rx's Medication Instructions Recorded cefuroxime axetil 500 mg tablet 500 mg PO BID #14 tabs 03/04/23 hydrocodone 5 mg-acetaminophen 325 1 tab PO Q6-8H PRN pain #14 tabs 07/07/24 mg tablet tamsulosin 0.4 mg capsule 0.4 mg PO DAILY #14 caps 07/07/24 Allergies Allergy/AdvReac Type Severity Reaction Status Date / Time chocolate Allergy Rash Verified 07/07/24 08:30 peanut Allergy Rash Verified 07/07/24 08:30 Patient History Medical History Diabetes History of malignant neoplasm of colon (04/06/17) Essential hypertension (02/13/16) History of malignant neoplasm of colon (02/13/16) Type 2 diabetes mellitus without complication, without long-term current use of insulin (02/13/16) History of meningioma of the brain (12/04/14) History of malignant neoplasm of thyroid (12/04/14) Surgical History History of colectomy Status post delivery Status post delivery Family History Brother Cancer Brother Age: 78 Diabetes mellitus Child Age: 53 Ovarian cancer Colon cancer Father Cancer Diabetes mellitus Hypertension Grandmother Cancer Mother Cancer Grandmother Diabetes mellitus Social History household members: family Smoking Status: Never smoker alcohol intake: never Smoking Status: Never smoker alcohol intake frequency: 0-2 drinks per day Substance Use Type: does not use Exam Initial Vital Signs Initial Vital Signs: Vital Signs Pulse Oximetry 95 07/08/24 06:55 GENERAL: Alert week pale 74-year-old female HEENT: Head atraumatic,EOMI, pupils reactive, face symmetric, dry mucous membranes CARDIOVASCULAR: Regular rate and rhythm without murmurs, rubs or gallops. RESPIRATORY: Breath sounds equal bilaterally, no wheezes rales or rhonchi. ABDOMEN: Soft, nontender. Normoactive bowel sounds all 4 quadrants. No guarding or rebound. : No CVA tenderness EXTREMITIES: Normal range of motion, no clubbing or edema. Neurovascularly intact NEUROLOGICAL: Alert and oriented x4.Normal gait and speech. Cranial nerves II through XII grossly intact. 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 Procedures Central Line Placement Right IJ: Time Out Performed: Yes Patient Placed on Monitor/Pulse Ox: No MD Prep: mask, gown and gloves Central Line Prep: Chlorhexidine scrub and sterile drapes applied Local Anesthetic: lidocaine 1% Amount of anesthesia used (mL): 3 Ultrasound Used for Placement: Yes Central Line Lumen Inserted: triple Post Procedure: good blood return, all ports aspirated, flushed, capped, sterile dressing applied and line stabilization device Post Procedure X-Ray: tip of catheter in good position and no pneumothorax seen Patient Tolerated Procedure: Well and No complications Complications: none Course Orders Ordered: ED Orders 07/08/24 09:20 Trop I [Troponin I] Stat 07/08/24 09:33 Chest [XR chest 1V] Stat 07/08/24 09:56 UA Complete [Urinalysis and Microscopic] Stat 07/08/24 10:17 Respiratory Panel (Film Array) Stat 07/08/24 11:53 CMP [Comprehensive Metabolic Panel] Stat Lactate (Lactic Acid) Stat Discontinued Medications Sodium Chloride (Normal Saline 0.9%) 1,000 mls @ 1,000 mls/hr IV BOLUS ONE Stop: 07/08/24 08:19 Last Infusion: 07/08/24 08:12 Dose: Infused Documented By: Admin: 07/08/24 07:10 Dose: 1,000 mls/hr Documented By: MPO Piperacillin Sod/Tazobactam (Sod 4.5 gm/ Sodium Chloride) 100 mls @ 200 mls/hr IV NOW ONE Stop: 07/08/24 07:37 Last Infusion: 07/08/24 08:45 Dose: Infused Documented By: Admin: 07/08/24 08:01 Dose: 200 mls/hr Documented By: MPO NOREPINEPHRINE BITARTRATE/D5W (Levophed) 4 mg in 250 mls @ 23.814 mls/hr IV TITRATE NEGRITA; Protocol Last Titration: 07/08/24 15:23 Dose: 0.8 mcg/kg/min, 190.509 mls/hr Documented By: Admin: 07/08/24 14:40 Dose: 0.8 mcg/kg/min, 190.509 mls/hr Documented By: Titration: 07/08/24 14:38 Dose: Infused Documented By: Titration: 07/08/24 13:00 Dose: 0.8 mcg/kg/min, 190.509 mls/hr Documented By: Titration: 07/08/24 12:58 Dose: 0.6 mcg/kg/min, 142.882 mls/hr Documented By: Admin: 07/08/24 12:57 Dose: 0.8 mcg/kg/min, 190.509 mls/hr Documented By: Titration: 07/08/24 12:53 Dose: Infused Documented By: Titration: 07/08/24 12:39 Dose: 0.5 mcg/kg/min, 119.068 mls/hr Documented By: Titration: 07/08/24 12:14 Dose: 0.6 mcg/kg/min, 142.882 mls/hr Documented By: Admin: 07/08/24 11:19 Dose: 0.8 mcg/kg/min, 190.509 mls/hr Documented By: Titration: 07/08/24 11:18 Dose: Infused Documented By: Titration: 07/08/24 11:00 Dose: 0.6 mcg/kg/min, 142.882 mls/hr Documented By: Titration: 07/08/24 10:40 Dose: 0.5 mcg/kg/min, 119.068 mls/hr Documented By: Titration: 07/08/24 09:01 Dose: 0.4 mcg/kg/min, 95.255 mls/hr Documented By: Titration: 07/08/24 08:40 Dose: 0.2 mcg/kg/min, 47.627 mls/hr Documented By: Admin: 07/08/24 08:15 Dose: 0.1 mcg/kg/min, 23.814 mls/hr Documented By: MPO Lactated Ringer's (Lactated Ringers) 1,905.09 mls @ 635.03 mls/hr 30 ml/kg infuse over 3 hr (1905.09 ml) IV NOW ONE Stop: 07/08/24 11:12 Last Infusion: 07/08/24 11:10 Dose: Infused Documented By: Admin: 07/08/24 08:57 Dose: 635.03 mls/hr Documented By: MPO Vancomycin HCl (Vancomycin) 1,250 mg in 250 mls @ 250 mls/hr IV NOW ONE Stop: 07/08/24 10:25 Last Infusion: 07/08/24 12:14 Dose: Infused Documented By: Admin: 07/08/24 10:09 Dose: 250 mls/hr Documented By: MPO Acetaminophen (Ofirmev) 1,000 mg in 100 mls @ 400 mls/hr IV NOW ONE Stop: 07/08/24 10:06 Last Infusion: 07/08/24 10:35 Dose: Infused Documented By: Admin: 07/08/24 10:10 Dose: 400 mls/hr Documented By: MPO Lactated Ringer's (Lactated Ringers) 1,000 mls @ 125 mls/hr IV CONT NEGRITA Last Infusion: 07/08/24 15:24 Dose: 125 mls/hr Documented By: Admin: 07/08/24 11:39 Dose: 125 mls/hr Documented By: MPO Piperacillin Sod/Tazobactam (Sod 3.375 gm/ Sodium Chloride) 100 mls @ 25 mls/hr IV Q8H NEGRITA Vasopressin 40 unit/ Sodium (Chloride) 102 mls @ 4.5 mls/hr IV CONT NEGRITA Last Infusion: 07/08/24 15:23 Dose: 4.5 mls/hr Documented By: Admin: 07/08/24 11:42 Dose: 4.5 mls/hr Documented By: MPO Piperacillin Sod/Tazobactam (Sod 3.375 gm/ Sodium Chloride) 100 mls @ 25 mls/hr IV Q12H NEGRITA Last Infusion: 07/08/24 15:24 Dose: 25 mls/hr Documented By: Admin: 07/08/24 13:57 Dose: 25 mls/hr Documented By: MPO Morphine Sulfate (Morphine 2 Mg/Ml Inj) 2 mg IV NOW ONE Stop: 07/08/24 11:05 Last Admin: 07/08/24 11:11 Dose: 2 mg Documented By: MPO Vital Signs Vital signs: Vital Signs - 8 hr 07/08/24 10:20 07/08/24 10:20 07/08/24 10:25 Temperature 99.0 F 98.6 F Pulse Rate 125 H 123 H Respiratory Rate 28 H 26 H Blood Pressure 88/46 L Pulse Oximetry 95 95 Oxygen Delivery Method Oxygen Flow Rate 07/08/24 10:25 07/08/24 10:30 07/08/24 10:30 Temperature 98.8 F Pulse Rate 125 H Respiratory Rate 28 H Blood Pressure 85/43 L 90/50 L Pulse Oximetry 95 Oxygen Delivery Method Oxygen Flow Rate 07/08/24 10:35 07/08/24 10:35 07/08/24 10:39 Temperature 98.8 F 98.8 F Pulse Rate 122 H 122 H Respiratory Rate 22 23 Blood Pressure 84/45 L Pulse Oximetry 95 94 Oxygen Delivery Method Oxygen Flow Rate 07/08/24 10:39 07/08/24 10:40 07/08/24 10:40 Temperature 98.8 F Pulse Rate 123 H Respiratory Rate 22 Blood Pressure 81/44 L 86/50 L Pulse Oximetry 95 Oxygen Delivery Method Oxygen Flow Rate 07/08/24 10:45 07/08/24 10:45 07/08/24 10:50 Temperature 98.8 F Pulse Rate 122 H Respiratory Rate 24 Blood Pressure 89/50 L 84/46 L Pulse Oximetry 94 Oxygen Delivery Method Oxygen Flow Rate 07/08/24 10:50 07/08/24 10:55 07/08/24 10:55 Temperature 98.4 F 98.8 F Pulse Rate 123 H 123 H Respiratory Rate 24 21 Blood Pressure 86/47 L Pulse Oximetry 93 94 Oxygen Delivery Method Oxygen Flow Rate 07/08/24 11:00 07/08/24 11:00 07/08/24 11:05 Temperature 98.8 F 98.6 F Pulse Rate 123 H 123 H Respiratory Rate 24 24 Blood Pressure 86/48 L Pulse Oximetry 93 92 Oxygen Delivery Method Oxygen Flow Rate 07/08/24 11:05 07/08/24 11:10 07/08/24 11:10 Temperature 98.8 F Pulse Rate 123 H Respiratory Rate 27 H Blood Pressure 87/49 L 81/45 L Pulse Oximetry 93 Oxygen Delivery Method Oxygen Flow Rate 07/08/24 11:12 07/08/24 11:12 07/08/24 11:15 Temperature 98.2 F 98.4 F Pulse Rate 124 H 118 H Respiratory Rate Blood Pressure 83/46 L Pulse Oximetry 91 91 Oxygen Delivery Method Oxygen Flow Rate 07/08/24 11:15 07/08/24 11:20 07/08/24 11:20 Temperature 98.6 F Pulse Rate 124 H Respiratory Rate Blood Pressure 74/40 L 98/53 L Pulse Oximetry 91 Oxygen Delivery Method Oxygen Flow Rate 07/08/24 11:25 07/08/24 11:25 07/08/24 11:30 Temperature 98.6 F 98.6 F Pulse Rate 126 H 125 H Respiratory Rate Blood Pressure 105/51 L Pulse Oximetry 91 89 L Oxygen Delivery Method Oxygen Flow Rate 07/08/24 11:30 07/08/24 11:35 07/08/24 11:35 Temperature 98.6 F Pulse Rate 127 H Respiratory Rate 24 Blood Pressure 108/53 L 104/51 L Pulse Oximetry 91 Oxygen Delivery Method Oxygen Flow Rate 07/08/24 11:40 07/08/24 11:40 07/08/24 11:45 Temperature 98.6 F 98.6 F Pulse Rate 128 H 129 H Respiratory Rate 22 17 Blood Pressure 107/52 L Pulse Oximetry 90 L 91 Oxygen Delivery Method Oxygen Flow Rate 07/08/24 11:45 07/08/24 11:50 07/08/24 11:50 Temperature 98.6 F Pulse Rate 129 H Respiratory Rate 21 Blood Pressure 113/55 L 121/58 L Pulse Oximetry 97 Oxygen Delivery Method Oxygen Flow Rate 07/08/24 11:55 07/08/24 11:55 07/08/24 12:00 Temperature 98.4 F 98.4 F Pulse Rate 130 H 128 H Respiratory Rate 21 19 Blood Pressure 130/59 L Pulse Oximetry 95 87 L Oxygen Delivery Method Oxygen Flow Rate 07/08/24 12:00 07/08/24 12:05 07/08/24 12:05 Temperature 98.4 F Pulse Rate 127 H Respiratory Rate 19 Blood Pressure 129/58 L 131/60 Pulse Oximetry 86 L Oxygen Delivery Method Nasal Cannula Oxygen Flow Rate 2 07/08/24 12:10 07/08/24 12:10 07/08/24 12:15 Temperature 98.6 F 98.6 F Pulse Rate 128 H 128 H Respiratory Rate 20 20 Blood Pressure 137/63 Pulse Oximetry 87 L 90 L Oxygen Delivery Method Nasal Cannula Oxygen Flow Rate 2 07/08/24 12:15 07/08/24 12:20 07/08/24 12:20 Temperature 98.6 F Pulse Rate 127 H Respiratory Rate 25 H Blood Pressure 126/58 L 119/58 L Pulse Oximetry 90 L Oxygen Delivery Method Oxygen Flow Rate 07/08/24 12:25 07/08/24 12:25 07/08/24 12:30 Temperature 98.4 F 98.8 F Pulse Rate 125 H 124 H Respiratory Rate 22 22 Blood Pressure 118/58 L Pulse Oximetry 89 L 91 Oxygen Delivery Method Oxygen Flow Rate 3 07/08/24 12:30 07/08/24 12:35 07/08/24 12:35 Temperature 98.8 F Pulse Rate 125 H Respiratory Rate 20 Blood Pressure 121/60 122/65 Pulse Oximetry 93 Oxygen Delivery Method Nasal Cannula Oxygen Flow Rate 07/08/24 12:40 07/08/24 12:40 07/08/24 12:45 Temperature 98.8 F Pulse Rate 124 H Respiratory Rate 17 Blood Pressure 113/56 L 106/55 L Pulse Oximetry 91 Oxygen Delivery Method Oxygen Flow Rate 07/08/24 12:45 07/08/24 12:50 07/08/24 12:50 Temperature 99.0 F 99.0 F Pulse Rate 122 H 109 H Respiratory Rate 18 24 Blood Pressure 61/40 L Pulse Oximetry 91 89 L Oxygen Delivery Method Nasal Cannula Nasal Cannula Oxygen Flow Rate 3 3 07/08/24 12:55 07/08/24 12:55 07/08/24 13:00 Temperature 99.0 F 99.1 F Pulse Rate 124 H 121 H Respiratory Rate 19 19 Blood Pressure 145/73 H Pulse Oximetry 89 L 91 Oxygen Delivery Method Nasal Cannula Nasal Cannula Oxygen Flow Rate 3 07/08/24 13:00 07/08/24 13:05 07/08/24 13:05 Temperature 99.1 F Pulse Rate 120 H Respiratory Rate 20 Blood Pressure 139/63 127/60 Pulse Oximetry 91 Oxygen Delivery Method Oxygen Flow Rate 07/08/24 13:10 07/08/24 13:10 07/08/24 13:15 Temperature 99.1 F 95.7 F L Pulse Rate 121 H 120 H Respiratory Rate 21 21 Blood Pressure 117/57 L Pulse Oximetry 91 90 L Oxygen Delivery Method Oxygen Flow Rate 07/08/24 13:15 07/08/24 13:20 07/08/24 13:20 Temperature 95.7 F L Pulse Rate 122 H Respiratory Rate 25 H Blood Pressure 115/55 L 119/57 L Pulse Oximetry 90 L Oxygen Delivery Method Oxygen Flow Rate 07/08/24 13:25 07/08/24 13:25 07/08/24 13:30 Temperature 95.7 F L 98.6 F Pulse Rate 124 H 126 H Respiratory Rate 28 H 33 H Blood Pressure 120/56 L Pulse Oximetry 91 91 Oxygen Delivery Method Oxygen Flow Rate 07/08/24 13:30 07/08/24 13:35 07/08/24 13:35 Temperature 94.6 F L Pulse Rate 126 H Respiratory Rate 23 Blood Pressure 135/64 143/64 H Pulse Oximetry 92 Oxygen Delivery Method Oxygen Flow Rate 07/08/24 13:40 07/08/24 13:40 07/08/24 13:45 Temperature 94.6 F L 99.0 F Pulse Rate 127 H 128 H Respiratory Rate 35 H 28 H Blood Pressure 137/67 Pulse Oximetry 92 91 Oxygen Delivery Method Oxygen Flow Rate 07/08/24 13:45 07/08/24 13:50 07/08/24 13:50 Temperature 99.1 F Pulse Rate 126 H Respiratory Rate 26 H Blood Pressure 131/66 134/86 Pulse Oximetry 92 Oxygen Delivery Method Oxygen Flow Rate 07/08/24 13:55 07/08/24 13:55 07/08/24 14:00 Temperature 99.0 F Pulse Rate 129 H Respiratory Rate 30 H Blood Pressure 140/63 126/61 Pulse Oximetry 92 Oxygen Delivery Method Oxygen Flow Rate 07/08/24 14:00 07/08/24 14:05 07/08/24 14:05 Temperature 91.9 F L 99.1 F Pulse Rate 128 H 127 H Respiratory Rate 23 23 Blood Pressure 118/58 L Pulse Oximetry 91 91 Oxygen Delivery Method Oxygen Flow Rate 07/08/24 14:10 07/08/24 14:10 07/08/24 14:14 Temperature 91.9 F L Pulse Rate 128 H Respiratory Rate 23 Blood Pressure 123/60 127/59 L Pulse Oximetry 91 Oxygen Delivery Method Oxygen Flow Rate 07/08/24 14:14 07/08/24 14:15 07/08/24 14:15 Temperature 91.9 F L 99.5 F Pulse Rate 128 H 128 H Respiratory Rate 30 H 22 Blood Pressure 124/58 L Pulse Oximetry 91 91 Oxygen Delivery Method Oxygen Flow Rate 07/08/24 14:20 07/08/24 14:20 07/08/24 14:25 Temperature 99.7 F H 99.7 F H Pulse Rate 124 H 125 H Respiratory Rate 22 25 H Blood Pressure 121/58 L Pulse Oximetry 91 90 L Oxygen Delivery Method Oxygen Flow Rate 07/08/24 14:25 07/08/24 14:30 07/08/24 14:30 Temperature 99.7 F H Pulse Rate 126 H Respiratory Rate 21 Blood Pressure 120/59 L 117/57 L Pulse Oximetry 88 L Oxygen Delivery Method Oxygen Flow Rate 07/08/24 14:35 07/08/24 14:35 07/08/24 14:40 Temperature 99.9 F H 99.9 F H Pulse Rate 126 H 120 H Respiratory Rate 27 H 23 Blood Pressure 116/57 L Pulse Oximetry 91 91 Oxygen Delivery Method Nasal Cannula Nasal Cannula Oxygen Flow Rate 3 3 07/08/24 14:40 07/08/24 14:42 07/08/24 14:42 Temperature 99.9 F H Pulse Rate 128 H Respiratory Rate 21 Blood Pressure 88/50 L 131/62 Pulse Oximetry 89 L Oxygen Delivery Method Oxygen Flow Rate 07/08/24 14:45 07/08/24 14:45 07/08/24 14:50 Temperature 99.9 F H Pulse Rate 127 H Respiratory Rate 29 H Blood Pressure 144/67 H 150/75 H Pulse Oximetry 91 Oxygen Delivery Method Oxygen Flow Rate 07/08/24 14:50 07/08/24 14:55 07/08/24 14:55 Temperature 99.9 F H 99.9 F H Pulse Rate 127 H 125 H Respiratory Rate 28 H 21 Blood Pressure 124/58 L Pulse Oximetry 90 L 88 L Oxygen Delivery Method Oxygen Flow Rate 07/08/24 15:00 07/08/24 15:00 07/08/24 15:05 Temperature 99.9 F H 99.9 F H Pulse Rate 127 H 127 H Respiratory Rate 25 H 23 Blood Pressure 152/70 H Pulse Oximetry 90 L 91 Oxygen Delivery Method Oxygen Flow Rate 07/08/24 15:05 Temperature Pulse Rate Respiratory Rate Blood Pressure 150/68 H Pulse Oximetry Oxygen Delivery Method Oxygen Flow Rate MDM - Abdominal Pain Lab Data 07/08/24 07:08 07/08/24 11:53 Labs: Lab Results 07/08/24 07/08/24 07/08/24 Range/Units 07:08 09:20 09:28 WBC 7.7 (4.5-11.0) X10^3/uL RBC 4.18 (4.0-5.2) X10^6/uL Hgb 11.9 L (12.0-16.0) g/dL Hct 35.0 L (36-46) % MCV 83.7 (80-100) fL MCH 28.4 (26-34) PG MCHC 34.0 (30-36) % RDW 13.7 (11.6-14.8) % Plt Count 92 L (150-400) X10^3/uL Neut % (Auto) 92.9 H (50-75) % Lymph % (Auto) 4.4 L (25-40) % [place] % (Auto) 2.5 L (3-14) % Eos % (Auto) 0.1 L (2-4) % Baso % (Auto) 0.1 (0-2) % Neut # (Auto) 7100 H (0959-5173) /uL Lymph # (Auto) 300 L (2117-3120) /uL [place] # (Auto) 200 (0-900) /uL Eos # (Auto) 0 (0-450) /uL Baso # (Auto) 0 (0-100) /uL Sodium 134 L (137-145) mmol/L Potassium 3.6 (3.4-5.1) mmol/L Chloride 104 (98-107) mmol/L Carbon Dioxide 15 L (22-32) mmol/L BUN 39 H (7-17) mg/dL Creatinine 2.50 H (0.52-1.04) mg/dL Estimated GFR 20 L (>60) mL/min BUN/Creatinine Ratio 15.6 (6-22) Glucose 222 H (80-110) mg/dL Lactate 6.6 H* 6.6 H* (0.7-2.1) mmol/L Calcium 8.7 (8.4-10.2) mg/dL Total Bilirubin 1.1 (0.2-1.3) mg/dL AST 54 H (14-36) IU/L ALT 85 H (<35) IU/L Alkaline Phosphatase 144 H D (38-126) U/L Total Creatine Kinase 241 H (30-135) U/L Troponin I 2.200 H* 1.730 H* (0.01-0.034) ng/mL Total Protein 6.0 L (6.3-8.2) g/dL Albumin 3.5 (3.5-5.0) g/dL Globulin 2.5 (1.7-4.1) g/dL Albumin/Globulin Ratio 1.4 (1.0-2.8) Procalcitonin 40.4 H (<0.5) ng/mL Urine Color Urine Appearance Urine pH (4.5-8.0) Ur Specific [place] (1.000-1.035) Urine Protein (Negative) Urine Glucose (UA) (Negative) g/dL Urine Ketones (NEGATIVE) Urine Occult Blood (Negative) Urine Nitrate (Negative) Urine Bilirubin (NEGATIVE) Urine Urobilinogen (0.2) E.U./dL Ur Leukocyte Esterase (NEGATIVE) Urine RBC (0-5/HPF) Urine WBC (0-5/HPF) Ur Squamous Epith Cells (0-5/HPF) Amorphous Sediment Urine Bacteria (None) Ur Culture Indicated? Vol Urine Centrifuged Chlamy pneumoniae PCR (Not Detect) Adenovirus (PCR) (Not Detect) B. pertussis DNA (PCR) (Not Detect) B.parapertussis DNA PCR (Not Detecte) Coronavirus OC43 (PCR) (Not Detect) Coronavirus HKU1 (PCR) (Not Detect) Coronavirus 229E (PCR) (Not Detect) SARS-CoV-2 (PCR) (Not Detecte) Coronavirus NL63 (PCR) (Not Detect) Human Metapneumovir PCR (Not Detect) Influenza Type A (PCR) (Not Detect) Influenza Type B (PCR) (Not Detect) M. pneumoniae (PCR) (Not Detect) Parainfluenza 1 (PCR) (Not Detect) Parainfluenza 2 (PCR) (Not Detect) Parainfluenza 3 (PCR) (Not Detect) Parainfluenza 4 (PCR) (Not Detect) RSV (PCR) (Not Detect) Entero/Rhino (PCR) (Not Detect) 07/08/24 07/08/24 07/08/24 Range/Units 09:56 10:17 11:53 WBC (4.5-11.0) X10^3/uL RBC (4.0-5.2) X10^6/uL Hgb (12.0-16.0) g/dL Hct (36-46) % MCV (80-100) fL MCH (26-34) PG MCHC (30-36) % RDW (11.6-14.8) % Plt Count (150-400) X10^3/uL Neut % (Auto) (50-75) % Lymph % (Auto) (25-40) % [place] % (Auto) (3-14) % Eos % (Auto) (2-4) % Baso % (Auto) (0-2) % Neut # (Auto) (4948-4103) /uL Lymph # (Auto) (8448-5790) /uL [place] # (Auto) (0-900) /uL Eos # (Auto) (0-450) /uL Baso # (Auto) (0-100) /uL Sodium 131 L (137-145) mmol/L Potassium 3.5 (3.4-5.1) mmol/L Chloride 105 (98-107) mmol/L Carbon Dioxide 10 L (22-32) mmol/L BUN 36 H (7-17) mg/dL Creatinine 2.40 H (0.52-1.04) mg/dL Estimated GFR 21 L (>60) mL/min BUN/Creatinine Ratio 15.0 (6-22) Glucose 215 H (80-110) mg/dL Lactate 7.4 H* (0.7-2.1) mmol/L Calcium 7.3 L (8.4-10.2) mg/dL Total Bilirubin 1.1 (0.2-1.3) mg/dL AST 76 H (14-36) IU/L ALT 63 H (<35) IU/L Alkaline Phosphatase 73 D (38-126) U/L Total Creatine Kinase (30-135) U/L Troponin I (0.01-0.034) ng/mL Total Protein 4.8 L (6.3-8.2) g/dL Albumin 2.5 L (3.5-5.0) g/dL Globulin 2.3 (1.7-4.1) g/dL Albumin/Globulin Ratio 1.1 (1.0-2.8) Procalcitonin (<0.5) ng/mL Urine Color Yellow Urine Appearance Sl cloudy Urine pH 5.0 (4.5-8.0) Ur Specific [place] 1.010 (1.000-1.035) Urine Protein 1+ H (Negative) Urine Glucose (UA) Negative (Negative) g/dL Urine Ketones Trace H (NEGATIVE) Urine Occult Blood 1+ H (Negative) Urine Nitrate Negative (Negative) Urine Bilirubin Negative (NEGATIVE) Urine Urobilinogen 0.2 (0.2) E.U./dL Ur Leukocyte Esterase Negative (NEGATIVE) Urine RBC 5-10/hpf H (0-5/HPF) Urine WBC 1-5/hpf (0-5/HPF) Ur Squamous Epith Cells 5-10 /hpf H (0-5/HPF) Amorphous Sediment 2+ Urine Bacteria Occasional (0-1) (None) Ur Culture Indicated? Cult not indicated Vol Urine Centrifuged Low vol <10ml (spun) A Chlamy pneumoniae PCR Not detected (Not Detect) Adenovirus (PCR) Not detected (Not Detect) B. pertussis DNA (PCR) Not detected (Not Detect) B.parapertussis DNA PCR Not detected (Not Detecte) Coronavirus OC43 (PCR) Not detected (Not Detect) Coronavirus HKU1 (PCR) Not detected (Not Detect) Coronavirus 229E (PCR) Not detected (Not Detect) SARS-CoV-2 (PCR) Not detected (Not Detecte) Coronavirus NL63 (PCR) Not detected (Not Detect) Human Metapneumovir PCR Not detected (Not Detect) Influenza Type A (PCR) Not detected (Not Detect) Influenza Type B (PCR) Not detected (Not Detect) M. pneumoniae (PCR) Not detected (Not Detect) Parainfluenza 1 (PCR) Not detected (Not Detect) Parainfluenza 2 (PCR) Not detected (Not Detect) Parainfluenza 3 (PCR) Not detected (Not Detect) Parainfluenza 4 (PCR) Not detected (Not Detect) RSV (PCR) Not detected (Not Detect) Entero/Rhino (PCR) Not detected (Not Detect) 07/08/24 Range/Units 14:00 WBC (4.5-11.0) X10^3/uL RBC (4.0-5.2) X10^6/uL Hgb (12.0-16.0) g/dL Hct (36-46) % MCV (80-100) fL MCH (26-34) PG MCHC (30-36) % RDW (11.6-14.8) % Plt Count (150-400) X10^3/uL Neut % (Auto) (50-75) % Lymph % (Auto) (25-40) % [place] % (Auto) (3-14) % Eos % (Auto) (2-4) % Baso % (Auto) (0-2) % Neut # (Auto) (3520-3197) /uL Lymph # (Auto) (4707-5879) /uL [place] # (Auto) (0-900) /uL Eos # (Auto) (0-450) /uL Baso # (Auto) (0-100) /uL Sodium (137-145) mmol/L Potassium (3.4-5.1) mmol/L Chloride (98-107) mmol/L Carbon Dioxide (22-32) mmol/L BUN (7-17) mg/dL Creatinine (0.52-1.04) mg/dL Estimated GFR (>60) mL/min BUN/Creatinine Ratio (6-22) Glucose (80-110) mg/dL Lactate 6.4 H* (0.7-2.1) mmol/L Calcium (8.4-10.2) mg/dL Total Bilirubin (0.2-1.3) mg/dL AST (14-36) IU/L ALT (<35) IU/L Alkaline Phosphatase (38-126) U/L Total Creatine Kinase (30-135) U/L Troponin I (0.01-0.034) ng/mL Total Protein (6.3-8.2) g/dL Albumin (3.5-5.0) g/dL Globulin (1.7-4.1) g/dL Albumin/Globulin Ratio (1.0-2.8) Procalcitonin (<0.5) ng/mL Urine Color Urine Appearance Urine pH (4.5-8.0) Ur Specific [place] (1.000-1.035) Urine Protein (Negative) Urine Glucose (UA) (Negative) g/dL Urine Ketones (NEGATIVE) Urine Occult Blood (Negative) Urine Nitrate (Negative) Urine Bilirubin (NEGATIVE) Urine Urobilinogen (0.2) E.U./dL Ur Leukocyte Esterase (NEGATIVE) Urine RBC (0-5/HPF) Urine WBC (0-5/HPF) Ur Squamous Epith Cells (0-5/HPF) Amorphous Sediment Urine Bacteria (None) Ur Culture Indicated? Vol Urine Centrifuged Chlamy pneumoniae PCR (Not Detect) Adenovirus (PCR) (Not Detect) B. pertussis DNA (PCR) (Not Detect) B.parapertussis DNA PCR (Not Detecte) Coronavirus OC43 (PCR) (Not Detect) Coronavirus HKU1 (PCR) (Not Detect) Coronavirus 229E (PCR) (Not Detect) SARS-CoV-2 (PCR) (Not Detecte) Coronavirus NL63 (PCR) (Not Detect) Human Metapneumovir PCR (Not Detect) Influenza Type A (PCR) (Not Detect) Influenza Type B (PCR) (Not Detect) M. pneumoniae (PCR) (Not Detect) Parainfluenza 1 (PCR) (Not Detect) Parainfluenza 2 (PCR) (Not Detect) Parainfluenza 3 (PCR) (Not Detect) Parainfluenza 4 (PCR) (Not Detect) RSV (PCR) (Not Detect) Entero/Rhino (PCR) (Not Detect) Imaging Data CT scan - abdomen/pelvis: Radiologist's Impression: PROCEDURE: CT ANGIO CHEST ABDOMEN PELVIS INDICATIONS: left flank pain hypotension known right kidney stone TECHNIQUE: Precontrast 5 mm thick sections acquired from the lung apices to the iliac crests. After the administration of intravenous contrast, 2.5 mm thick sections again acquired from the lung apices to the iliac crests. Maximum intensity projection (MIP) oblique sagittal and coronal reformats were then acquired. For radiation dose reduction, the following was used: automated exposure control. COMPARISON: [facility], CT, CT KIDNEY URETER BLADDER (KUB), 07/07/2024, 8:29. FINDINGS: Image quality: Diagnostic. AORTA: No aortic aneurysm. No acute aortic syndrome. CHEST: Lower Neck: No enlarged lymph nodes. Thyroid: No thyroid nodules which require sonographic evaluation. Axillae: No enlarged lymph nodes. Chest Wall: Unremarkable. Lungs and Pleura: No pneumothorax or pleural effusions. No consolidation or suspicious nodules. Heart: Heart size is normal. No pericardial effusion. Thoracic Vessels: Pulmonary arteries demonstrate normal size. Mediastinum and Dorcas: No enlarged lymph nodes. Esophagus: No wall thickening. The upper esophagus is dilated and fluid-filled likely representing reflux. ABDOMEN: Liver: No solid mass. Gallbladder: Surgically absent Biliary ducts: No biliary dilation. Pancreas: No ductal dilation. Spleen: Size is within normal limits. Adrenal Glands: No adrenal nodules. Kidneys and Ureters: Again noted is moderate right hydronephrosis and hydroureter. The calcification noted in the right lower pelvis on previous image 127 of series 2 and current image 121 of series 4 is on likely in the ureter, and more likely represents a newly formed calcified phlebolith. Stomach and Bowel: Normal colonic caliber, without significant wall thickening. Extensive diverticulosis without evidence of acute diverticulitis. Remote partial proximal colectomy. Peritoneum: No abnormal intraperitoneal fluid. No free air. Ventral Wall: No hernia. Abdominal Nodes: No retroperitoneal or mesenteric adenopathy by size criteria. Vessels: Inferior vena cava is normal in size. PELVIS: Pelvic Organs: A Gandara catheter appears to be present in the vagina.. Bladder: Unremarkable. Pelvic Nodes: No enlarged lymph nodes. Miscellaneous: No inguinal hernias are seen. Bones: Lumbar degenerative change. A peripherally calcified disc protrusion at L2-L3 results in canal stenosis. No lytic or blastic bony lesions. No compression fractures. IMPRESSION: 1. There is moderate right hydronephrosis and hydroureter. The ureter is dilated down to the level of the base of the bladder. However, there is no radiopaque stone present obstructing the ureter. The calcifications seen on the previous study is likely unrelated to the ureter. 2. The Gandara catheter appears to be present in the vagina. 3. Fluid present in a dilated esophagus likely represents reflux. No findings suspicious for an obstructing lesion. 4. No acute pulmonary infiltrates. 5. No other potentially acute findings in the abdomen and pelvis. 6. Extensive diverticulosis without evidence of acute diverticulitis. 7. A peripherally calcified disc protrusion at L2-L3 results in canal stenosis. Comment: Findings were discussed with Dr. Isidro at the time of study dictation. Dictated by: Tony Vance M.D. on 07/08/2024 at 8:51 Approved by: Tony Vance M.D. on 07/08/2024 at 9:06 ECG Data Attestation: I personally reviewed and interpreted this ECG as follows: Prior ECG tracings: available for review Interpretation: Normal sinus rhythm rate 112 WI interval 184 QRS 90 QTC [address] changes MDM Narrative Medical decision making narrative: MDM CC: Left flank pain Complicating co-morbidities: TIA, hypertension, hypothyroid Corroborating data: Jesica Quezada Daughter, I spoke to her on the phone states that patient is full code. Medical records reviewed: ED visit yesterday had CT KUB showed 3-4 mm right nephrolithiasis no leukocytosis creatinine was 1.2. Yesterday noted to be mildly tachycardic 105 to 111 in hypertensive Differential considered: Aneurysm dissection sepsis shock, anemia Exam documented above, pertinent findings include: Pale weak dry mucous membranes, abdomen is soft no peritoneal signs Lab Test results independently reviewed as above. Pertinent findings: Lactate 6.6--> 6.6-->7.4 Procalcitonin 40.0 Troponin 2.2-->1.73 CMP sodium 134 potassium 3.6 chloride 105 bicarb 15 BUN 39 creatinine 2.5 -->2.4 Bilirubin 1.1 AST 54 ALT 8, alk-phos 144 5 Independently reviewed EKG as above: Tachycardic no ischemic changes Imaging studies independently reviewed: No nephrolithiasis persistent right hydronephrosis Consultations: [id number] [facility], reviewed images, no intervention indicated [facility] transfer center 11:20 Dr. Warren, cd mixer helper updated patient's symptoms test results recommended decreasing LR adding vasopressin 11:45 Dr. Cortes, [place] [facility] accepts patient currently ICU at 150% waiting for bed availability Patient accepted at Treatments: Sepsis fluids, Levophed, Zosyn, vancomycin, vasopressin Re-evaluations: Patient still hypotensive very little urine output added vasopressin. Discussion: 74-year-old female presenting today with left flank pain. She was diagnosed with a right nephrolithiasis yesterday. Today she is found to be hypotensive tachycardic concerning for septic shock. She was given IV fluids for sepsis and started on Levophed. Blood pressure did improve slightly with fluids. She is significant lactic acid of 6.6. Troponin is also positive at 2.2, with repeat of 1.7 thought to be demand ischemia she has no ischemic changes or chest pain, no heparin given Patient's source of infection is not identified. Urinalysis yesterday and today are both negative. CT today did not show nephrolithasis, but yesterday's did. She has no pneumonia respiratory panel is negative. I do suspect she has a bacteremia but unclear from where. She has no obvious cellulitis. She is treated with broad-spectrum antibiotics. Patient continues to require increasing Levophed support. Vasopressin was added. Tried to titrate down Levophed blood pressure is really quite labile. Patient became hypothermic required a Aimee Hugger which then quickly her temperature came out. She has a temperature sensing Gandara catheter in place. Family at bedside. Daughter Miley is DPOA I have spoken to her on the phone and updated her on patient's symptoms reported that she is critically ill going to ICU. For now she states that she is a full code. Critical Care Time Critical Care Time Critical Care Time: Yes Total Critical Care Time: 45 Attestation: The high probability of a clinically significant, sudden or life threatening deterioration of the [cardiovascular] system(s) required my full and direct attention, intervention and personal management. The aggregate critical care time was [45] minutes. This time is in addition to time spent performing reported procedures but includes the following: [x] Data Review and interpretation [x] Patient assessment and monitoring of vital signs [x] Documentation [x] Medication orders and management Discharge Plan Departure Patient Disposition: [facility] Clinical Impression: Septic shock Prescriptions: No Action multivitamin Tablet 1 tab PO DAILY Qty: 0 metformin 500 mg tablet 1,000 mg PO BID glyburide 2.5 mg tablet 2.5 mg PO DAILY Patient Comments: patient states supposed to take but ran out about a month ago hydrocodone-acetaminophen 5-325 mg tablet 1 tab PO Q6-8H PRN (Reason: pain) Qty: 14 0RF Rx Instructions: take with stool softner tamsulosin 0.4 mg capsule 0.4 mg PO DAILY Qty: 14 0RF Rx Instructions: discontinue after kidney stone has passed lisinopril 20 mg tablet 20 mg PO DAILY Patient Comments: TAKE 1 TABLET BY MOUTH EVERY DAY levothyroxine 125 mcg tablet 125 mcg PO DAILY Patient Comments: TAKE 1 TABLET BY MOUTH EVERY DAY ketoconazole 2 % cream 1 applic TOPICAL BID PRN (Reason: Rash) Patient Comments: Apply 1 liberally to affected area twice a day for rash on groin and feet cefuroxime axetil 500 mg tablet 500 mg PO BID Qty: 14 0RF Referrals: Karely Álvarez ARNP [Primary Care Provider] -
[2024-07-08 07:29] LABS: Add Manual Diff / Slide Review NO; Basophils Absolute Auto 0 /uL (0-100); Basophils Percent Auto 0.1 % (0-2); Eosinophils Absolute Auto 0 /uL (0-450); Eosinophils Percent Auto 0.1 % (2-4); Hemoglobin 11.9 g/dL (12.0-16.0); Lymphocytes Absolute Auto 300 /uL (1100-4500); Lymphocytes Percent Auto 4.4 % (25-40); Mean Corpuscular Hemoglobin 28.4 PG (26-34); Mean Corpuscular Volume 83.7 fL (80-100); Monocytes Absolute Auto 200 /uL (0-900); Monocytes Percent Auto 2.5 % (3-14); Neutrophils Absolute Auto 7100 /uL (1500-7000); Neutrophils Percent Auto 92.9 % (50-75); Platelet Count 92 X10^3/uL (150-400); Red Blood Cell Count 4.18 X10^6/uL (4.0-5.2); Red Cell Distribution Width 13.7 % (11.6-14.8); White Blood Cell Count 7.7 X10^3/uL (4.5-11.0)
--- NOTE | 2024-07-08 07:29 | EKG_ITS ---
[address] [address] Test Date: 2024-07-08 Pat Name: Mana Stewart Department: [facility] Room: Gender: Female Forepart Rasper: DESHAWN : 1950 Requested By: Order Number: [id number] Reading MD: Иван Peña Measurements Intervals [place] Rate: 112 P: 77 KS: 184 QRS: -37 QRSD: 90 T: 55 QT: 368 QTc: 502 Interpretive Statements Sinus tachycardia Left axis deviation Electronically Signed On 07-11-2024 15:55:32 PDT by Иван Peña
--- NOTE | 2024-07-08 07:36 | DI.CT.S_ITS ---
PROCEDURE: CT ANGIO CHEST ABDOMEN PELVIS INDICATIONS: left flank pain hypotension known right kidney stone TECHNIQUE: Precontrast 5 mm thick sections acquired from the lung apices to the iliac crests. After the administration of intravenous contrast, 2.5 mm thick sections again acquired from the lung apices to the iliac crests. Maximum intensity projection (MIP) oblique sagittal and coronal reformats were then acquired. For radiation dose reduction, the following was used: automated exposure control. COMPARISON: [facility], CT, CT KIDNEY URETER BLADDER (KUB), 07/07/2024, 8:29. FINDINGS: Image quality: Diagnostic. AORTA: No aortic aneurysm. No acute aortic syndrome. CHEST: Lower Neck: No enlarged lymph nodes. Thyroid: No thyroid nodules which require sonographic evaluation. Axillae: No enlarged lymph nodes. Chest Wall: Unremarkable. Lungs and Pleura: No pneumothorax or pleural effusions. No consolidation or suspicious nodules. Heart: Heart size is normal. No pericardial effusion. Thoracic Vessels: Pulmonary arteries demonstrate normal size. Mediastinum and Dorcas: No enlarged lymph nodes. Esophagus: No wall thickening. The upper esophagus is dilated and fluid-filled likely representing reflux. ABDOMEN: Liver: No solid mass. Gallbladder: Surgically absent Biliary ducts: No biliary dilation. Pancreas: No ductal dilation. Spleen: Size is within normal limits. Adrenal Glands: No adrenal nodules. Kidneys and Ureters: Again noted is moderate right hydronephrosis and hydroureter. The calcification noted in the right lower pelvis on previous image 127 of series 2 and current image 121 of series 4 is on likely in the ureter, and more likely represents a newly formed calcified phlebolith. Stomach and Bowel: Normal colonic caliber, without significant wall thickening. Extensive diverticulosis without evidence of acute diverticulitis. Remote partial proximal colectomy. Peritoneum: No abnormal intraperitoneal fluid. No free air. Ventral Wall: No hernia. Abdominal Nodes: No retroperitoneal or mesenteric adenopathy by size criteria. Vessels: Inferior vena cava is normal in size. PELVIS: Pelvic Organs: A Gandara catheter appears to be present in the vagina.. Bladder: Unremarkable. Pelvic Nodes: No enlarged lymph nodes. Miscellaneous: No inguinal hernias are seen. Bones: Lumbar degenerative change. A peripherally calcified disc protrusion at L2-L3 results in canal stenosis. No lytic or blastic bony lesions. No compression fractures. IMPRESSION: 1. There is moderate right hydronephrosis and hydroureter. The ureter is dilated down to the level of the base of the bladder. However, there is no radiopaque stone present obstructing the ureter. The calcifications seen on the previous study is likely unrelated to the ureter. 2. The Gandara catheter appears to be present in the vagina. 3. Fluid present in a dilated esophagus likely represents reflux. No findings suspicious for an obstructing lesion. 4. No acute pulmonary infiltrates. 5. No other potentially acute findings in the abdomen and pelvis. 6. Extensive diverticulosis without evidence of acute diverticulitis. 7. A peripherally calcified disc protrusion at L2-L3 results in canal stenosis. Comment: Findings were discussed with Dr. Isidro at the time of study dictation. Dictated by: Tony aVnce M.D. on 07/08/2024 at 8:51 Approved by: Tony Vance M.D. on 07/08/2024 at 9:06
[2024-07-08 07:47] LABS: Alanine Aminotransferase 85 IU/L (<35); Albumin 3.5 g/dL (3.5-5.0); Albumin Globulin Ratio 1.4 (1.0-2.8); Alkaline Phosphatase 144 U/L (38-126); Aspartate Aminotransferase 54 IU/L (14-36); BUN Creatinine Ratio 15.6 (6-22); Bilirubin Total 1.1 mg/dL (0.2-1.3); Blood Urea Nitrogen 39 mg/dL (7-17); Calcium 8.7 mg/dL (8.4-10.2); Carbon Dioxide 15 mmol/L (22-32); Chloride 104 mmol/L (98-107); Creatine Kinase 241 U/L (30-135); Estimated Glomerular Filt Rate 20 mL/min (>60); Globulin 2.5 g/dL (1.7-4.1); Glucose 222 mg/dL (80-110); HEMOLYSIS < 15 (0-50); Potassium 3.6 mmol/L (3.4-5.1); Sodium 134 mmol/L (137-145)
[2024-07-08 07:54] LABS: Lactate (Lactic Acid) 6.6 mmol/L (0.7-2.1)
[2024-07-08] MEDS: PIPERACILLIN/TAZO 4.5 GM in SODIUM CHLORIDE 0.9% 100 ML IV (08:01)
[2024-07-08 08:04] LABS: Procalcitonin 40.4 ng/mL (<0.5)
[2024-07-08] MEDS: NOREPINEPHRINE BITARTRATE/D5W 4 MG/250 ML PLAST..BAG 23.814 MG IV (08:15)
[2024-07-08 08:56] LABS: Reflexed Lactate in 2 Hours Y
[2024-07-08] MEDS: LACTATED RINGERS 635.03 ML IV (08:57)
--- NOTE | 2024-07-08 09:33 | DI.RAD.S_ITS ---
PROCEDURE: XR CHEST 1V INDICATIONS: post central line TECHNIQUE: One view of the chest was acquired. COMPARISON: [facility], CR, XR CHEST 1V, 04/25/2024, 3:35. FINDINGS: Surgical changes and devices: Right-sided central venous catheter with distal tip overlying the mid SVC. Lungs and pleura: Lungs are clear. No pleural effusions or pneumothorax. Mediastinum: Mediastinal contours appear normal. Heart size is enlarged. Bones and chest wall: No suspicious bony lesions. Overlying soft tissues appear unremarkable. IMPRESSION: No acute pulmonary process. Dictated by: Billie Britton M.D. on 07/08/2024 at 10:17 Approved by: Billie Britton M.D. on 07/08/2024 at 10:17
[2024-07-08 09:54] LABS: Lactate 2HR (Lactic Acid Rflx) 6.6 mmol/L (0.7-2.1)
[2024-07-08] MEDS: VANCOMYCIN 1,250 MG/250 ML PIGGYBACK 250 MG IV (10:09)
[2024-07-08] MEDS: ACETAMINOPHEN IV 1,000 MG/100 ML VIAL 400 MG IV (10:10)
[2024-07-08 10:46] LABS: Appearance Urine UA SL CLOUDY; Bilirubin Urine UA NEGATIVE (NEGATIVE); Color Urine UA YELLOW; Glucose Urine UA NEGATIVE (Negative); Ketones Urine UA TRACE (NEGATIVE); Leukocyte Esterase Urine UA NEGATIVE (NEGATIVE); Nitrite Urine UA NEGATIVE (Negative); Occult Blood Urine UA 1+ (Negative); Protein Urine UA 1+ (Negative); Urobilinogen Urine UA 0.2 E.U./dL (0.2)
[2024-07-08 11:01] LABS: Amorphous Sediment Urine 2+; Bacteria Urine Occasional (0-1); Culture Indicated Urine Cult Not Indicated; RBC Urine 5-10/HPF (0-5/HPF); Squamous Epithelial Cell Urine 5-10 /HPF (0-5/HPF); Urine Volume Low Vol <10mL (spun); WBC Urine 1-5/HPF (0-5/HPF)
[2024-07-08] MEDS: MORPHINE 2 MG/ML INJ IV (11:11)
[2024-07-08 11:17] LABS: Adenovirus Not Detected (Not Detect); B. parapertussis Not Detected (Not Detecte); Bordetella pertussis Not Detected (Not Detect); Chlamydophila pneumoniae Not Detected (Not Detect); Coronavirus 229E Not Detected (Not Detect); Coronavirus HKU1 Not Detected (Not Detect); Coronavirus NL 63 Not Detected (Not Detect); Coronavirus OC43 Not Detected (Not Detect); Human Metapneumovirus Not Detected (Not Detect); Human Rhinovirus/Enterovirus Not Detected (Not Detect); Influenza A Not Detected (Not Detect); Influenza B Not Detected (Not Detect); Mycoplasma pneumoniae Not Detected (Not Detect); Parainfluenza Virus 1 Not Detected (Not Detect); Parainfluenza Virus 2 Not Detected (Not Detect); Parainfluenza Virus 3 Not Detected (Not Detect); Parainfluenza Virus 4 Not Detected (Not Detect); Respiratory Syncytial Virus Not Detected (Not Detect); SARS- CoV-2 Not Detected (Not Detecte)
[2024-07-08] MEDS: NOREPINEPHRINE BITARTRATE/D5W 4 MG/250 ML PLAST..BAG 190.509 MG IV ×3 (11:19→14:40)
[2024-07-08] MEDS: LACTATED RINGERS 1,000 ML 125 ML IV (11:39)
[2024-07-08] MEDS: VASOPRESSIN 40 UNIT in SODIUM CHLORIDE 0.9% 100 ML 4.5 UNIT IV (11:42)
[2024-07-08 12:19] LABS: Albumin 2.5 g/dL (3.5-5.0); Albumin Globulin Ratio 1.1 (1.0-2.8); Alkaline Phosphatase 73 U/L (38-126); Aspartate Aminotransferase 76 IU/L (14-36); Bilirubin Total 1.1 mg/dL (0.2-1.3); Blood Urea Nitrogen 36 mg/dL (7-17); Calcium 7.3 mg/dL (8.4-10.2); Carbon Dioxide 10 mmol/L (22-32); Chloride 105 mmol/L (98-107); Estimated Glomerular Filt Rate 21 mL/min (>60); Globulin 2.3 g/dL (1.7-4.1); Glucose 215 mg/dL (80-110); HEMOLYSIS < 15 (0-50); Potassium 3.5 mmol/L (3.4-5.1); Sodium 131 mmol/L (137-145); Total Protein 4.8 g/dL (6.3-8.2)
[2024-07-08 12:20] LABS: Lactate (Lactic Acid) 7.4 mmol/L (0.7-2.1)
[2024-07-08 12:25] LABS: Alanine Aminotransferase 63 IU/L (<35)
[2024-07-08 13:31] LABS: Reflexed Lactate in 2 Hours Y
--- NOTE | 2024-07-08 13:45 | PC.NURSE ---
Pt temp 95.7. Denies pain. Remains on norepi and vasopressin. Pt covered in warm blankets and holly herroner. Dr Holder notified
[2024-07-08] MEDS: PIPERACILLIN/TAZO 3.375 GM in SODIUM CHLORIDE 0.9% 100 ML IV (13:57)
[2024-07-08 14:32] LABS: Lactate 2HR (Lactic Acid Rflx) 6.4 mmol/L (0.7-2.1)
--- NOTE | 2024-07-08 14:50 | PC.NURSE ---
Report given to JULY RN & EMT. Pt a&ox4 at the time of transfer. Pt transferred with vasopressin, norepi, piperacillin-tazo & LR. Pt's bp remains stable at the time of transfer.
--- NOTE | 2024-07-08 15:08 | PC.NURSE ---
Addendum entered by Ariela Feliciano R.N. 07/08/24 15:23: Gave report to journalist Original Note: Attempted multiple times to call report to [facility]. Phone number & extension given for report did not work. Called transfer center and transfer center advised to call main number because the tamper operator could connect me to unit. Phone rang until I was disconnected. Called main number x3. Called transfer center again, given warehouse distribution specialist cell phone number. Spoke with warehouse distribution specialist. supervisor photostat gave direct line to ICU. Unable to reach RN for report
--- NOTE | 2024-07-08 20:11 | PC.NURSE ---
Advised Dr. Isidro of results pt sent to [facility]. Results printed and faxed.
== END 2024-07-08 15:25 | disposition short-term general hospital (02) ==
PROVIDERS: Emergency Provider Emergency Medicine; PCP Internal Medicine
DX: A41.9 Sepsis, unspecified organism (principal); R00.0 Tachycardia, unspecified; R10.9 Unspecified abdominal pain; I95.9 Hypotension, unspecified; N20.0 Calculus of kidney; Z11.52 Encounter for screening for COVID-19; Z86.73 Personal history of transient ischemic attack (TIA), and cerebral infarction without residual deficits; Z79.899 Other long term (current) drug therapy
CPT/HCPCS: 36415; 36569; 71045; 71275; 74174; 80053; 81001; 82550; 83605; 84145; 84484; 85025; 87040; 87077; 87186; 87633; 93005; 96361; 96365; 96366; 96367; 96368; 96375; 99284; 99291; J0134; J2270; J2543

== ENCOUNTER → 2024-10-14 12:20 | Outpatient (ROUT) | payer OTHER, SELFPAY ==
[2024-04-25 03:22] VITALS: BMI 22.0
[2024-10-14 12:39] LABS: INR 2.5 (0.9-1.3); Prothrombin Time 27.4 SECONDS (9.4-12.5)
== END ==
PROVIDERS: PCP Internal Medicine; Visit Provider Family Medicine
DX: Z00.00 Encounter for general adult medical examination without abnormal findings (principal)
CPT/HCPCS: 85610